=== PATIENT | male | born 1960 | race African-American/Black ===

== ENCOUNTER 2017-11-27 01:16 | Inpatient (IN) ==
[2017-11-27] MEDS ORDERED: MethylPREDNISolone Sod Succinate Inj 125 MG/2 ML Vial IV.PUSH ONE (01:22)
[2017-11-27] MEDS ORDERED: Famotidine PF Inj 20 MG/2 ML Vial IV.PUSH ONE (01:22)
[2017-11-27] MEDS ORDERED: RESP: Racemic Epinephrine 2.25% 0.5 ML Neb ONE (01:33)
[2017-11-27] MEDS ORDERED: RESP: Racemic Epinephrine 2.25% 0.5 ML Neb NEB ONE (01:35)
--- NOTE | 2017-11-27 01:39 | ED ---
HPI General Chief complaint: Allergic Reaction Stated complaint: Pos Allergic Reaction/Evac Time Seen by Provider: 11/27/17 01:22 History of Present Illness HPI narrative: 57-year-old male presents to the emergency department with upper and lower lip angioedema since approximately 8 PM with progressive worsening. Prior to arrival to the emergency department patient did receive a dose of Benadryl and epinephrine. Patient states that he is noted some decrease in swelling to the left side of the upper lip but still feels like there is significant swelling to the upper and lower lip and has some tightness in his throat. Patient does have hypertension and has been prescribed lisinopril in the past but states he has not been on any blood pressure medication for at least 1 week. Patient did eat shellfish this evening. Patient does not represent with a urticarial rash. No prior history of acute allergic reaction was similar type symptoms although does have a sensitivity with itching to morphine and rash and hives to penicillin. No recent antibiotic prescription or use. Related Data Home Medications Medication Instructions Recorded Confirmed lisinopril See Label Instructions .ROUTE 11/27/17 11/27/17 .COMPLEX Allergies Allergy/AdvReac Type Severity Reaction Status Date / Time morphine Allergy Mild ITCHING Unverified 11/27/17 03:20 -SWELLING penicillin G Allergy Mild RASH AND Unverified 11/27/17 03:20 HIVES Review of Systems ROS: all other systems reviewed are negative PMFSH Medical History Medical History Cervical vertebral fusion (Acute) HTN (hypertension) (Acute) Social History Social History Substance History: No History of Abuse Smoking Status: Never smoker How Often Do You Have a Drink Containing Alcohol: 2 to 4 times a month Hx Recent Travel: No Recent Travel in [facility] within the Last 8 Weeks: No Recent Out of Country Travel within the Last 8 Weeks: No Exam Narrative Exam Narrative: GENERAL: Well-nourished, well-developed patient. Patient in mild respiratory distress with upper and lower lip angioedema no buccal edema no posterior pharyngeal or uvular edema identified no stridor or hoarseness. SKIN: Focused skin assessment warm/dry. HEAD: Normocephalic. EYES: No scleral icterus. No injection or drainage. ENT: Upper and lower lip angioedema tongue without angioedema posterior pharynx and uvula without angioedema noted NECK: Supple, trachea midline. No JVD or lymphadenopathy. CARDIOVASCULAR: Regular rate and rhythm without murmurs, gallops, or rubs. RESPIRATORY: Breath sounds equal bilaterally. No accessory muscle use. GASTROINTESTINAL: Abdomen soft, non-tender, nondistended. MUSCULOSKELETAL: No cyanosis, or edema. BACK: Nontender without obvious deformity. No CVA tenderness. Procedures Intubation Time Out Performed: Yes Sedative: other (topical viscous lidoacaine) Laryngoscope: other (nasal intubation w/o laryngoscope) ET Tube Size: 6.5 ET Tube Uncuffed: No Tube Secured Location: other (right nostril) Tube Placement Confirmation: equal breath sounds bilaterally and no breath sounds over epigastrium Patient Tolerated Procedure: well Intubation Complications: none Additional Comments: Patient with angioedema with stridor and hoarseness intubated with 6.5 cuffed endotracheal tube via the right nare. Consult placed to anesthesiologist recommends 2% lidocaine via endotracheal tube for laryngospasm Course Initial Documented Vital Signs Pulse Rate 90 11/27/17 01:33 Respiratory Rate 20 11/27/17 01:33 Last Documented Vital Signs Temperature 98.5 F 11/27/17 02:00 Pulse Rate 100 H 11/27/17 06:08 Respiratory Rate 18 11/27/17 06:08 Blood Pressure 151/106 H 11/27/17 06:08 Pulse Oximetry 96 11/27/17 06:08 Critical Care Time Critical Care Time: Yes Total Critical Care Time: 35 Attestation: Aggregate critical care time was 35 minutes. Time to perform other separately billable procedures was not included in the critical care time. My time did not include minutes spent treating any other patients simultaneously or on activities that did not directly contribute to the patient's treatment. The services I provided to this patient were to treat and/or prevent clinically significant deterioration that could result in: Anaphylaxis, arrhythmia, respiratory arrest, I provided critical care services requiring my management, as noted below: Chart data review, documentation time, medication orders and management, vital sign assessments/reviewing monitor data, ordering and reviewing lab tests, ordering and interpreting/reviewing x-rays and diagnostic studies, care of the patient and discussion of the patient with the admitting physicians. Medical Decision Making MDM Narrative Medical decision making narrative: 57-year-old male with acute allergic reaction /angioedema without anaphylaxis Patient administered IV Solu-Medrol 125 mg, IV Pepcid 20 mg, IV Benadryl 25 mg, IM epinephrine 1-1000 concentration and an albuterol updraft 1 Patient complaining of throat irritation and swelling administered racemic epinephrine 1 nebulized treatment Patient with nausea increasing throat tightness and developing some hoarseness and mild stridor decision was made to nasally intubate the patient. Viscous lidocaine applied to the endotracheal tube and patient nasally intubated through the right naris without difficulty. Patient with complaint of irritation from endotracheal tube administered nebulized lidocaine 4% At 2:50 AM turn sewer at bedside Differential Diagnosis Differential Diagnosis: Angioedema, allergic reaction; anaphylaxis Medical Records Medical records reviewed: Yes I reviewed the patient's medical records. Lab Data Result diagrams: 11/27/17 01:54 11/27/17 01:54 Lab Results 11/27/17 11/27/17 11/27/17 Range/Units 01:54 01:54 01:54 WBC 5.6 (4.0-11.0) th/mm3 RBC 4.14 L (4.50-5.90) mil/mm3 Hgb 11.7 L (13.0-17.0) gm/dL Hct 34.9 L (39.0-51.0) % MCV 84.2 (80.0-100.0) fL MCH 28.3 (27.0-34.0) pg MCHC 33.7 (32.0-36.0) % RDW 17.5 H (11.6-17.2) % Plt Count 195 (150-450) th/mm3 MPV 9.7 (7.0-11.0) fL Prelim Diff (Auto) Slide review pending Neut % (Auto) 23.4 (16.0-70.0) % Lymph % (Auto) 67.0 H (9.0-44.0) % [place] % (Auto) 7.4 (0.0-8.0) % Eos % (Auto) 1.5 (0.0-4.0) % Baso % (Auto) 0.7 (0.0-2.0) % Neut # (Auto) 1.3 L (1.8-7.7) th/mm3 Lymph # (Auto) 3.7 (1.0-4.8) th/mm3 [place] # (Auto) 0.4 (0.0-0.9) th/mm3 Eos # (Auto) 0.1 (0.0-0.4) th/mm3 Baso # (Auto) 0.0 (0.0-0.2) th/mm3 WBC Differential . Diff Scan Auto diff confirmed Differential Comment . PT 10.0 (9.8-11.6) sec INR 1.0 Ratio APTT 24.0 L (24.3-30.1) sec Sodium 139 (136-145) meq/L Potassium 3.1 L (3.5-5.1) meq/L Chloride 103 (98-107) meq/L Carbon Dioxide 27.2 (21.0-32.0) meq/L Anion Gap 9 (5-15) meq/L BUN 8 (7-18) mg/dL Creatinine 1.17 (0.60-1.30) mg/dL Estimated GFR 78 L (>89) mL/min Random Glucose 110 H (74-106) mg/dL Calcium 8.5 (8.5-10.1) mg/dL Blood Type Blood Type Recheck Antibody Screen 11/27/17 Range/Units 01:54 WBC (4.0-11.0) th/mm3 RBC (4.50-5.90) mil/mm3 Hgb (13.0-17.0) gm/dL Hct (39.0-51.0) % MCV (80.0-100.0) fL MCH (27.0-34.0) pg MCHC (32.0-36.0) % RDW (11.6-17.2) % Plt Count (150-450) th/mm3 MPV (7.0-11.0) fL Prelim Diff (Auto) Neut % (Auto) (16.0-70.0) % Lymph % (Auto) (9.0-44.0) % [place] % (Auto) (0.0-8.0) % Eos % (Auto) (0.0-4.0) % Baso % (Auto) (0.0-2.0) % Neut # (Auto) (1.8-7.7) th/mm3 Lymph # (Auto) (1.0-4.8) th/mm3 [place] # (Auto) (0.0-0.9) th/mm3 Eos # (Auto) (0.0-0.4) th/mm3 Baso # (Auto) (0.0-0.2) th/mm3 WBC Differential Diff Scan Differential Comment PT (9.8-11.6) sec INR Ratio APTT (24.3-30.1) sec Sodium (136-145) meq/L Potassium (3.5-5.1) meq/L Chloride (98-107) meq/L Carbon Dioxide (21.0-32.0) meq/L Anion Gap (5-15) meq/L BUN (7-18) mg/dL Creatinine (0.60-1.30) mg/dL Estimated GFR (>89) mL/min Random Glucose (74-106) mg/dL Calcium (8.5-10.1) mg/dL Blood Type O Positive Blood Type Recheck Required Antibody Screen Negative Imaging Data Radiologist's impression: Chest X-Ray 11/27/17 02:02 CONCLUSION: Clear lungs. Discharge Plan Discharge Disposition Patient Disposition: 30 Still Patient Discharge Condition Condition: Stable Discharge Details Diagnosis: Angioedema Physicians Team ED Provider: Saira Albright Primary Care Provider: Primary Care Elina Dumont Attending Provider: Sohail Correa Status ED Status: Admitted Patient
[2017-11-27 02:19] LABS: Baso % (Auto) 0.7 % (0.0-2.0); Eos # (Auto) 0.1 th/mm3 (0.0-0.4); Eos % (Auto) 1.5 % (0.0-4.0); Hematocrit 34.9 % (39.0-51.0); Hemoglobin 11.7 gm/dL (13.0-17.0); Lymph # (Auto) 3.7 th/mm3 (1.0-4.8); Mean Corpuscular HGB Conc 33.7 % (32.0-36.0); Mean Corpuscular Hemoglobin 28.3 pg (27.0-34.0); Mean Corpuscular Volume 84.2 fL (80.0-100.0); Mean Platelet Volume 9.7 fL (7.0-11.0); Mono # (Auto) 0.4 th/mm3 (0.0-0.9); Mono % (Auto) 7.4 % (0.0-8.0); Neut # (Auto) 1.3 th/mm3 (1.8-7.7); Neut % (Auto) 23.4 % (16.0-70.0); Platelet Count 195 th/mm3 (150-450); Red Blood Count 4.14 mil/mm3 (4.50-5.90); Red Cell Distribution Width 17.5 % (11.6-17.2); White Blood Count 5.6 th/mm3 (4.0-11.0)
[2017-11-27 02:33] LABS: Calcium 8.5 mg/dL (8.5-10.1); Carbon Dioxide 27.2 meq/L (21.0-32.0); Potassium 3.1 meq/L (3.5-5.1)
--- NOTE | 2017-11-27 02:39 | XR ---
EXAM DATE: 11/27/2017 2:34 AM EDT AGE/SEX: 57 years / Male INDICATIONS: Shortness of breath status post allergic reaction. CLINICAL DATA: This is the patient's initial encounter. Patient reports that signs and symptoms have been present for 1 day and indicates a pain score of Nonresponsive. MEDICAL/SURGICAL HISTORY: Non-responsive. Non-responsive. COMPARISON: No prior exams available for comparison. FINDINGS: Endotracheal tube is noted and the tip terminates approximately 1.9 cm above the bird. The lungs ar e clear. Heart size is normal. Osseous structures are intact. CONCLUSION: Clear lungs. Electronically signed by: Gary Foreman MD 11/27/2017 2:37 AM EDT
[2017-11-27] MEDS ORDERED: Ketorolac Inj 30 MG/ML (IVP) Vial IV.PUSH ONE (02:41)
[2017-11-27] MEDS ORDERED: RESP: Lidocaine PF 4% 5 ML Neb NEB ONE (02:43)
[2017-11-27] MEDS ORDERED: Acetaminophen 325 MG Tablet PO PRN (02:50)
[2017-11-27] MEDS ORDERED: Bisacodyl 10 MG Supp RECTAL PRN (02:50)
[2017-11-27] MEDS ORDERED: Morphine Sulfate Inj 2 MG/ML Vial IV.PUSH PRN (02:50)
--- NOTE | 2017-11-27 03:13 | P.HPCC ---
History of Present Illness Primary Care Physician: No Primary Care Physician History of Present Illness: 57-year-old male presents with upper and lower lip angioedema since approximately 8 PM with progressive worsening. Prior to arrival to the emergency department patient did receive a dose of Benadryl and epinephrine. Patient noticed some decrease in swelling to the left side of the upper lip but still feels like there is significant swelling to the upper and lower lip and has some tightness in his throat. Patient does have hypertension and has been prescribed lisinopril in the past but states he has not been on any blood pressure medication for at least 1 week. Patient did eat shellfish this evening. Patient does not present with a urticarial rash. No prior history of acute allergic reaction with similar type symptoms although does have a sensitivity with itching to morphine and rash and hives to penicillin. No recent antibiotic prescription or use. Inpatient Certification: I certify that the inpatient services were ordered in accordance with Medicare regulations governing the order. This includes certification that hospital inpatient services are reasonable and necessary and in the case of services not specified as inpatient-only under 42 CFR 419.22(n), that they are appropriately provided as inpatient services in accordance to with the 2-midnight benchmark under 43 CFR 412.3(e) Estimated Total Length of Stay (Days): 5 Plans for Post Hospital Care: Not yet determined Review of Systems unobtainable due to endotracheal tube PMFSH - Medical History Medical History: Medical History (Last Updated 11/27/17 @ 03:06 by Sohail Correa MD) HTN (hypertension) - Tobacco History Smoking Status: Never smoker - Alcohol History How Often Do You Have a Drink Containing Alcohol: 2 to 4 times a month - Substance Use History Substance History: No History of Abuse - Travel History History of Recent Travel: No Recent Travel in the [place] Within the Last 8 Weeks: No Recent Travel Out of the Country Within the Last 8 Weeks: No Medications and Allergies Active Medications: Active Medications Acetaminophen (Tylenol) 650 mg PO Q6H PRN PRN Reason: PAIN 1-10 AND/OR FEVER >101F Al Hydroxide/Mg Hydroxide (Milk Of Magnjanice Liq) 30 ml PO Q12H PRN PRN Reason: Mild Constipation Albuterol (Duoneb Neb (Prn)) 1 ampul NEB Q2HR NEB PRN PRN Reason: WHEEZING Albuterol (Duoneb Neb (Veronika)) 1 ampul NEB Q4HR NEB VERONIKA Bisacodyl (Dulcolax Supp) 10 mg RECTAL DAILY PRN PRN Reason: SEVERE CONSITIPATION Chlorhexidine Gluconate (Chlorhexidine 2% Cloth) 3 pack TOPICAL DAILY@0400 VERONIKA Stop: 12/02/17 03:59 Chlorhexidine Gluconate (Chlorhexidine 2% Cloth) 3 pack TOPICAL DAILY@0400 PRN PRN Reason: Extra cloth needed Stop: 12/02/17 03:59 Enoxaparin Sodium (Lovenox Inj) 40 mg SQ Q24H VERONIKA Famotidine (Pepcid Pf Inj) 20 mg IV.PUSH Q12HR VERONIKA Sodium Chloride (Ns Inj) 1,000 mls @ 84 mls/hr IV.CONT .[id number] VERONIKA Lactulose (Lactulose Liq) 30 ml PO DAILY PRN PRN Reason: SEVERE CONSITIPATION Methylprednisolone Sodium Succinate (Solumedrol Inj) 40 mg IV.PUSH Q6H VERONIKA Metoclopramide HCl (Reglan Inj) 5 mg IV.PUSH Q6HR PENDING SALE TO [facility]; Protocol Morphine Sulfate (Morphine Inj) 2 mg IV.PUSH Q2H PRN PRN Reason: PAIN SCALE 6 TO 10 Ondansetron HCl (Zofran Inj) 4 mg IV.PUSH Q6H PRN PRN Reason: NAUSEA OR VOMITING Senna/Docusate Sodium (Maria Esther-Colace) 1 tab PO BID PENDING SALE TO [facility] Sennosides (Senokot) 17.2 mg PO Q12H PRN PRN Reason: Moderate Constipation Sodium Chloride (Ns Flush) 2 ml IV.FLUSH BID PENDING SALE TO [facility] Sodium Chloride (Ns Flush) 2 ml IV.FLUSH PRN PRN PRN Reason: FLUSH AFTER USING IV ACCESS Allergies Allergy/AdvReac Type Severity Reaction Status Date / Time morphine Allergy Mild ITCHING Unverified 11/27/17 03:20 -SWELLING penicillin G Allergy Mild RASH AND Unverified 11/27/17 03:20 HIVES Home Medications Medication Instructions Recorded Confirmed Type lisinopril See Label Instructions .ROUTE 11/27/17 11/27/17 History .COMPLEX Results - Labs CBC & Chem 7: 11/27/17 01:54 11/27/17 01:54 Labs: Short CBC 11/27/17 Range/Units 01:54 WBC 5.6 (4.0-11.0) th/mm3 Hgb 11.7 L (13.0-17.0) gm/dL Hct 34.9 L (39.0-51.0) % Plt Count 195 (150-450) th/mm3 [facility] 11/27/17 01:54 Sodium 139 Potassium 3.1 L Chloride 103 Carbon Dioxide 27.2 BUN 8 Creatinine 1.17 Calcium 8.5 - Imaging Impressions Chest X-Ray 11/27/17 02:02 CONCLUSION: Clear lungs. Exam - Constitutional severe distress - Routine HEENT Exam Head: Present: atraumatic, facial swelling Comments: Upper and lower lip angioedema tongue without angioedema posterior pharynx and uvula without angioedema noted - Routine Neck Exam Present: supple. Absent: JVD, carotid bruit - Routine Respiratory Exam Absent: accessory muscle use, stridor, wheezes, crackles - Routine Cardiovascular Exam Present: RRR, S1, S2 - Routine Abdominal Exam Present: soft, normoactive bowel sounds. Absent: tenderness - Routine Extremities Exam Absent: cyanosis, clubbing, edema - Routine Skin Exam Present: intact. Absent: cyanosis, erythema - Routine Neurological Exam Present: alert, moving all extremities Caprini VTE Risk Assessment Caprini VTE Risk Assessment: Moderate/High Risk (score >= 2) Caprini Risk Assessment Model: Point Value = 1 Point Value = 2 Point Value = 3 Point Value = 5 Age 41-60 Minor surgery BMI > 25 kg/m2 Swollen legs Varicose veins or History of unexplained or recurrent spontaneous Oral contraceptives or hormone replacement Sepsis (< 1 month) Serious lung disease, including pneumonia (< 1 month) Abnormal pulmonary function Acute myocardial infarction Congestive heart failure (< 1 month) History of inflammatory bowel disease Medical patient at bed rest Age 61-74 Arthroscopic surgery Major open surgery (> 45 min) Laparoscopic surgery (> 45 min) Malignancy Confined to bed (> 72 hours) Immobilizing plaster cast Central venous access Age >= 75 History of VTE Family history of VTE Factor V Leiden Prothrombin [id number] Lupus anticoagulant Anticardiolipin antibodies Elevated serum homocysteine Heparin-induced thrombocytopenia Other congenital or acquired thrombophilia Stroke (< 1 month) Elective arthroplasty Hip, pelvis, or leg fracture Acute spinal cord injury (< 1 month) Prophylaxis Regimen: Total Risk Factor Score Risk Level Prophylaxis Regimen 0-1 Low Early ambulation 2 Moderate Order ONE of the following: *Sequential Compression Device (SCD) *Heparin 5000 units SQ BID 3-4 Higher Order ONE of the following medications: *Heparin 5000 units SQ TID *Enoxaparin/Lovenox 40 mg SQ daily (WT < 150 kg, CrCl > 30 mL/min) *Enoxaparin/Lovenox 30 mg SQ daily (WT < 150 kg, CrCl > 10-29 mL/min) *Enoxaparin/Lovenox 30 mg SQ BID (WT < 150 kg, CrCl > 30 mL/min) AND/OR *Sequential Compression Device (SCD) 5 or more Highest Order ONE of the following medications: *Heparin 5000 units SQ TID (Preferred with Epidurals) *Enoxaparin/Lovenox 40 mg SQ daily (WT < 150 kg, CrCl > 30 mL/min) *Enoxaparin/Lovenox 30 mg SQ daily (WT < 150 kg, CrCl > 10-29 mL/min) *Enoxaparin/Lovenox 30 mg SQ BID (WT < 150 kg, CrCl > 30 mL/min) AND *Sequential Compression Device (SCD) Assessment and Plan - Assessment and Plan Plan: Respiratory failure Angioedema -Nasally intubated by ED attending -Continue IV steroid -Continue H1 H2 antagonists -Humidified air Hypertension -DC lisinopril -Labetalol as needed to keep SBP less than 160 Hypokalemia -Electrolyte replacement per ICU protocol Anemia -Monitor H&H -Transfuse if hemoglobin less than 7 DVT GI prophylaxis -Teds SCDs -Subcu Lovenox -Pepcid Critical Care: The total critical care time was 35 minutes. Time to perform other separately billable procedures was not included in the critical care time.
[2017-11-27] MEDS ORDERED: Labetalol HCl Inj 100 MG/20 ML Vial IV.PUSH PRN (03:26)
[2017-11-27] MEDS ORDERED: Potassium Phosphate Inj 30 MMOL in Sodium Chlor 0.9% Inj 250 ML IV.SIG PRN ×2 (03:35→07:28)
[2017-11-27] MEDS ORDERED: Magnesium Sulfate Inj 4 GM in Sodium Chlor 0.9% Inj 92 ML IV.SIG PRN ×2 (03:35→07:28)
[2017-11-27] MEDS ORDERED: Sodium Phosphate Inj 30 MMOL in Sodium Chlor 0.9% Inj 250 ML IV.SIG PRN ×2 (03:35→07:28)
[2017-11-27] MEDS ORDERED: Potassium Chloride 25 MEQ Effervescent Tablet PO PRN ×2 (03:35→07:28)
[2017-11-27] MEDS ORDERED: Potassium Chlor 20 mEq Premix 20 MEQ/100 ML PIGGYBACK IV.SIG PRN ×4 (03:35→07:28)
[2017-11-27] MEDS ORDERED: Magnesium Sulfate Inj 2 GM in Sodium Chlor 0.9% Inj 96 ML IV.SIG PRN ×2 (03:35→07:28)
[2017-11-27] MEDS ORDERED: Potassium Chlor 40 mEq Premix 40 MEQ/100 ML PIGGYBACK IV.SIG PRN ×4 (03:35→07:28)
[2017-11-27] MEDS ORDERED: Potassium Phosphate 500 MG Soluble Tablet PO PRN ×4 (03:35→07:28)
[2017-11-27] MEDS ORDERED: Magnesium Oxide 400 MG Tablet PO PRN ×2 (03:35→07:28)
[2017-11-27] MEDS ORDERED: Chlorhexidine Gluconate 2% 1 Pack (2 Cloths) TOPICAL PRN (04:00)
[2017-11-27] MEDS ORDERED: Lidocaine 2% 100 MG/5 ML Syringe IV.PUSH ONE (05:00)
[2017-11-27] MEDS ORDERED: Dexmedetomidine Inj 200 MCG in Sodium Chlor 0.9% Inj 48 ML IV.CONT PRN (05:08)
[2017-11-27] MEDS: Sod Chloride 0.9% Inj 1,000 ML IV.CONT SCH ×3 (05:13→15:05)
[2017-11-27] MEDS: MethylPREDNISolone Sod Succinate Inj 40 MG/ML Vial IV.PUSH SCH ×4 (05:29→21:57)
[2017-11-27] MEDS: Enoxaparin Inj 40 MG/0.4 ML Syringe SQ SCH (06:25)
[2017-11-27] MEDS ORDERED: Etomidate Inj 20 MG/10 ML Ampul IV.PUSH ONE (07:15)
[2017-11-27] MEDS ORDERED: Dextrose 50% in Water 50 ML Vial IV.PUSH PRN (07:47)
[2017-11-27] MEDS ORDERED: Etomidate Inj 40 MG/20 ML Vial IV.PUSH ONE (08:15)
[2017-11-27] MEDS: Famotidine PF Inj 20 MG/2 ML Vial IV.PUSH SCH ×2 (08:40→20:24)
--- NOTE | 2017-11-27 09:13 | XR ---
EXAM DATE: 11/27/2017 8:59 AM EDT AGE/SEX: 57 years / Male INDICATIONS: Evaluate respiratory disease. CLINICAL DATA: This is the patient's initial encounter. Patient reports that signs and symptoms have been present for 1 day and indicates a pain score of 0/10. MEDICAL/SURGICAL HISTORY: None. None. COMPARISON: [facility] [place], CHEST 1V SINGLE AP, 11/27/2017. . FINDINGS: A single AP view of the chest demonstrates the lungs to be symmetrically aerated without evidence of mass, infiltrate or effusion. Tip of the endotracheal tube 2 cm from the bird. The cardiomediastina l contours are unremarkable. Osseous structures are intact. CONCLUSION: No acute infiltrate or effusion. Electronically signed by: Jorden Fowler MD 11/27/2017 9:12 AM EDT
[2017-11-27 09:38] LABS: ABG Base Excess -4.3 mmol/L (-2-2); ABG PCO2 38 mmHg (38-42); ABG PO2 532 mmHG (61-120)
[2017-11-27] MEDS: Propofol 1000 mg/100 ml Inj 1,000 MG/100 ML BOTTLE IV.CONT PRN ×3 (10:03→20:15)
[2017-11-27] MEDS: Midazolam 50 MG/50 ML Inj 50 MG/50 ML BAG IV.CONT PRN ×2 (10:05→18:44)
--- NOTE | 2017-11-27 10:10 | P.PNCC ---
Subjective Subjective Remarks/Hospital Course: 57-year-old male presents with upper and lower lip angioedema since approximately 8 PM with progressive worsening. Prior to arrival to the emergency department patient did receive a dose of Benadryl and epinephrine. Patient noticed some decrease in swelling to the left side of the upper lip but still feels like there is significant swelling to the upper and lower lip and has some tightness in his throat. Patient does have hypertension and has been prescribed lisinopril in the past but states he has not been on any blood pressure medication for at least 1 week. Patient did eat shellfish this evening. Patient does not present with a urticarial rash. No prior history of acute allergic reaction with similar type symptoms although does have a sensitivity with itching to morphine and rash and hives to penicillin. No recent antibiotic prescription or use. SUBJECTIVE 11/27: Afebrile. Currently sedated on propofol and midazolam drips and placed on the ventilator due to severe angioedema.. Discussed with likely cause angioedema including possibly blood pressure medication versus iodine/ shellfish. She expressed understanding. Objective Vital Signs / I&O: Vital Signs 11/27/17 01:33 11/27/17 01:43 11/27/17 02:00 Temperature 98.5 F Pulse Rate 90 88 93 H Respiratory Rate 20 18 24 Blood Pressure 125/75 Pulse Oximetry 100 11/27/17 03:19 11/27/17 04:15 11/27/17 06:08 Temperature Pulse Rate 104 H 99 H 100 H Respiratory Rate 20 22 18 Blood Pressure 151/84 H 151/106 H Pulse Oximetry 100 96 11/27/17 08:15 11/27/17 08:30 11/27/17 09:40 Temperature Pulse Rate 104 H Respiratory Rate 23 16 Blood Pressure Pulse Oximetry 100 100 Intake & Output 11/26/17 11/27/17 11/27/17 18:59 06:59 18:59 Weight 83.915 kg Result Diagrams: 11/27/17 01:54 11/27/17 01:54 Imaging: Chest X-Ray 11/27/17 02:02 CONCLUSION: Clear lungs. Chest X-Ray 11/27/17 07:20 CONCLUSION: No acute infiltrate or effusion. Objective Remarks: GENERAL: 57-year-old AA male currently nasally intubated and right nares sedated on propofol midazolam drips in restraints/soft SKIN: Warm and dry. No rash HEAD: Atraumatic. Normocephalic. EYES: Pupils equal and round. No scleral icterus. No injection or drainage. ENT: No nasal bleeding or discharge. Mucous membranes pink and moist. 0.5 ET tube in right nares. NECK: Trachea midline. No JVD. Obvious swelling involving pretracheal regions. Unable to identify the lumen opens mouth. CARDIOVASCULAR: Cardiac, RRR. S1, S3 no S4. Without murmur RESPIRATORY: No accessory muscle use. Clear to auscultation. Breath sounds equal bilaterally. GASTROINTESTINAL: Abdomen soft, non-tender, nondistended. Hepatic and splenic margins not palpable. MUSCULOSKELETAL: Extremities without clubbing, cyanosis, or edema. No obvious deformities. NEUROLOGICAL: Currently sedated on propofol midazolam drips. Prior to intubation,. No obvious cranial nerve deficits. Motor grossly within normal limits. Five out of 5 muscle strength in the arms and legs. Assessment and Plan - Assessment and Plan Plan: Neuro/Psych: Currently on propofol drip at 50 mcg per kilogram per minute midazolam drip at 5 mg an hour for sedation/analgesia while intubated Goal of RASS of -4 No daily sedation vacation until emergent airway edema subsides Ofirmev 1 g IV every 8 hours as needed fever Noted allergy to morphine/pruritus CV: Sinus tachycardia Essential hypertension Currently on normal saline at 100 cc an hour As needed labetalol/Nitropaste for hypertension Resp: Acute respiratory failure secondary to angioedema [facility] /04/26/69 Ventilator bundle Albuterol/ipratropium aerosols every 4 hours with albuterol aerosols every 2 hours as needed for dyspnea Spontaneous breathing trials when clinically indicated GI: NPO status Famotidine for GI prophylaxis Dulcolax suppository as needed constipation : Condom catheter Endo: Sliding scale insulin with Accu-Cheks with aspart insulin/low particle every 6 hours to maintain euglycemia Renal: Creatinine currently within normal limits Monitor urine output Accurate I's and O's Heme: Normocytic anemia Monitor CBC daily. Follow trends. No indication for transfusion of the breast at this time. ID: Monitor for signs and symptomatology of infection MSK: PT evaluate and treat FEN: Hypokalemia Replace electrolytes per ICU electrolyte protocol. Recheck potassium and magnesium 1500 hrs. today. Access -Utilize peripheral IV. Central line if indicated Prophylaxis -GI -famotidine- DVT -SCD//holding enoxaparin 24 hours with airway emergency and placed Additional 35 minutes critical care time. Discussed with in length. Care plan discussed and all questions answered.
[2017-11-27] MEDS: Chlorhexidine Gluconate 2% 1 Pack (2 Cloths) TOPICAL SCH (11:36)
[2017-11-27] MEDS: Senna/Docusate Sodium 8.6/50 MG Tablet PO SCH ×2 (11:37→20:26)
[2017-11-27] MEDS: Chlorhexidine 0.12% Oral Kit 15 ML UDC OROPHARYNG SCH ×2 (11:38→20:24)
[2017-11-27] MEDS: Insulin NovoLOG Aspart Correctional Sugar Inj SQ SCH ×2 (12:06→17:51)
[2017-11-27] MEDS: Oral Hygiene Kit OROPHARYNG SCH (17:27)
[2017-11-27 21:13] LABS: Magnesium 1.7 mg/dL (1.5-2.5); Potassium 4.3 meq/L (3.5-5.1)
[2017-11-27] MEDS: Hypromellose 0.3% Opth Gel 10 GM Bottle EACH EYE SCH (21:57)
[2017-11-28] MEDS: Labetalol HCl Inj 100 MG/20 ML Vial IV.PUSH PRN ×5 (00:44→20:01)
[2017-11-28] MEDS: Propofol 1000 mg/100 ml Inj 1,000 MG/100 ML BOTTLE IV.CONT PRN ×6 (00:55→21:13)
[2017-11-28 03:46] LABS: Baso % (Auto) 0.2 % (0.0-2.0); Hematocrit 30.4 % (39.0-51.0); Hemoglobin 9.8 gm/dL (13.0-17.0); Lymph # (Auto) 0.5 th/mm3 (1.0-4.8); Lymph % (Auto) 10.9 % (9.0-44.0); Mean Corpuscular HGB Conc 32.3 % (32.0-36.0); Mean Corpuscular Volume 86.6 fL (80.0-100.0); Mean Platelet Volume 9.9 fL (7.0-11.0); Mono # (Auto) 0.2 th/mm3 (0.0-0.9); Neut # (Auto) 4.1 th/mm3 (1.8-7.7); Neut % (Auto) 84.9 % (16.0-70.0); Platelet Count 153 th/mm3 (150-450); Red Blood Count 3.51 mil/mm3 (4.50-5.90); Red Cell Distribution Width 17.6 % (11.6-17.2); White Blood Count 4.8 th/mm3 (4.0-11.0)
[2017-11-28] MEDS: Sod Chloride 0.9% Inj 1,000 ML IV.CONT SCH ×2 (03:54→21:48)
[2017-11-28] MEDS: Oral Hygiene Kit OROPHARYNG SCH ×3 (03:55→15:38)
[2017-11-28] MEDS: Chlorhexidine Gluconate 2% 1 Pack (2 Cloths) TOPICAL SCH (03:56)
[2017-11-28] MEDS: MethylPREDNISolone Sod Succinate Inj 40 MG/ML Vial IV.PUSH SCH ×4 (03:56→23:44)
[2017-11-28 04:00] LABS: Albumin 2.7 g/dL (3.4-5.0); Anion Gap 9 meq/L (5-15); Aspartate Aminotransferase 57 U/L (15-37); Blood Urea Nitrogen 14 mg/dL (7-18); Calcium 8.4 mg/dL (8.5-10.1); Carbon Dioxide 22.4 meq/L (21.0-32.0); Chloride 110 meq/L (98-107); Glomerular Filtration Rate 70 mL/min (>89); Glucose,Random 156 mg/dL (74-106); Magnesium 1.8 mg/dL (1.5-2.5); Sodium 141 meq/L (136-145)
[2017-11-28 04:01] LABS: Prothrombin Time 10.4 sec (9.8-11.6)
[2017-11-28 04:04] LABS: Alanine Aminotransferase 52 U/L (12-78); Alkaline Phosphatase 65 U/L (45-117); Phosphorus 2.9 mg/dL (2.5-4.9); Total Protein 7.1 g/dL (6.4-8.2)
--- NOTE | 2017-11-28 05:26 | XR ---
EXAM DATE: 11/28/2017 5:19 AM EDT AGE/SEX: 57 years / Male INDICATIONS: Shortness of breath, possible pulmonary disease. CLINICAL DATA: This is the patient's subsequent encounter. Patient reports that signs and symptoms h ave been present for 2 days and indicates a pain score of Nonresponsive. MEDICAL/SURGICAL HISTORY: Non-responsive. Non-responsive. COMPARISON: [facility], CHEST 1V SINGLE AP, 11/27/2017. . FINDINGS: Endotracheal tube tip at the inferior margin of the clavicles. Lungs are clear. Osseous structures ar e intact. CONCLUSION: Clear lungs. Electronically signed by: Gary Foreman MD 11/28/2017 5:25 AM EDT
[2017-11-28] MEDS: Insulin NovoLOG Aspart Correctional Sugar Inj SQ SCH ×4 (05:35→17:59)
[2017-11-28] MEDS: Midazolam 50 MG/50 ML Inj 50 MG/50 ML BAG IV.CONT PRN ×2 (06:35→19:30)
[2017-11-28] MEDS: Hypromellose 0.3% Opth Gel 10 GM Bottle EACH EYE SCH ×2 (08:16→23:30)
[2017-11-28] MEDS: Chlorhexidine 0.12% Oral Kit 15 ML UDC OROPHARYNG SCH ×2 (08:16→23:30)
[2017-11-28] MEDS: Famotidine PF Inj 20 MG/2 ML Vial IV.PUSH SCH ×2 (08:17→23:31)
[2017-11-28] MEDS: Senna/Docusate Sodium 8.6/50 MG Tablet PO SCH ×2 (08:18→23:31)
--- NOTE | 2017-11-28 11:21 | P.PNCC ---
Subjective Subjective Remarks/Hospital Course: 57-year-old male presents with upper and lower lip angioedema since approximately 8 PM with progressive worsening. Prior to arrival to the emergency department patient did receive a dose of Benadryl and epinephrine. Patient noticed some decrease in swelling to the left side of the upper lip but still feels like there is significant swelling to the upper and lower lip and has some tightness in his throat. Patient does have hypertension and has been prescribed lisinopril in the past but states he has not been on any blood pressure medication for at least 1 week. Patient did eat shellfish this evening. Patient does not present with a urticarial rash. No prior history of acute allergic reaction with similar type symptoms although does have a sensitivity with itching to morphine and rash and hives to penicillin. No recent antibiotic prescription or use. 11/27: Afebrile. Currently sedated on propofol and midazolam drips and placed on the ventilator due to severe angioedema.. Discussed with likely cause angioedema including possibly blood pressure medication versus iodine/ shellfish. She expressed understanding. SUBJECTIVE 11/28: Remains deeply sedated on propofol and midazolam drips. Hemodynamically stable. Adequate urine output. It appears that his mucosal/oral edema has improved Objective Vital Signs / I&O: Vital Signs 11/27/17 11:30 11/27/17 11:40 11/27/17 11:45 Temperature Pulse Rate 87 87 92 H Respiratory Rate 16 16 16 Blood Pressure 112/69 120/74 Pulse Oximetry 100 99 99 11/27/17 12:00 11/27/17 12:15 11/27/17 12:30 Temperature Pulse Rate 93 H 93 H 92 H Respiratory Rate 16 16 16 Blood Pressure 109/62 113/59 L 109/64 Pulse Oximetry 99 98 97 11/27/17 12:45 11/27/17 13:00 11/27/17 13:15 Temperature Pulse Rate 93 H 95 H 93 H Respiratory Rate 16 16 16 Blood Pressure 110/66 112/68 122/75 Pulse Oximetry 98 98 98 11/27/17 13:30 11/27/17 13:45 11/27/17 14:00 Temperature Pulse Rate 92 H 93 H 91 H Respiratory Rate 16 19 16 Blood Pressure 123/74 151/92 H 136/75 Pulse Oximetry 98 97 99 11/27/17 14:15 11/27/17 14:30 11/27/17 14:45 Temperature Pulse Rate 91 H 90 89 Respiratory Rate 16 16 16 Blood Pressure 128/79 136/83 134/82 Pulse Oximetry 99 99 99 11/27/17 15:00 11/27/17 15:11 11/27/17 15:15 Temperature Pulse Rate 91 H 90 90 Respiratory Rate 16 16 16 Blood Pressure 147/90 H 137/81 Pulse Oximetry 99 98 98 11/27/17 15:30 11/27/17 15:45 11/27/17 16:00 Temperature 99.2 F Pulse Rate 94 H 97 H 100 H Respiratory Rate 16 16 16 Blood Pressure 135/79 141/85 H 143/85 H Pulse Oximetry 98 99 98 11/27/17 16:15 11/27/17 16:30 11/27/17 16:45 Temperature Pulse Rate 97 H 94 H 94 H Respiratory Rate 16 16 17 Blood Pressure 143/83 H 139/80 142/88 H Pulse Oximetry 98 98 98 11/27/17 17:00 11/27/17 17:15 11/27/17 19:45 Temperature Pulse Rate 93 H 92 H 82 Respiratory Rate 16 16 16 Blood Pressure 139/83 139/80 Pulse Oximetry 99 99 11/27/17 20:00 11/27/17 20:40 11/28/17 00:00 Temperature 98.7 F 97.8 F Pulse Rate 90 93 H Respiratory Rate 16 16 16 Blood Pressure 154/89 H 151/90 H Pulse Oximetry 92 L 100 100 11/28/17 00:08 11/28/17 04:00 11/28/17 04:04 Temperature 98.7 F Pulse Rate 92 H 88 88 Respiratory Rate 16 16 16 Blood Pressure 149/86 H Pulse Oximetry 100 98 99 11/28/17 07:50 Temperature Pulse Rate 88 Respiratory Rate 17 Blood Pressure Pulse Oximetry 98 Intake & Output 11/27/17 11/28/17 11/28/17 18:59 06:59 18:59 Intake Total 1150 / 1150 1350 / 1350 100 / 100 Output Total 1500 / 1500 0 / 0 Balance -350 / -350 1350 / 1350 100 / 100 Weight 84.7 kg Intake: IV 1150 / 1150 1350 / 1350 100 / 100 Versed Inj 50 mg In 50 ml @ 2 50 / 50 50 / 50 MG/HR 2 mls/hr IV.CONT TITRATE PRN Rx#:[id number] Diprivan 1000 mg/100 ml Inj 1, 100 / 100 300 / 300 100 / 100 000 mg In 100 ml @ 5 MCG/KG/MIN 2.517 mls/hr IV.CONT TITRATE PRN Rx#:[id number] NS Inj 1,000 ML @ 84 mls/hr IV. 1000 / 1000 1000 / 1000 CONT .[id number] [facility] Rx#:[id number] Oral 0 / 0 Output: Urine/Stool Mix 0 / 0 Urine Amount (Catheter) 1500 / 1500 Straight 1500 / 1500 Other: Bladder Irrigation Fluid - Amount Drained Straight 800 # Bowel Movements 0 # Incontinent Bowel Movements 0 Result Diagrams: 11/28/17 03:11 11/28/17 03:11 Imaging: Chest X-Ray 11/27/17 02:02 CONCLUSION: Clear lungs. Chest X-Ray 11/27/17 07:20 CONCLUSION: No acute infiltrate or effusion. Chest X-Ray 11/28/17 06:00 CONCLUSION: Clear lungs. Objective Remarks: GENERAL: 57-year-old AA male currently nasally intubated and right nares sedated on propofol midazolam drips in restraints/soft SKIN: Warm and dry. No rash HEAD: Atraumatic. Normocephalic. EYES: Pupils equal and round. No scleral icterus. No injection or drainage. ENT: No nasal bleeding or discharge. Mucous membranes pink and moist. 0.5 ET tube in right nares. NECK: Trachea midline. No JVD. Obvious swelling involving pretracheal regions. Unable to identify the lumen opens mouth. CARDIOVASCULAR: Cardiac, RRR. S1, S3 no S4. Without murmur RESPIRATORY: No accessory muscle use. Clear to auscultation. Breath sounds equal bilaterally. GASTROINTESTINAL: Abdomen soft, non-tender, nondistended. Hepatic and splenic margins not palpable. MUSCULOSKELETAL: Extremities without clubbing, cyanosis, or edema. No obvious deformities. NEUROLOGICAL: Currently sedated on propofol midazolam drips. Prior to intubation,. No obvious cranial nerve deficits. Motor grossly within normal limits. Five out of 5 muscle strength in the arms and legs. Assessment and Plan - Assessment and Plan Plan: Neuro/Psych: Currently on propofol drip at 50 mcg per kilogram per minute midazolam drip at 5 mg an hour for sedation/analgesia while intubated Goal of RASS of -4 No daily sedation vacation until emergent airway edema subsides Ofirmev 1 g IV every 8 hours as needed fever Noted allergy to morphine/pruritus CV: Sinus tachycardia Essential hypertension Currently on normal saline at 84 cc an hour As needed labetalol/Nitropaste for hypertension Resp: Acute respiratory failure secondary to angioedema [facility] /04/26/29 Ventilator bundle Albuterol/ipratropium aerosols every 4 hours with albuterol aerosols every 2 hours as needed for dyspnea Spontaneous breathing trials when clinically indicated Currently on methylprednisolone succinate 40 mg IV every 6 hours, diphenhydramine 25 mg every 6 hours and famotidine 20 mg IV twice daily GI: Elevated AST Hypoalbuminemia NPO status Famotidine for GI prophylaxis Dulcolax suppository as needed constipation : Condom catheter replaced with indwelling catheter due to retained urine Endo: Acute hyperglycemia/likely steroid-induced Sliding scale insulin with Accu-Cheks with aspart insulin/low particle every 6 hours to maintain euglycemia Renal: Creatinine currently within normal limits Monitor urine output Accurate I's and O's Heme: Normocytic anemia Monitor CBC daily. Follow trends. No indication for transfusion of the breast at this time. ID: Monitor for signs and symptomatology of infection MSK: PT evaluate and treat FEN: Replace electrolytes per ICU electrolyte protocol. 2 g mag sulfate IV 1 today Access -Utilize peripheral IV. Central line if indicated Prophylaxis -GI -famotidine- DVT -SCD//holding enoxaparin 24 hours with airway emergency and placed 35 minutes critical care time. Discussed with in length. Care plan discussed and all questions answered.
[2017-11-28] MEDS: Mag Sulf 1 gm/100 ml Premix 100 ML IV.SIG SCH ×2 (12:22→14:26)
[2017-11-29] MEDS: Labetalol HCl Inj 100 MG/20 ML Vial IV.PUSH PRN ×5 (00:18→20:00)
[2017-11-29] MEDS: Oral Hygiene Kit OROPHARYNG SCH ×4 (01:49→15:14)
[2017-11-29] MEDS: Insulin NovoLOG Aspart Correctional Sugar Inj SQ SCH ×4 (01:49→17:40)
[2017-11-29] MEDS: Midazolam 50 MG/50 ML Inj 50 MG/50 ML BAG IV.CONT PRN ×3 (01:53→16:48)
[2017-11-29] MEDS: Propofol 1000 mg/100 ml Inj 1,000 MG/100 ML BOTTLE IV.CONT PRN ×6 (01:56→20:52)
[2017-11-29] MEDS: Sod Chloride 0.9% Inj 1,000 ML IV.CONT SCH ×3 (03:59→19:50)
[2017-11-29] MEDS: Chlorhexidine Gluconate 2% 1 Pack (2 Cloths) TOPICAL SCH (04:31)
[2017-11-29] MEDS: Enoxaparin Inj 40 MG/0.4 ML Syringe SQ SCH (04:33)
[2017-11-29] MEDS: MethylPREDNISolone Sod Succinate Inj 40 MG/ML Vial IV.PUSH SCH ×3 (04:33→20:51)
--- NOTE | 2017-11-29 06:20 | XR ---
EXAM DATE: 11/29/2017 5:59 AM EDT AGE/SEX: 57 years / Male INDICATIONS: Shortness of breath, possible pulmonary disease. CLINICAL DATA: This is the patient's subsequent encounter. Patient reports that signs and symptoms h ave been present for 3 days and indicates a pain score of Nonresponsive. MEDICAL/SURGICAL HISTORY: Non-responsive. Non-responsive. COMPARISON: [facility] [place] 1V SINGLE AP, 11/28/2017. . FINDINGS: Portable AP view of the chest demonstrates a normal-sized cardiac silhouette. Endotracheal tube remai ns present. Multiple EKG lines overlie the patient. There is new opacity at the right lung base with partial obscuration of the right hemidiaphragm. No pleural effusion or pneumothorax is identified. Yair janina and soft tissues demonstrate no acute finding. CONCLUSION: New opacity at the right lung base representing either volume loss or airspace consolidation. Electronically signed by: Inderjit Saleh MD 11/29/2017 6:19 AM EDT
[2017-11-29 07:49] LABS: Baso % (Auto) 0.2 % (0.0-2.0); Hematocrit 32.1 % (39.0-51.0); Hemoglobin 10.6 gm/dL (13.0-17.0); Lymph # (Auto) 0.5 th/mm3 (1.0-4.8); Lymph % (Auto) 7.3 % (9.0-44.0); Mean Corpuscular Hemoglobin 28.5 pg (27.0-34.0); Mean Corpuscular Volume 86.3 fL (80.0-100.0); Mean Platelet Volume 10.9 fL (7.0-11.0); Mono # (Auto) 0.5 th/mm3 (0.0-0.9); Mono % (Auto) 7.1 % (0.0-8.0); Neut # (Auto) 5.7 th/mm3 (1.8-7.7); Neut % (Auto) 85.4 % (16.0-70.0); Platelet Count 127 th/mm3 (150-450); Red Blood Count 3.72 mil/mm3 (4.50-5.90); White Blood Count 6.6 th/mm3 (4.0-11.0)
[2017-11-29 08:14] LABS: Calcium 8.5 mg/dL (8.5-10.1); Carbon Dioxide 22.4 meq/L (21.0-32.0); Magnesium 2.2 mg/dL (1.5-2.5); Phosphorus 3.9 mg/dL (2.5-4.9); Potassium 3.8 meq/L (3.5-5.1)
[2017-11-29] MEDS: Hypromellose 0.3% Opth Gel 10 GM Bottle EACH EYE SCH ×2 (08:36→20:49)
[2017-11-29] MEDS: Chlorhexidine 0.12% Oral Kit 15 ML UDC OROPHARYNG SCH ×2 (08:36→22:00)
[2017-11-29] MEDS: Famotidine PF Inj 20 MG/2 ML Vial IV.PUSH SCH ×2 (08:36→20:50)
[2017-11-29] MEDS: Senna/Docusate Sodium 8.6/50 MG Tablet PO SCH ×2 (08:36→20:51)
[2017-11-29] MEDS: amLODIPine 10 MG Tablet NG/OG SCH (13:06)
[2017-11-29] MEDS: hydroCHLOROthiazide 25 MG Tablet PO SCH (13:36)
[2017-11-29] MEDS: hydrALAZINE 50 MG Tablet PO SCH ×2 (13:36→22:00)
--- NOTE | 2017-11-29 13:51 | P.PNCC ---
Subjective Subjective Remarks/Hospital Course: 57-year-old male presents with upper and lower lip angioedema since approximately 8 PM with progressive worsening. Prior to arrival to the emergency department patient did receive a dose of Benadryl and epinephrine. Patient noticed some decrease in swelling to the left side of the upper lip but still feels like there is significant swelling to the upper and lower lip and has some tightness in his throat. Patient does have hypertension and has been prescribed lisinopril in the past but states he has not been on any blood pressure medication for at least 1 week. Patient did eat shellfish this evening. Patient does not present with a urticarial rash. No prior history of acute allergic reaction with similar type symptoms although does have a sensitivity with itching to morphine and rash and hives to penicillin. No recent antibiotic prescription or use. 11/27: Afebrile. Currently sedated on propofol and midazolam drips and placed on the ventilator due to severe angioedema.. Discussed with likely cause angioedema including possibly blood pressure medication versus iodine/ shellfish. She expressed understanding. SUBJECTIVE 11/28: Remains deeply sedated on propofol and midazolam drips. Hemodynamically stable. Adequate urine output. It appears that his mucosal/oral edema has improved. 11/29: Remains sedated, orally intubated on mechanical ventilation. Elevated blood pressure noted. Starting oral amlodipine/HCTZ and hydralazine via OG tube. Objective Vital Signs / I&O: Vital Signs 11/28/17 16:00 11/28/17 16:36 11/28/17 16:40 Temperature 99.0 F Pulse Rate 96 H 96 H Respiratory Rate 16 16 17 Blood Pressure 173/96 H Pulse Oximetry 100 99 11/28/17 20:00 11/28/17 20:05 11/29/17 00:00 Temperature 99.2 F 97.8 F Pulse Rate 86 86 81 Respiratory Rate 16 16 16 Blood Pressure 183/107 H 185/112 H Pulse Oximetry 98 98 97 11/29/17 00:27 11/29/17 04:00 11/29/17 04:54 Temperature 98.1 F Pulse Rate 81 77 81 Respiratory Rate 16 16 17 Blood Pressure 159/88 H Pulse Oximetry 96 97 100 11/29/17 08:00 11/29/17 11:47 Temperature 97.9 F Pulse Rate 80 83 Respiratory Rate 16 16 Blood Pressure 152/89 H Pulse Oximetry 97 100 Intake & Output 11/28/17 11/29/17 11/29/17 18:59 06:59 18:59 Intake Total 400 / 400 1400 / 1400 1100 / 1100 Output Total 400 / 400 1700 / 1700 Balance 0 / 0 -300 / -300 1100 / 1100 Weight 85.6 kg Intake: IV 400 / 400 1400 / 1400 1100 / 1100 Versed Inj 50 mg In 50 ml @ 2 100 / 100 0 / 0 MG/HR 2 mls/hr IV.CONT TITRATE PRN Rx#:[id number] Diprivan 1000 mg/100 ml Inj 1, 300 / 300 300 / 300 100 / 100 000 mg In 100 ml @ 5 MCG/KG/MIN 2.517 mls/hr IV.CONT TITRATE PRN Rx#:[id number] NS Inj 1,000 ML @ 84 mls/hr IV. 1000 / 1000 1000 / 1000 CONT .[id number] [facility] Rx#:[id number] Magnesium Sulfate 1 gm/D5W 100 100 / 100 ml Premix 100 ML @ 100 mls/hr IV.SIG Q1H [facility] Rx#:[id number] Oral 0 / 0 Output: Urine 400 / 400 1700 / 1700 Stool 0 / 0 Urine/Stool Mix 0 / 0 Other: # Bowel Movements 0 0 Result Diagrams: 11/29/17 05:08 11/29/17 05:08 Imaging: Chest X-Ray 11/27/17 02:02 CONCLUSION: Clear lungs. Chest X-Ray 11/27/17 07:20 CONCLUSION: No acute infiltrate or effusion. Chest X-Ray 11/28/17 06:00 CONCLUSION: Clear lungs. Chest X-Ray 11/29/17 06:00 CONCLUSION: New opacity at the right lung base representing either volume loss or airspace consolidation. Objective Remarks: GENERAL: 57-year-old AA male currently nasally intubated and right nares sedated on propofol midazolam drips in restraints/soft SKIN: Warm and dry. No rash HEAD: Atraumatic. Normocephalic. EYES: Pupils equal and round. No scleral icterus. No injection or drainage. ENT: No nasal bleeding or discharge. Mucous membranes pink and moist. 0.5 ET tube in right nares. NECK: Trachea midline. No JVD. Obvious swelling involving pretracheal regions. Unable to identify the lumen opens mouth. CARDIOVASCULAR: Cardiac, RRR. S1, S3 no S4. Without murmur RESPIRATORY: No accessory muscle use. Clear to auscultation. Breath sounds equal bilaterally. GASTROINTESTINAL: Abdomen soft, non-tender, nondistended. Hepatic and splenic margins not palpable. MUSCULOSKELETAL: Extremities without clubbing, cyanosis, or edema. No obvious deformities. NEUROLOGICAL: Currently sedated on propofol midazolam drips. Prior to intubation,. No obvious cranial nerve deficits. Motor grossly within normal limits. Five out of 5 muscle strength in the arms and legs. Assessment and Plan - Assessment and Plan Plan: Neuro/Psych: Currently on propofol drip at 50 mcg per kilogram per minute midazolam drip at 5 mg an hour for sedation/analgesia while intubated Goal of RASS of -4 No daily sedation vacation until emergent airway edema subsides Ofirmev 1 g IV every 8 hours as needed fever Noted allergy to morphine/pruritus CV: Sinus tachycardia Essential hypertension Currently on normal saline at 84 cc an hour As needed labetalol/Nitropaste for hypertension. Continue Catapres patch, labetalol as needed. Added amlodipine/HCTZ p.o. daily as well as hydralazine p.o. daily via OG tube on 11/29. Labetalol as needed IV. Patient to stay off lisinopril indefinitely in view of angioedema Resp: Acute respiratory failure secondary to angioedema [facility] /04/26/29 Ventilator bundle Albuterol/ipratropium aerosols every 4 hours with albuterol aerosols every 2 hours as needed for dyspnea Spontaneous breathing trials when clinically indicated Decrease methylprednisolone succinate 40 mg IV every 12 hours, diphenhydramine 25 mg every 6 hours and famotidine 20 mg IV twice daily GI: Elevated AST Hypoalbuminemia Start tube feeds and advance to goal as tolerated with Glucerna 1.5. Famotidine for GI prophylaxis Dulcolax suppository as needed constipation : Condom catheter replaced with indwelling catheter due to retained urine Endo: Acute hyperglycemia/likely steroid-induced Sliding scale insulin with Accu-Cheks with aspart insulin/low particle every 6 hours to maintain euglycemia Renal: Creatinine currently within normal limits Monitor urine output Accurate I's and O's Heme: Normocytic anemia Monitor CBC daily. Follow trends. No indication for transfusion of the breast at this time. ID: Monitor for signs and symptomatology of infection MSK: PT evaluate and treat FEN: Replace electrolytes per ICU electrolyte protocol. 2 g mag sulfate IV 1 today Access -Utilize peripheral IV. Central line if indicated Prophylaxis -GI -famotidine- DVT -SCD/Lovenox 40 units subcutaneously daily 35 minutes critical care time. Discussed with in length. Care plan discussed and all questions answered.
[2017-11-30] MEDS: Propofol 1000 mg/100 ml Inj 1,000 MG/100 ML BOTTLE IV.CONT PRN ×3 (01:15→15:45)
[2017-11-30] MEDS: Midazolam 50 MG/50 ML Inj 50 MG/50 ML BAG IV.CONT PRN ×2 (05:10→23:45)
[2017-11-30] MEDS: Chlorhexidine Gluconate 2% 1 Pack (2 Cloths) TOPICAL SCH (05:11)
[2017-11-30] MEDS: Oral Hygiene Kit OROPHARYNG SCH ×3 (05:12→18:04)
[2017-11-30] MEDS: Enoxaparin Inj 40 MG/0.4 ML Syringe SQ SCH (05:12)
[2017-11-30] MEDS: hydrALAZINE 50 MG Tablet PO SCH ×3 (05:13→23:36)
--- NOTE | 2017-11-30 05:51 | XR ---
EXAM DATE: 11/30/2017 5:30 AM EDT AGE/SEX: 57 years / Male INDICATIONS: Shortness of breath, possible pulmonary disease. CLINICAL DATA: This is the patient's subsequent encounter. Patient reports that signs and symptoms h ave been present for 1 week and indicates a pain score of Nonresponsive. MEDICAL/SURGICAL HISTORY: Non-responsive. Non-responsive. [place] [facility] [place]/2017. . FINDINGS: Portable AP view of the chest demonstrates a normal-sized cardiac silhouette. ETT remains present and nasogastric tube distal tip is within the stomach. EKG lines overlie the patient. There are bibasila r opacities with obscuration of the left hemidiaphragm. No pneumothorax is visualized. Bones and soft tissues demonstrate no acute finding. CONCLUSION: 1. New left basilar pleural-parenchymal opacity representing airspace consolidation and possible sma ll pleural effusion. 2. Stable airspace opacity at the right lung base. Electronically signed by: Inderjit Saleh MD 11/30/2017 5:49 AM EDT
[2017-11-30 06:48] LABS: Baso % (Auto) 0.2 % (0.0-2.0); Eos % (Auto) 0.2 % (0.0-4.0); Hematocrit 34.6 % (39.0-51.0); Hemoglobin 11.3 gm/dL (13.0-17.0); Lymph % (Auto) 20.1 % (9.0-44.0); Mean Corpuscular HGB Conc 32.7 % (32.0-36.0); Mean Corpuscular Hemoglobin 28.1 pg (27.0-34.0); Mean Corpuscular Volume 86.2 fL (80.0-100.0); Mean Platelet Volume 10.6 fL (7.0-11.0); Mono # (Auto) 0.4 th/mm3 (0.0-0.9); Mono % (Auto) 7.7 % (0.0-8.0); Neut # (Auto) 3.7 th/mm3 (1.8-7.7); Neut % (Auto) 71.8 % (16.0-70.0); Platelet Count 121 th/mm3 (150-450); Red Blood Count 4.02 mil/mm3 (4.50-5.90); Red Cell Distribution Width 18.7 % (11.6-17.2); White Blood Count 5.1 th/mm3 (4.0-11.0)
[2017-11-30] MEDS: Insulin NovoLOG Aspart Correctional Sugar Inj SQ SCH ×4 (07:00→20:42)
[2017-11-30 07:09] LABS: Albumin 2.4 g/dL (3.4-5.0); Anion Gap 12 meq/L (5-15); Aspartate Aminotransferase 90 U/L (15-37); Blood Urea Nitrogen 18 mg/dL (7-18); Calcium 8.3 mg/dL (8.5-10.1); Carbon Dioxide 23.5 meq/L (21.0-32.0); Chloride 105 meq/L (98-107); Glomerular Filtration Rate 64 mL/min (>89); Potassium 3.6 meq/L (3.5-5.1); Sodium 140 meq/L (136-145)
[2017-11-30 07:10] LABS: Glucose,Random 127 mg/dL (74-106)
[2017-11-30 07:16] LABS: Alanine Aminotransferase 65 U/L (12-78); Alkaline Phosphatase 59 U/L (45-117); Total Protein 6.9 g/dL (6.4-8.2)
[2017-11-30] MEDS: Senna/Docusate Sodium 8.6/50 MG Tablet PO SCH ×2 (08:41→20:44)
[2017-11-30] MEDS: MethylPREDNISolone Sod Succinate Inj 40 MG/ML Vial IV.PUSH SCH ×2 (08:41→20:34)
[2017-11-30] MEDS: Famotidine PF Inj 20 MG/2 ML Vial IV.PUSH SCH ×2 (08:41→20:40)
[2017-11-30] MEDS: amLODIPine 10 MG Tablet NG/OG SCH (08:42)
[2017-11-30] MEDS: hydroCHLOROthiazide 25 MG Tablet PO SCH (08:42)
[2017-11-30] MEDS: Chlorhexidine 0.12% Oral Kit 15 ML UDC OROPHARYNG SCH ×2 (08:43→20:42)
[2017-11-30] MEDS: Hypromellose 0.3% Opth Gel 10 GM Bottle EACH EYE SCH ×2 (08:43→23:37)
[2017-11-30 08:45] LABS: Lymphocytes 24 % (9-44); Monocytes 6 % (0-8); Platelet Morphology Normal (Normal)
[2017-11-30] MEDS ORDERED: Etomidate Inj 40 MG/20 ML Vial IV.PUSH ONE (09:25)
--- NOTE | 2017-11-30 09:54 | P.PNCC ---
Subjective Subjective Remarks/Hospital Course: 57-year-old male presents with upper and lower lip angioedema since approximately 8 PM with progressive worsening. Prior to arrival to the emergency department patient did receive a dose of Benadryl and epinephrine. Patient noticed some decrease in swelling to the left side of the upper lip but still feels like there is significant swelling to the upper and lower lip and has some tightness in his throat. Patient does have hypertension and has been prescribed lisinopril in the past but states he has not been on any blood pressure medication for at least 1 week. Patient did eat shellfish this evening. Patient does not present with a urticarial rash. No prior history of acute allergic reaction with similar type symptoms although does have a sensitivity with itching to morphine and rash and hives to penicillin. No recent antibiotic prescription or use. 11/27: Afebrile. Currently sedated on propofol and midazolam drips and placed on the ventilator due to severe angioedema.. Discussed with likely cause angioedema including possibly blood pressure medication versus iodine/ shellfish. She expressed understanding. SUBJECTIVE 11/28: Remains deeply sedated on propofol and midazolam drips. Hemodynamically stable. Adequate urine output. It appears that his mucosal/oral edema has improved. 11/29: Remains sedated, nasally intubated on mechanical ventilation. Elevated blood pressure noted. Starting oral amlodipine/HCTZ and hydralazine via OG tube. 11/30: Remains sedated, nasally intubated on mechanical ventilation. Objective Vital Signs / I&O: Vital Signs 11/29/17 11:47 11/29/17 12:00 11/29/17 16:00 Temperature 98.2 F 98 F Pulse Rate 83 83 97 H Respiratory Rate 16 16 16 Blood Pressure 167/102 H 148/66 H Pulse Oximetry 100 97 95 11/29/17 20:00 11/29/17 21:07 11/29/17 21:09 Temperature 98.2 F Pulse Rate 108 H 100 H Respiratory Rate 16 21 21 Blood Pressure 200/106 H Pulse Oximetry 96 96 11/30/17 00:00 11/30/17 00:48 11/30/17 04:00 Temperature 97.8 F 102 F H Pulse Rate 110 H 99 H 113 H Respiratory Rate 16 25 H 16 Blood Pressure 169/90 H 132/89 Pulse Oximetry 93 L 11/30/17 04:17 11/30/17 08:26 11/30/17 08:31 Temperature Pulse Rate 101 H 101 H Respiratory Rate 23 20 20 Blood Pressure Pulse Oximetry 100 95 Intake & Output 11/29/17 11/30/17 11/30/17 18:59 06:59 18:59 Intake Total 1440 / 1440 4040 / 4040 Output Total 1300 / 1300 3300 / 3300 Balance 140 / 140 740 / 740 Weight 85.3 kg Intake: IV 1350 / 1350 1350 / 1350 Versed Inj 50 mg In 50 ml @ 2 50 / 50 50 / 50 MG/HR 2 mls/hr IV.CONT TITRATE PRN Rx#:[id number] Diprivan 1000 mg/100 ml Inj 1, 300 / 300 300 / 300 000 mg In 100 ml @ 5 MCG/KG/MIN 2.517 mls/hr IV.CONT TITRATE PRN Rx#:[id number] NS Inj 1,000 ML @ 84 mls/hr IV. 1000 / 1000 1000 / 1000 CONT .[id number] COUNTS INCLUDE 234 BEDS AT THE [facility] Rx#:[id number] Oral 0 / 0 Tube Feeding 90 / 90 420 / 420 Water Bolus Amount 60 / 60 Other 2210 / 2210 Output: Urine 1700 / 1700 Stool 0 / 0 Urine/Stool Mix 0 / 0 Urine Amount (Catheter) 1300 / 1300 1600 / 1600 Indwelling Urethral Catheter 1300 / 1300 1600 / 1600 Other: # Bowel Movements 0 0 # Incontinent Bowel Movements 0 Result Diagrams: 11/30/17 04:27 11/30/17 04:22 Objective Remarks: GENERAL: 57-year-old AA male currently nasally intubated and right nares sedated on propofol midazolam drips in restraints/soft SKIN: Warm and dry. No rash HEAD: Atraumatic. Normocephalic. EYES: Pupils equal and round. No scleral icterus. No injection or drainage. ENT: No nasal bleeding or discharge. Mucous membranes pink and moist. 7.5 ET tube in right nares. NECK: Trachea midline. No JVD. Obvious swelling involving pretracheal regions. Unable to identify the lumen opens mouth. CARDIOVASCULAR: Cardiac, RRR. S1, S3 no S4. Without murmur RESPIRATORY: No accessory muscle use. Clear to auscultation. Breath sounds equal bilaterally. GASTROINTESTINAL: Abdomen soft, non-tender, nondistended. Hepatic and splenic margins not palpable. MUSCULOSKELETAL: Extremities without clubbing, cyanosis, or edema. No obvious deformities. NEUROLOGICAL: Currently sedated on propofol midazolam drips. Prior to intubation,. No obvious cranial nerve deficits. Motor grossly within normal limits. Five out of 5 muscle strength in the arms and legs. Assessment and Plan - Assessment and Plan Plan: Neuro/Psych: Currently on propofol drip at 50 mcg per kilogram per minute midazolam drip at 5 mg an hour for sedation/analgesia while intubated. Added fentanyl GTT and Ativan as needed on 11/30. Goal of RASS of -4 No daily sedation vacation until emergent airway edema subsides Ofirmev 1 g IV every 8 hours as needed fever Noted allergy to morphine/pruritus CV: Sinus tachycardia Essential hypertension Currently on normal saline at 84 cc an hour As needed labetalol/Nitropaste for hypertension. Continue Catapres patch, labetalol as needed. Added amlodipine/HCTZ p.o. daily as well as hydralazine p.o. daily via OG tube on 11/29. Labetalol as needed IV. Patient to stay off lisinopril indefinitely in view of angioedema Resp: Acute respiratory failure secondary to angioedema [facility] 16//04/26/29 Ventilator bundle Albuterol/ipratropium aerosols every 4 hours with albuterol aerosols every 2 hours as needed for dyspnea Spontaneous breathing trials when clinically indicated Decrease methylprednisolone succinate 40 mg IV every 12 hours, diphenhydramine 25 mg every 6 hours and famotidine 20 mg IV twice daily GI: Elevated AST Hypoalbuminemia Start tube feeds and advance to goal as tolerated with Glucerna 1.5. Famotidine for GI prophylaxis Dulcolax suppository as needed constipation : Condom catheter replaced with indwelling catheter due to retained urine Endo: Acute hyperglycemia/likely steroid-induced Sliding scale insulin with Accu-Cheks with aspart insulin/low particle every 6 hours to maintain euglycemia Renal: Creatinine currently within normal limits Monitor urine output Accurate I's and O's Heme: Normocytic anemia Monitor CBC daily. Follow trends. No indication for transfusion of the breast at this time. ID: Monitor for signs and symptomatology of infection MSK: PT evaluate and treat FEN: Replace electrolytes per ICU electrolyte protocol. 2 g mag sulfate IV 1 today Access -Utilize peripheral IV. Central line if indicated Prophylaxis -GI -famotidine- DVT -SCD/Lovenox 40 units subcutaneously daily 35 minutes critical care time. Discussed with in length. Care plan discussed and all questions answered.
--- NOTE | 2017-11-30 10:29 | XR ---
EXAM DATE: 11/30/2017 10:22 AM EDT AGE/SEX: 57 years / Male INDICATIONS: Status post nasal intubation. CLINICAL DATA: This is the patient's subsequent encounter. Patient reports that signs and symptoms h ave been present for 2 days and indicates a pain score of Nonresponsive. MEDICAL/SURGICAL HISTORY: Non-responsive. Non-responsive. COMPARISON: [facility], CHEST 1V SINGLE AP, 11/30/2017. . FINDINGS: A single AP view of the chest demonstrates bibasilar airspace disease. Endotracheal tube 5.5 cm above the bird. Nasogastric tube with tip in stomach The cardiomediastinal contours are unremarkable. O sseous structures are intact. CONCLUSION: Bibasilar airspace disease slightly more prominent Electronically signed by: Ady Burger MD 11/30/2017 10:28 AM EDT
--- NOTE | 2017-11-30 11:00 | P.DIET ---
Nutritional Evaluation Type of nutrition evaluation: initial Nutrition consult regarding: Tube Feeding Objective - Diagnosis Angioedema - Objective % IBW: 113 (IBW = 166#) Body Weight Used for Calculations: Actual (85.3 kg) Energy Needs - Lower Range (kCal/kg): 25 Energy Needs - Upper Range (kCal/kg): 30 Lower Limit kCal/kg (kCals): 2,133 Upper Limit kCal/kg (kCals): 2,559 Lower Limit Protein Factor (Grams per Kg): 1.0 Upper Limit Protein Factor (Grams per Kg): 1.5 Lower Protein Needs (Protein): 85 Upper Protein Needs (Protein): 128 Dietitian Reviewed in Medical Record: Curent medications, Intake & Output, Labs , Medical history, Tube feeding Diet Order: NPO Feeding - Current Tube Feeding Tube Feeding Product: Glucerna 1.5 Tube Feeding Method: Pump Tube Feeding Rate: 60 (mls/hr) Current kCals Provided by Tube Feedin,160 Current Protein Provided by Tube Feeding (gPRO): 119 Current Free H2O Provided (m/l): 1,093 Diprivan Rate: 25 (mls/hr) Lipid kCals From Diprivan: 660 Assessment Assessment: Pt is vented and sedated on propofol and needs TFing to meet needs. Agree with current order for Glucerna 1.5 @ 60 mls/hr which will provide 2160 kcals, 119 gms protein and 1093 mls of free water. Some additional kcals will be provided by propofol (1.1 kcal/ml). Recommendations: Glucerna 1.5 @ 60 mls/hr goal Dietitian to Monitor: Lab values, Intake & Output, Tube feeding tolerance, Weight change, Medical course
[2017-11-30 11:08] LABS: ABG Base Excess -0.9 mmol/L (-2-2); ABG PCO2 43 mmHg (38-42); ABG PO2 67 mmHG (61-120)
[2017-11-30] MEDS: Vancomycin Inj 1,500 MG in Sodium Chlor 0.9% Inj 500 ML IV.SIG SCH (13:18)
[2017-11-30] MEDS: SODIUM CHLORIDE NEB SCH (13:19)
[2017-11-30] MEDS: EPOPROSTENOL NEB SCH (13:19)
[2017-11-30 16:39] LABS: ABG Base Excess -3.3 mmol/L (-2-2); ABG PCO2 41 mmHg (38-42); ABG PO2 111 mmHG (61-120)
[2017-11-30] MEDS: fentaNYL 10 mcg/mL Premix Drip 2,500 MCG/250 ML BAG IV.SIG PRN (23:50)
[2017-12-01] MEDS: Propofol 1000 mg/100 ml Inj 1,000 MG/100 ML BOTTLE IV.CONT PRN (01:41)
[2017-12-01] MEDS: Vancomycin Inj 1,500 MG in Sodium Chlor 0.9% Inj 500 ML IV.SIG SCH ×2 (01:57→12:21)
[2017-12-01] MEDS: Oral Hygiene Kit OROPHARYNG SCH ×4 (02:14→16:46)
[2017-12-01] MEDS: EPOPROSTENOL NEB SCH ×3 (02:15→18:00)
[2017-12-01] MEDS: SODIUM CHLORIDE NEB SCH (02:15)
[2017-12-01] MEDS: Insulin NovoLOG Aspart Correctional Sugar Inj SQ SCH ×4 (02:23→18:50)
[2017-12-01] MEDS: Chlorhexidine Gluconate 2% 1 Pack (2 Cloths) TOPICAL SCH (05:40)
[2017-12-01] MEDS: Sod Chloride 0.9% Inj 1,000 ML IV.CONT SCH ×2 (05:48→19:14)
[2017-12-01] MEDS: Enoxaparin Inj 40 MG/0.4 ML Syringe SQ SCH (05:49)
[2017-12-01] MEDS: hydrALAZINE 50 MG Tablet PO SCH ×3 (05:50→21:20)
[2017-12-01 06:35] LABS: Baso % (Auto) 0.1 % (0.0-2.0); Hematocrit 29.7 % (39.0-51.0); Hemoglobin 9.6 gm/dL (13.0-17.0); Lymph # (Auto) 0.7 th/mm3 (1.0-4.8); Lymph % (Auto) 9.8 % (9.0-44.0); Mean Corpuscular HGB Conc 32.4 % (32.0-36.0); Mean Corpuscular Hemoglobin 28.1 pg (27.0-34.0); Mean Corpuscular Volume 86.8 fL (80.0-100.0); Mean Platelet Volume 10.8 fL (7.0-11.0); Mono # (Auto) 0.4 th/mm3 (0.0-0.9); Mono % (Auto) 5.3 % (0.0-8.0); Neut # (Auto) 6.1 th/mm3 (1.8-7.7); Neut % (Auto) 84.8 % (16.0-70.0); Platelet Count 100 th/mm3 (150-450); Red Blood Count 3.42 mil/mm3 (4.50-5.90); Red Cell Distribution Width 18.3 % (11.6-17.2); White Blood Count 7.1 th/mm3 (4.0-11.0)
[2017-12-01] MEDS: amLODIPine 10 MG Tablet NG/OG SCH (08:00)
[2017-12-01] MEDS: Chlorhexidine 0.12% Oral Kit 15 ML UDC OROPHARYNG SCH (08:00)
[2017-12-01] MEDS: hydroCHLOROthiazide 25 MG Tablet PO SCH (08:00)
[2017-12-01] MEDS: MethylPREDNISolone Sod Succinate Inj 40 MG/ML Vial IV.PUSH SCH ×2 (08:00→21:18)
[2017-12-01] MEDS: Famotidine PF Inj 20 MG/2 ML Vial IV.PUSH SCH ×2 (08:12→21:19)
[2017-12-01 08:24] LABS: Lymphocytes 13 % (9-44); Monocytes 5 % (0-8)
[2017-12-01 08:25] LABS: Platelet Morphology Normal (Normal); Toxic Vacuolation Present
[2017-12-01 08:36] LABS: ABG Base Excess -1.3 mmol/L (-2-2); ABG PCO2 43 mmHg (38-42); ABG PO2 150 mmHg (61-120)
--- NOTE | 2017-12-01 09:22 | XR ---
EXAM DATE: 12/01/2017 9:11 AM EDT AGE/SEX: 57 years / Male INDICATIONS: Respiratory failure. CLINICAL DATA: This is the patient's subsequent encounter. Patient reports that signs and symptoms h ave been present for 2 days and indicates a pain score of Nonresponsive. MEDICAL/SURGICAL HISTORY: Non-responsive. Non-responsive. COMPARISON: [facility] [place] 1V SINGLE AP, 11/30/2017. . FINDINGS: A single AP view of the chest demonstrates bibasilar densities greater left lower lobe. Endotracheal tube and nasogastric tube unchanged.. The cardiomediastinal contours are unremarkable. Osseous stru ctures are intact. CONCLUSION: Persistent bibasilar densities slightly worsened in the left lower lobe. Electronically signed by: Ady Burger MD 12/01/2017 9:21 AM EDT
[2017-12-01 09:28] LABS: Baso % (Auto) 0.2 % (0.0-2.0); Hematocrit 29.4 % (39.0-51.0); Hemoglobin 9.5 gm/dL (13.0-17.0); Lymph # (Auto) 0.7 th/mm3 (1.0-4.8); Lymph % (Auto) 9.9 % (9.0-44.0); Mean Corpuscular HGB Conc 32.3 % (32.0-36.0); Mean Corpuscular Hemoglobin 28.1 pg (27.0-34.0); Mean Corpuscular Volume 87.1 fL (80.0-100.0); Mean Platelet Volume 10.9 fL (7.0-11.0); Mono # (Auto) 0.5 th/mm3 (0.0-0.9); Mono % (Auto) 6.9 % (0.0-8.0); Platelet Count 110 th/mm3 (150-450); Red Blood Count 3.38 mil/mm3 (4.50-5.90); Red Cell Distribution Width 18.2 % (11.6-17.2); White Blood Count 7.2 th/mm3 (4.0-11.0)
[2017-12-01 10:03] LABS: Alanine Aminotransferase 60 U/L (12-78); Albumin 1.9 g/dL (3.4-5.0); Alkaline Phosphatase 60 U/L (45-117); Anion Gap 9 meq/L (5-15); Aspartate Aminotransferase 64 U/L (15-37); Blood Urea Nitrogen 33 mg/dL (7-18); Calcium 8.5 mg/dL (8.5-10.1); Carbon Dioxide 23.3 meq/L (21.0-32.0); Chloride 108 meq/L (98-107); Glomerular Filtration Rate 58 mL/min (>89); Glucose,Random 168 mg/dL (74-106); Potassium 4.5 meq/L (3.5-5.1); Sodium 140 meq/L (136-145); Total Protein 6.6 g/dL (6.4-8.2)
[2017-12-01] MEDS: Hypromellose 0.3% Opth Gel 10 GM Bottle EACH EYE SCH ×2 (11:11→21:19)
[2017-12-01] MEDS: Senna/Docusate Sodium 8.6/50 MG Tablet PO SCH ×2 (11:12→21:20)
--- NOTE | 2017-12-01 14:31 | P.PNCC ---
Subjective Subjective Remarks/Hospital Course: 57-year-old male presents with upper and lower lip angioedema since approximately 8 PM with progressive worsening. Prior to arrival to the emergency department patient did receive a dose of Benadryl and epinephrine. Patient noticed some decrease in swelling to the left side of the upper lip but still feels like there is significant swelling to the upper and lower lip and has some tightness in his throat. Patient does have hypertension and has been prescribed lisinopril in the past but states he has not been on any blood pressure medication for at least 1 week. Patient did eat shellfish this evening. Patient does not present with a urticarial rash. No prior history of acute allergic reaction with similar type symptoms although does have a sensitivity with itching to morphine and rash and hives to penicillin. No recent antibiotic prescription or use. 11/27: Afebrile. Currently sedated on propofol and midazolam drips and placed on the ventilator due to severe angioedema.. Discussed with likely cause angioedema including possibly blood pressure medication versus iodine/ shellfish. She expressed understanding. SUBJECTIVE 11/28: Remains deeply sedated on propofol and midazolam drips. Hemodynamically stable. Adequate urine output. It appears that his mucosal/oral edema has improved. 11/29: Remains sedated, nasally intubated on mechanical ventilation. Elevated blood pressure noted. Starting oral amlodipine/HCTZ and hydralazine via OG tube. 11/30: Remains sedated, nasally intubated on mechanical ventilation. 12/01: Remains sedated, nasally intubated on mechanical ventilation. Worsening respiratory status since yesterday for which patient was placed on inhaled Flolan nebulizer treatments. He did have fevers pancultures were sent yesterday and patient was started on empiric Levaquin and vancomycin IV. Sputum growing staph. On P +15 and inhaled Flolan currently. FiO2 down to 40%. Objective Vital Signs / I&O: Vital Signs 11/30/17 14:30 11/30/17 14:45 11/30/17 15:00 Temperature Pulse Rate 93 H 92 H 92 H Respiratory Rate 16 16 16 Blood Pressure 89/55 L 91/55 L 90/56 L Pulse Oximetry 100 100 100 11/30/17 15:15 11/30/17 15:30 11/30/17 15:45 Temperature Pulse Rate 92 H 92 H 92 H Respiratory Rate 16 16 16 Blood Pressure 88/57 L 89/57 L 101/59 L Pulse Oximetry 100 100 100 11/30/17 16:00 11/30/17 16:15 11/30/17 16:17 Temperature 99.3 F Pulse Rate 93 H 92 H Respiratory Rate 16 16 16 Blood Pressure 100/64 101/64 Pulse Oximetry 100 100 100 11/30/17 16:19 11/30/17 16:30 11/30/17 16:45 Temperature Pulse Rate 92 H 92 H 91 H Respiratory Rate 16 16 16 Blood Pressure 106/63 96/59 L Pulse Oximetry 100 100 11/30/17 17:00 11/30/17 17:15 11/30/17 17:30 Temperature Pulse Rate 91 H 90 90 Respiratory Rate 16 16 16 Blood Pressure 95/60 L 97/63 L 96/64 L Pulse Oximetry 100 100 100 11/30/17 18:00 11/30/17 18:30 11/30/17 19:00 Temperature Pulse Rate 87 89 88 Respiratory Rate 16 16 16 Blood Pressure 96/61 L 95/61 L 94/62 L Pulse Oximetry 100 100 100 11/30/17 19:30 11/30/17 20:00 11/30/17 20:20 Temperature 98.8 F Pulse Rate 88 87 87 Respiratory Rate 16 16 16 Blood Pressure 93/64 L 96/64 L Pulse Oximetry 100 100 100 11/30/17 20:30 11/30/17 21:00 11/30/17 21:30 Temperature Pulse Rate 87 88 87 Respiratory Rate 16 16 16 Blood Pressure 106/69 100/66 101/67 Pulse Oximetry 100 100 100 11/30/17 22:00 11/30/17 22:30 11/30/17 23:00 Temperature Pulse Rate 86 86 91 H Respiratory Rate 16 16 16 Blood Pressure 105/68 124/76 127/77 Pulse Oximetry 100 100 100 11/30/17 23:03 11/30/17 23:30 12/01/17 00:00 Temperature 99.5 F Pulse Rate 91 H 91 H Respiratory Rate 16 16 Blood Pressure 124/79 127/81 Pulse Oximetry 100 100 12/01/17 00:30 12/01/17 01:00 12/01/17 01:30 Temperature Pulse Rate 87 89 88 Respiratory Rate 16 16 16 Blood Pressure 122/79 125/80 123/82 Pulse Oximetry 100 100 100 12/01/17 02:00 12/01/17 02:30 12/01/17 03:00 Temperature 98.5 F Pulse Rate 88 87 86 Respiratory Rate 16 16 16 Blood Pressure 124/81 132/86 131/83 Pulse Oximetry 100 100 100 12/01/17 03:30 12/01/17 04:00 12/01/17 04:17 Temperature Pulse Rate 86 86 93 H Respiratory Rate 16 16 16 Blood Pressure 131/82 136/86 Pulse Oximetry 100 100 100 12/01/17 04:30 12/01/17 05:00 12/01/17 05:30 Temperature Pulse Rate 92 H 91 H 89 Respiratory Rate 16 16 16 Blood Pressure 125/78 125/78 133/80 Pulse Oximetry 100 100 100 12/01/17 06:00 12/01/17 06:30 12/01/17 07:00 Temperature Pulse Rate 89 90 87 Respiratory Rate 18 18 17 Blood Pressure 131/82 121/76 123/79 Pulse Oximetry 100 100 100 12/01/17 07:30 12/01/17 07:59 12/01/17 08:00 Temperature Pulse Rate 87 87 87 Respiratory Rate 16 16 Blood Pressure 124/77 123/75 Pulse Oximetry 100 100 12/01/17 08:30 12/01/17 09:00 12/01/17 09:07 Temperature Pulse Rate 92 H 90 Respiratory Rate 16 16 16 Blood Pressure 136/83 131/83 Pulse Oximetry 100 100 100 12/01/17 12:26 Temperature Pulse Rate Respiratory Rate 16 Blood Pressure Pulse Oximetry 100 Intake & Output 11/30/17 12/01/17 12/01/17 18:59 06:59 18:59 Intake Total 2241 / 2241 1116 / 1116 Output Total 600 / 600 1175 / 1175 Balance 1641 / 1641 -59 / -59 Weight 59.1 kg Intake: IV 1765 / 1765 765 / 765 Versed Inj 50 mg In 50 ml @ 2 50 / 50 MG/HR 2 mls/hr IV.CONT TITRATE PRN Rx#:[id number] Diprivan 1000 mg/100 ml Inj 1, 100 / 100 100 / 100 000 mg In 100 ml @ 5 MCG/KG/MIN 2.517 mls/hr IV.CONT TITRATE PRN Rx#:[id number] NS Inj 1,000 ML @ 84 mls/hr IV. 1000 / 1000 CONT .[id number] [facility] Rx#:[id number] Levaquin 750 mg Premix Inj 150 150 / 150 ML @ 100 mls/hr IV.SIG Q24H [facility] Rx#:[id number] Vancomycin Inj 1,500 MG In NS 515 / 515 515 / 515 Inj 500 ML @ 250 mls/hr IV.SIG Q12H [facility] Rx#:[id number] Flolan (30,000 ng/mL) Neb 35 ML 100 / 100 In NS Inj 65 ML @ 8 mls/hr NEB Q8H [facility] Rx#:[id number] Tube Feeding 376 / 376 321 / 321 Tube Irrigant 30 / 30 Water Bolus Amount 100 / 100 Output: Urine Amount (Catheter) 600 / 600 1175 / 1175 Indwelling Urethral Catheter 600 / 600 1175 / 1175 Other: Date of Last Bowel Movement 12/01/17 Result Diagrams: 12/01/17 08:30 12/01/17 08:30 Imaging: Chest X-Ray 11/27/17 02:02 CONCLUSION: Clear lungs. Chest X-Ray 11/27/17 07:20 CONCLUSION: No acute infiltrate or effusion. Chest X-Ray 11/28/17 06:00 CONCLUSION: Clear lungs. Chest X-Ray 11/29/17 06:00 CONCLUSION: New opacity at the right lung base representing either volume loss or airspace consolidation. Chest X-Ray 11/30/17 00:00 CONCLUSION: Bibasilar airspace disease slightly more prominent Chest X-Ray 11/30/17 05:00 CONCLUSION: 1. New left basilar pleural-parenchymal opacity representing airspace consolidation and possible small pleural effusion. 2. Stable airspace opacity at the right lung base. Chest X-Ray 12/01/17 00:00 CONCLUSION: Persistent bibasilar densities slightly worsened in the left lower lobe. Objective Remarks: GENERAL: 57-year-old AA male currently nasally intubated and right nares sedated on propofol midazolam drips in restraints/soft SKIN: Warm and dry. No rash HEAD: Atraumatic. Normocephalic. EYES: Pupils equal and round. No scleral icterus. No injection or drainage. ENT: No nasal bleeding or discharge. Mucous membranes pink and moist. 7.5 ET tube in right nares. NECK: Trachea midline. No JVD. Obvious swelling involving pretracheal regions. Unable to identify the lumen opens mouth. CARDIOVASCULAR: Cardiac, RRR. S1, S3 no S4. Without murmur RESPIRATORY: No accessory muscle use. Clear to auscultation. Breath sounds equal bilaterally. GASTROINTESTINAL: Abdomen soft, non-tender, nondistended. Hepatic and splenic margins not palpable. MUSCULOSKELETAL: Extremities without clubbing, cyanosis, or edema. No obvious deformities. NEUROLOGICAL: Currently sedated, nasally intubated. Prior to intubation,. No obvious cranial nerve deficits. Motor grossly within normal limits. Five out of 5 muscle strength in the arms and legs. Assessment and Plan - Assessment and Plan Plan: Neuro/Psych: Currently on propofol drip at 50 mcg per kilogram per minute midazolam drip at 5 mg an hour for sedation/analgesia while intubated. Added fentanyl GTT and Ativan as needed on 11/30. Goal of RASS of -4 No daily sedation vacation until emergent airway edema subsides Ofirmev 1 g IV every 8 hours as needed fever Noted allergy to morphine/pruritus CV: Sinus tachycardia Essential hypertension Currently on normal saline at 84 cc an hour As needed labetalol/Nitropaste for hypertension. Continue Catapres patch, labetalol as needed. Added amlodipine/HCTZ p.o. daily as well as hydralazine p.o. daily via OG tube on 11/29. Labetalol as needed IV. Patient to stay off lisinopril indefinitely in view of angioedema Resp: Acute respiratory failure secondary to angioedema [facility] 16/550/15/50 Ventilator bundle Albuterol/ipratropium aerosols every 4 hours with albuterol aerosols every 2 hours as needed for dyspnea On inhaled Flolan methylprednisolone succinate 40 mg IV every 12 hours, diphenhydramine 25 mg every 6 hours and famotidine 20 mg IV twice daily GI: Elevated AST Hypoalbuminemia Start tube feeds and advance to goal as tolerated with Glucerna 1.5. Famotidine for GI prophylaxis Dulcolax suppository as needed constipation : Condom catheter replaced with indwelling catheter due to retained urine Endo: Acute hyperglycemia/likely steroid-induced Sliding scale insulin with Accu-Cheks with aspart insulin/low particle every 6 hours to maintain euglycemia Renal: Creatinine currently within normal limits Monitor urine output Accurate I's and O's Heme: Normocytic anemia Monitor CBC daily. Follow trends. No indication for transfusion of the breast at this time. ID: Sepsis/pneumonia/ARDS Pancultures sent on 11/30 for fevers and worsening respiratory status. Sputum growing staph. On vancomycin and Levaquin IV. ID consult requested. MSK: PT evaluate and treat. FEN: Replace electrolytes per ICU electrolyte protocol. 2 g mag sulfate IV 1 today Access -Utilize peripheral IV. Central line if indicated Prophylaxis -GI -famotidine- DVT -SCD/Lovenox 40 units subcutaneously daily 35 minutes critical care time. Discussed with in length. Care plan discussed and all questions answered.
[2017-12-01] MEDS: SODIUM CHLOR NEB SCH ×2 (15:00→18:00)
[2017-12-01] MEDS: fentaNYL 10 mcg/mL Premix Drip 2,500 MCG/250 ML BAG IV.SIG PRN (21:38)
[2017-12-01] MEDS ORDERED: SODIUM CHLOR NEB SCH (23:00)
[2017-12-01] MEDS ORDERED: EPOPROSTENOL NEB SCH (23:00)
[2017-12-02] MEDS: Midazolam 50 MG/50 ML Inj 50 MG/50 ML BAG IV.CONT PRN ×2 (00:07→22:12)
[2017-12-02] MEDS: Vancomycin Inj 1,500 MG in Sodium Chlor 0.9% Inj 500 ML IV.SIG SCH (00:11)
[2017-12-02] MEDS: EPOPROSTENOL NEB SCH (00:13)
[2017-12-02] MEDS: SODIUM CHLOR NEB SCH (00:13)
[2017-12-02] MEDS: Chlorhexidine 0.12% Oral Kit 15 ML UDC OROPHARYNG SCH ×3 (00:14→20:38)
[2017-12-02] MEDS: Oral Hygiene Kit OROPHARYNG SCH ×3 (00:15→16:16)
[2017-12-02] MEDS: Propofol 1000 mg/100 ml Inj 1,000 MG/100 ML BOTTLE IV.CONT PRN ×4 (00:15→20:11)
[2017-12-02] MEDS: Insulin NovoLOG Aspart Correctional Sugar Inj SQ SCH ×3 (00:39→18:29)
[2017-12-02] MEDS: Labetalol HCl Inj 100 MG/20 ML Vial IV.PUSH PRN ×7 (02:12→23:18)
[2017-12-02] MEDS: Sod Chloride 0.9% Inj 1,000 ML IV.CONT SCH ×2 (04:14→18:00)
[2017-12-02] MEDS: Enoxaparin Inj 40 MG/0.4 ML Syringe SQ SCH (05:48)
[2017-12-02] MEDS: hydrALAZINE 50 MG Tablet PO SCH ×3 (05:50→21:54)
[2017-12-02 07:16] LABS: Baso # (Auto) 0.1 th/mm3 (0.0-0.2); Baso % (Auto) 0.8 % (0.0-2.0); Hematocrit 28.6 % (39.0-51.0); Hemoglobin 9.3 gm/dL (13.0-17.0); Lymph # (Auto) 0.8 th/mm3 (1.0-4.8); Lymph % (Auto) 9.5 % (9.0-44.0); Mean Corpuscular HGB Conc 32.7 % (32.0-36.0); Mean Corpuscular Hemoglobin 27.9 pg (27.0-34.0); Mean Corpuscular Volume 85.2 fL (80.0-100.0); Mean Platelet Volume 11.1 fL (7.0-11.0); Mono # (Auto) 0.5 th/mm3 (0.0-0.9); Mono % (Auto) 6.4 % (0.0-8.0); Neut # (Auto) 6.8 th/mm3 (1.8-7.7); Neut % (Auto) 83.3 % (16.0-70.0); Platelet Count 131 th/mm3 (150-450); Red Blood Count 3.35 mil/mm3 (4.50-5.90); Red Cell Distribution Width 17.8 % (11.6-17.2); White Blood Count 8.1 th/mm3 (4.0-11.0)
--- NOTE | 2017-12-02 08:36 | P.PNCC ---
Subjective Subjective Remarks/Hospital Course: 57-year-old male presents with upper and lower lip angioedema since approximately 8 PM with progressive worsening. Prior to arrival to the emergency department patient did receive a dose of Benadryl and epinephrine. Patient noticed some decrease in swelling to the left side of the upper lip but still feels like there is significant swelling to the upper and lower lip and has some tightness in his throat. Patient does have hypertension and has been prescribed lisinopril in the past but states he has not been on any blood pressure medication for at least 1 week. Patient did eat shellfish this evening. Patient does not present with a urticarial rash. No prior history of acute allergic reaction with similar type symptoms although does have a sensitivity with itching to morphine and rash and hives to penicillin. No recent antibiotic prescription or use. 11/27: Afebrile. Currently sedated on propofol and midazolam drips and placed on the ventilator due to severe angioedema.. Discussed with likely cause angioedema including possibly blood pressure medication versus iodine/ shellfish. She expressed understanding. SUBJECTIVE 11/28: Remains deeply sedated on propofol and midazolam drips. Hemodynamically stable. Adequate urine output. It appears that his mucosal/oral edema has improved. 11/29: Remains sedated, nasally intubated on mechanical ventilation. Elevated blood pressure noted. Starting oral amlodipine/HCTZ and hydralazine via OG tube. 11/30: Remains sedated, nasally intubated on mechanical ventilation. 12/01: Remains sedated, nasally intubated on mechanical ventilation. Worsening respiratory status since yesterday for which patient was placed on inhaled Flolan nebulizer treatments. He did have fevers pancultures were sent yesterday and patient was started on empiric Levaquin and vancomycin IV. Sputum growing staph. On P +15 and inhaled Flolan currently. FiO2 down to 40%. 12/02: Remains sedated, nasally intubated on mechanical ventilation. Flolan being titrated down. PEEP decreased to +12. FiO2 35%. Objective Vital Signs / I&O: Vital Signs 12/01/17 09:00 12/01/17 09:07 12/01/17 09:30 Temperature Pulse Rate 90 88 Respiratory Rate 16 16 16 Blood Pressure 131/83 142/88 H Pulse Oximetry 100 100 100 12/01/17 10:00 12/01/17 10:30 12/01/17 11:00 Temperature Pulse Rate 86 85 86 Respiratory Rate 16 16 16 Blood Pressure 135/86 137/85 137/86 Pulse Oximetry 100 100 100 12/01/17 11:30 12/01/17 12:00 12/01/17 12:26 Temperature Pulse Rate 86 84 Respiratory Rate 16 16 16 Blood Pressure 128/79 131/82 Pulse Oximetry 100 100 100 12/01/17 12:30 12/01/17 13:00 12/01/17 13:30 Temperature Pulse Rate 82 84 84 Respiratory Rate 16 16 16 Blood Pressure 143/89 H 141/87 H 132/83 Pulse Oximetry 100 100 100 12/01/17 14:00 12/01/17 14:30 12/01/17 15:00 Temperature Pulse Rate 81 80 80 Respiratory Rate 16 16 16 Blood Pressure 138/85 142/86 H 134/84 Pulse Oximetry 100 100 100 12/01/17 15:30 12/01/17 15:48 12/01/17 16:00 Temperature Pulse Rate 79 79 Respiratory Rate 16 16 16 Blood Pressure 137/86 146/91 H Pulse Oximetry 100 100 100 12/01/17 16:30 12/01/17 17:00 12/01/17 17:30 Temperature Pulse Rate 80 80 80 Respiratory Rate 16 16 16 Blood Pressure 141/87 H 141/88 H 145/88 H Pulse Oximetry 100 100 100 12/01/17 18:00 12/01/17 18:30 12/01/17 19:00 Temperature Pulse Rate 79 79 78 Respiratory Rate 16 16 16 Blood Pressure 141/89 H 144/90 H 149/89 H Pulse Oximetry 100 100 100 12/01/17 19:30 12/01/17 20:00 12/01/17 20:30 Temperature Pulse Rate 79 79 79 Respiratory Rate 16 16 16 Blood Pressure 150/92 H 152/94 H 152/94 H Pulse Oximetry 100 100 100 12/01/17 20:36 12/01/17 21:00 12/01/17 21:30 Temperature Pulse Rate 76 89 Respiratory Rate 16 16 24 Blood Pressure 156/93 H 136/113 H Pulse Oximetry 100 100 100 12/01/17 21:43 12/01/17 22:00 12/01/17 22:30 Temperature 99 F Pulse Rate 78 77 Respiratory Rate 16 16 Blood Pressure 146/93 H 154/95 H Pulse Oximetry 100 100 12/01/17 23:00 12/01/17 23:30 12/02/17 00:00 Temperature Pulse Rate 77 76 76 Respiratory Rate 16 16 16 Blood Pressure 154/96 H 161/98 H 161/98 H Pulse Oximetry 100 100 100 12/02/17 00:30 12/02/17 01:00 12/02/17 01:30 Temperature Pulse Rate 76 74 73 Respiratory Rate 16 16 16 Blood Pressure 152/93 H 167/100 H 166/100 H Pulse Oximetry 100 100 100 12/02/17 01:34 12/02/17 02:00 12/02/17 02:30 Temperature Pulse Rate 74 75 Respiratory Rate 17 16 16 Blood Pressure 170/103 H 175/104 H Pulse Oximetry 100 100 100 12/02/17 03:00 12/02/17 03:30 12/02/17 03:32 Temperature Pulse Rate 75 74 74 Respiratory Rate 16 16 16 Blood Pressure 167/99 H 177/105 H 177/105 H Pulse Oximetry 100 100 100 12/02/17 03:41 12/02/17 03:45 12/02/17 03:52 Temperature Pulse Rate 74 74 74 Respiratory Rate 16 16 16 Blood Pressure 177/104 H 178/105 H 177/107 H Pulse Oximetry 100 100 100 12/02/17 04:00 12/02/17 04:09 12/02/17 04:15 Temperature 99 F Pulse Rate 73 74 Respiratory Rate 16 16 15 Blood Pressure 179/106 H 180/111 H Pulse Oximetry 100 100 100 12/02/17 04:24 12/02/17 04:30 12/02/17 08:04 Temperature Pulse Rate 78 75 Respiratory Rate 16 16 16 Blood Pressure 170/101 H 170/107 H Pulse Oximetry 100 100 100 Intake & Output 12/01/17 12/02/17 12/02/17 18:59 06:59 18:59 Intake Total 715 / 715 3075 / 3075 100 / 100 Output Total 2250 / 2250 Balance 715 / 715 825 / 825 100 / 100 Weight 88.4 kg Intake: IV 615 / 615 3015 / 3015 100 / 100 Versed Inj 50 mg In 50 ml @ 2 50 / 50 MG/HR 2 mls/hr IV.CONT TITRATE PRN Rx#:[id number] Diprivan 1000 mg/100 ml Inj 1, 100 / 100 100 / 100 000 mg In 100 ml @ 5 MCG/KG/MIN 2.517 mls/hr IV.CONT TITRATE PRN Rx#:[id number] NS Inj 1,000 ML @ 84 mls/hr IV. 1999 CONT .[id number] [facility] Rx#:[id number] Vancomycin Inj 1,500 MG In NS 515 / 515 515 / 515 Inj 500 ML @ 250 mls/hr IV.SIG Q12H [facility] Rx#:[id number] fentaNYL 10 mcg/mL Premix Drip 250 / 250 2,500 mcg In 250 ml @ 50 MCG/HR 5 mls/hr IV.SIG TITRATE PRN Rx #:[id number] Flolan (30,000 ng/mL) Neb 17.5 100 / 100 100 / 100 ML In NS Inj 82.5 ML @ 8 mls/hr NEB Q8H [facility] Rx#:[id number] Tube Feeding 0 / 0 60 / 60 Water Bolus Amount 100 / 100 Output: Urine Amount (Catheter) 2250 / 2250 Indwelling Urethral Catheter 2250 / 2250 Other: Date of Last Bowel Movement 11/30/17 Result Diagrams: 12/02/17 05:09 12/01/17 08:30 Objective Remarks: GENERAL: 57-year-old AA male currently nasally intubated and right nares sedated on propofol midazolam drips in restraints/soft SKIN: Warm and dry. No rash HEAD: Atraumatic. Normocephalic. EYES: Pupils equal and round. No scleral icterus. No injection or drainage. ENT: No nasal bleeding or discharge. Mucous membranes pink and moist. 7.5 ET tube in right nares. NECK: Trachea midline. No JVD. Obvious swelling involving pretracheal regions. Unable to identify the lumen opens mouth. CARDIOVASCULAR: Cardiac, RRR. S1, S3 no S4. Without murmur RESPIRATORY: No accessory muscle use. Clear to auscultation. Breath sounds equal bilaterally. GASTROINTESTINAL: Abdomen soft, non-tender, nondistended. Hepatic and splenic margins not palpable. MUSCULOSKELETAL: Extremities without clubbing, cyanosis, or edema. No obvious deformities. NEUROLOGICAL: Currently sedated, nasally intubated. Prior to intubation,. No obvious cranial nerve deficits. Motor grossly within normal limits. Five out of 5 muscle strength in the arms and legs. Assessment and Plan - Assessment and Plan Plan: Neuro/Psych: Currently on propofol drip at 50 mcg per kilogram per minute midazolam drip at 5 mg an hour for sedation/analgesia while intubated. Added fentanyl GTT and Ativan as needed on 11/30. Goal of RASS of -4 No daily sedation vacation until emergent airway edema subsides Ofirmev 1 g IV every 8 hours as needed fever Noted allergy to morphine/pruritus CV: Sinus tachycardia Essential hypertension Currently on normal saline at 84 cc an hour As needed labetalol/Nitropaste for hypertension. Continue Catapres patch, labetalol as needed. Added amlodipine/HCTZ p.o. daily as well as hydralazine p.o. daily via OG tube on 11/29. Labetalol as needed IV. Patient to stay off lisinopril indefinitely in view of angioedema Resp: Acute respiratory failure secondary to angioedema [facility] 16/550/15/50 Ventilator bundle Albuterol/ipratropium aerosols every 4 hours with albuterol aerosols every 2 hours as needed for dyspnea On inhaled Flolan methylprednisolone succinate 40 mg IV every 12 hours, diphenhydramine 25 mg every 6 hours and famotidine 20 mg IV twice daily GI: Elevated AST Hypoalbuminemia Start tube feeds and advance to goal as tolerated with Glucerna 1.5. Famotidine for GI prophylaxis Dulcolax suppository as needed constipation : Condom catheter replaced with indwelling catheter due to retained urine Endo: Acute hyperglycemia/likely steroid-induced Sliding scale insulin with Accu-Cheks with aspart insulin/low particle every 6 hours to maintain euglycemia Renal: Creatinine currently within normal limits Monitor urine output Accurate I's and O's Heme: Normocytic anemia Monitor CBC daily. Follow trends. No indication for transfusion of the breast at this time. ID: Sepsis/pneumonia/ARDS Pancultures sent on 11/30 for fevers and worsening respiratory status. Sputum growing staph. On vancomycin and Levaquin IV. ID consult requested. MSK: PT evaluate and treat. FEN: Replace electrolytes per ICU electrolyte protocol. Access -Utilize peripheral IV. Central line if indicated Prophylaxis -GI -famotidine- DVT -SCD/Lovenox 40 units subcutaneously daily 35 minutes critical care time.
[2017-12-02] MEDS: Hypromellose 0.3% Opth Gel 10 GM Bottle EACH EYE SCH ×2 (09:32→20:38)
[2017-12-02] MEDS: MethylPREDNISolone Sod Succinate Inj 40 MG/ML Vial IV.PUSH SCH ×2 (09:40→20:38)
[2017-12-02] MEDS: amLODIPine 10 MG Tablet NG/OG SCH (09:40)
[2017-12-02] MEDS: Senna/Docusate Sodium 8.6/50 MG Tablet PO SCH ×2 (09:40→20:37)
[2017-12-02] MEDS: hydroCHLOROthiazide 25 MG Tablet PO SCH (09:40)
[2017-12-02] MEDS: Famotidine PF Inj 20 MG/2 ML Vial IV.PUSH SCH ×2 (09:40→20:38)
--- NOTE | 2017-12-02 10:00 | P.CONID ---
History of Present Illness Service: Infectious Disease Consult date: 12/02/17 Requesting Physician: Tree White Reason for Consult: Evaluation and Mment of Sepsis, Pneumonia. Primary Care Provider: No Primary Care Physician Chief Complaint: Difficulty breathing, lip tongue swelling History of Present Illness: Mr. Flores is a 57-year-old -[place] male with past medical history significant for hypertension. Per review of records it appears that patient had significant swelling of upper and lower lip which was progressively getting worse associated with some tightness in his throat. Of note patient is on lisinopril at home. Prior to arrival to the emergency department patient received a dose of Benadryl and epinephrine. Patient reportedly was off his lisinopril for approximately 1 week prior to admission. Per review of records it appears that patient ate some shellfish the evening of admission. Patient did not have any urticarial rash at the time of presentation. Patient also has a history of allergy to penicillin reported as hives. No recent antibiotic use. Patient was administered IV Solu-Medrol,, Benadryl, IM epinephrine as well as albuterol inhalation. Despite the above regimen in the ED patient continued to complain of throat irritation and swelling and was found to have mild stridor on admission and therefore was nasally intubated in the emergency department. ICU course: Patient appears to have improved in terms of his lip as well as tongue swelling. At the present time patient remains in the ICU intubated on the ventilator but not on any pressors. He has good urine output. Patient was started on empiric regimen for pneumonia due to concern for sepsis. Infectious diseases consulted for the same. Review of Systems unobtainable due to endotracheal tube PMFSH - History History Provided By: Medical Record - Medical / Surgical Hx Neg / Unobtainable Medical Problems Denied: Yes (limted due to patient being intubated.) - Medical History Medical History: Medical History (Last Reviewed 11/27/17 @ 06:47 by Jennifer Warner) Cervical vertebral fusion HTN (hypertension) - Tobacco History Second Hand Smoke Exposure: No Tobacco Use In Past 30 Days: No Smoking Status: Never smoker - Alcohol History How Often Do You Have a Drink Containing Alcohol: 2 to 3 times a week - Substance Use History Substance History: Past History - Travel History History of Recent Travel: No Recent Travel in the [place] Within the Last 8 Weeks: No Recent Travel Out of the Country Within the Last 8 Weeks: No - Immunization History Tetanus Immunization: Unsure Hx Influenza Vaccine This Season: No Medications and Allergies Active Medications: Active Medications Acetaminophen (Tylenol Liq) 650 mg NG/OG Q6H PRN PRN Reason: FOR TEMP >101 Last Admin: 11/30/17 15:54 Dose: 650 mg Al Hydroxide/Mg Hydroxide (Milk Of Magnesia Liq) 30 ml PO Q12H PRN PRN Reason: Mild Constipation Albuterol (Albuterol Neb (Prn)) 2.5 mg NEB Q2HR NEB PRN PRN Reason: DYSPNEA Amlodipine Besylate (Norvasc) 10 mg NG/OG DAILY [facility] Last Admin: 12/02/17 09:40 Dose: 10 mg Artificial Tears (Genteal Severe Dry Eye Relief 0.3% Opth Gel) 1 drops EACH EYE BID [facility] Last Admin: 12/02/17 09:32 Dose: 1 drops Bisacodyl (Dulcolax Supp) 10 mg RECTAL DAILY PRN PRN Reason: SEVERE CONSITIPATION Chlorhexidine Gluconate (Peridex 0.12% Oral Kit) 15 ml OROPHARYNG BID@0800, 2000 [facility] Last Admin: 12/02/17 09:40 Dose: 15 ml Dextrose (D50w Vial) 50 ml IV.PUSH UNSCH PRN PRN Reason: PER HYPOGLYCEMIA PROTOCOL Diphenhydramine HCl (Benadryl Inj) 25 mg IV.PUSH Q6H [facility] Last Admin: 12/02/17 05:49 Dose: 25 mg Enoxaparin Sodium (Lovenox Inj) 40 mg SQ Q24H [facility] Last Admin: 12/02/17 05:48 Dose: 40 mg Famotidine (Pepcid Pf Inj) 20 mg IV.PUSH Q12HR [facility] Last Admin: 12/02/17 09:40 Dose: 20 mg Glucagon (Glucagon Inj) 1 mg OTHER PRN PRN PRN Reason: for Hypoglycemia Protocol Hydralazine HCl (Apresoline) 50 mg PO Q8HR [facility] Last Admin: 12/02/17 05:50 Dose: 50 mg Hydrochlorothiazide (Hydrodiuril) 25 mg PO DAILY [facility] Last Admin: 12/02/17 09:40 Dose: 25 mg Sodium Chloride (Ns Inj) 1,000 mls @ 84 mls/hr IV.CONT .[id number] [facility] Last Infusion: 12/02/17 04:16 Dose: 84 mls/hr Magnesium Sulfate Inj 4 gm/ (Sodium Chloride) 100 mls @ 50 mls/hr IV.SIG UNSCH PRN PRN Reason: For Magnesium 0.9 - 1.1 mg/dL Magnesium Sulfate Inj 2 gm/ (Sodium Chloride) 100 mls @ 50 mls/hr IV.SIG UNSCH PRN PRN Reason: For Magnesium 1.2 - 1.6 mg/dL Potassium Chloride (Kcl 40 Meq Premix Inj) 40 meq in 100 mls @ 25 mls/hr IV.SIG Q2H PRN PRN Reason: For Potassium 2.8 - 3.2 mEq/L Potassium Chloride (Kcl 20 Meq Premix Inj) 20 meq in 100 mls @ 50 mls/hr IV.SIG Q2H PRN PRN Reason: For Potassium 3.3 - 3.5 mEq/L Potassium Chloride (Kcl 40 Meq Premix Inj) 40 meq in 100 mls @ 25 mls/hr IV.SIG UNSCH PRN PRN Reason: For Potassium 3.3 - 3.5 mEq/L Potassium Chloride (Kcl 20 Meq Premix Inj) 20 meq in 100 mls @ 50 mls/hr IV.SIG Q2H PRN PRN Reason: For Potassium 2.8 - 3.2 mEq/L Potassium Phosphate 30 mmol/ (Sodium Chloride) 260 mls @ 42 mls/hr IV.SIG UNSCH PRN PRN Reason: SEE LABEL COMMENTS Sodium Phosphate 30 mmol/ (Sodium Chloride) 260 mls @ 42 mls/hr IV.SIG UNSCH PRN PRN Reason: For Phosphorus < 2.5 mg/dL Propofol (Diprivan 1000 Mg/100 Ml Inj) 1,000 mg in 100 mls @ 2.517 mls/hr IV.CONT TITRATE PRN; Protocol PRN Reason: Per Protocol Last Admin: 12/02/17 07:23 Dose: 30 mcg/kg/min, 15.11 mls/hr Acetaminophen (Ofirmev Inj) 1,000 mg in 100 mls @ 400 mls/hr IV.SIG Q8H PRN PRN Reason: PAIN SCALE 1 TO 10 Midazolam HCl (Versed Inj) 50 mg in 50 mls @ 2 mls/hr IV.CONT TITRATE PRN; Protocol PRN Reason: Per Protocol Last Admin: 12/02/17 00:07 Dose: 5 mg/hr, 5 mls/hr Fentanyl (Fentanyl 10 Mcg/Ml Premix Drip) 2,500 mcg in 250 mls @ 5 mls/hr IV.SIG TITRATE PRN; Protocol PRN Reason: Per Protocol Last Titration: 12/01/17 21:40 Dose: 50 mcg/hr, 5 mls/hr Levofloxacin/Dextrose (Levaquin 750 Mg Premix Inj) 150 mls @ 100 mls/hr IV.SIG Q24H [facility] Last Admin: 12/01/17 11:13 Dose: 100 mls/hr Vancomycin HCl 1,500 mg/ (Sodium Chloride) 515 mls @ 250 mls/hr IV.SIG Q12H [facility] Last Infusion: 12/02/17 03:05 Dose: Infused Insulin Aspart (Novolog Insulin Correctional Sugar Inj) 0 unit SQ Q6HR [facility]; Protocol Last Admin: 12/02/17 05:50 Dose: Not Given Labetalol HCl (Trandate Inj) 20 mg IV.PUSH Q2H PRN PRN Reason: SYS BP GREATER THAN 160 [facility] Last Admin: 12/02/17 04:14 Dose: 20 mg Lactulose (Lactulose Liq) 30 ml PO DAILY PRN PRN Reason: SEVERE CONSITIPATION Lorazepam (Ativan Inj) 2 mg IV.PUSH Q2H PRN PRN Reason: SEDATION Magnesium Oxide (Mag-Ox) 800 mg PO UNSCH PRN PRN Reason: For Magnesium 1.2 - 1.6 mg/dL Methylprednisolone Sodium Succinate (Solumedrol Inj) 40 mg IV.PUSH Q12HR [facility] Last Admin: 12/02/17 09:40 Dose: 40 mg Metoclopramide HCl (Reglan Inj) 5 mg IV.PUSH Q6HR [facility]; Protocol Last Admin: 12/02/17 05:49 Dose: 5 mg Nitroglycerin (Nitro-Bid 2% Oint) 2 inch TOPICAL Q6HR PRN PRN Reason: SBP>160, DBP>90 Last Admin: 12/02/17 03:45 Dose: 2 inch Ondansetron HCl (Zofran Inj) 4 mg IV.PUSH Q6H PRN PRN Reason: NAUSEA OR VOMITING Last Admin: 11/27/17 04:04 Dose: 4 mg Patch Removal (Remove Old Patch) 1 each T-DERMAL ONCE ONE Stop: 12/06/17 00:00 Potassium Bicarb/Potassium Chloride (K-Lyte Cl Eff) 50 meq PO UNSCH PRN PRN Reason: For Potassium 3.3 - 3.5 mEq/L Potassium Phosphate (K-Phos Original) 2,000 mg PO Q4H PRN PRN Reason: Phosphorus Less Than 2.5 mg/dL Potassium Phosphate (K-Phos Original) 2,000 mg PO UNSCH PRN PRN Reason: SEE LABEL COMMENTS Senna/Docusate Sodium (Maria Esther-Colace) 1 tab PO BID [facility] Last Admin: 12/02/17 09:40 Dose: 1 tab Sennosides (Senokot) 17.2 mg PO Q12H PRN PRN Reason: Moderate Constipation Sodium Chloride (Ns Flush) 2 ml IV.FLUSH BID [facility] Last Admin: 12/02/17 09:40 Dose: 2 ml Sodium Chloride (Ns Flush) 2 ml IV.FLUSH PRN PRN PRN Reason: FLUSH AFTER USING IV ACCESS Last Admin: 12/01/17 21:19 Dose: 2 ml Allergies Allergy/AdvReac Type Severity Reaction Status Date / Time lisinopril Allergy Severe Swelling Unverified 11/27/17 10:16 of Lip/Tongue/Throat morphine Allergy Mild ITCHING Unverified 11/27/17 03:20 -SWELLING penicillin G Allergy Mild RASH AND Unverified 11/27/17 03:20 HIVES Home Medications Medication Instructions Recorded Confirmed Type lisinopril See Label Instructions .ROUTE 11/27/17 11/27/17 History .COMPLEX Exam Vital signs: Vital Signs 12/01/17 10:30 12/01/17 11:00 12/01/17 11:30 Temperature Pulse Rate 85 86 86 Respiratory Rate 16 16 16 Blood Pressure 137/85 137/86 128/79 Pulse Oximetry 100 100 100 12/01/17 12:00 12/01/17 12:26 12/01/17 12:30 Temperature Pulse Rate 84 82 Respiratory Rate 16 16 16 Blood Pressure 131/82 143/89 H Pulse Oximetry 100 100 100 12/01/17 13:00 12/01/17 13:30 12/01/17 14:00 Temperature Pulse Rate 84 84 81 Respiratory Rate 16 16 16 Blood Pressure 141/87 H 132/83 138/85 Pulse Oximetry 100 100 100 12/01/17 14:30 12/01/17 15:00 12/01/17 15:30 Temperature Pulse Rate 80 80 79 Respiratory Rate 16 16 16 Blood Pressure 142/86 H 134/84 137/86 Pulse Oximetry 100 100 100 12/01/17 15:48 12/01/17 16:00 12/01/17 16:30 Temperature Pulse Rate 79 80 Respiratory Rate 16 16 16 Blood Pressure 146/91 H 141/87 H Pulse Oximetry 100 100 100 12/01/17 17:00 12/01/17 17:30 12/01/17 18:00 Temperature Pulse Rate 80 80 79 Respiratory Rate 16 16 16 Blood Pressure 141/88 H 145/88 H 141/89 H Pulse Oximetry 100 100 100 12/01/17 18:30 12/01/17 19:00 12/01/17 19:30 Temperature Pulse Rate 79 78 79 Respiratory Rate 16 16 16 Blood Pressure 144/90 H 149/89 H 150/92 H Pulse Oximetry 100 100 100 12/01/17 20:00 12/01/17 20:30 12/01/17 20:36 Temperature Pulse Rate 79 79 Respiratory Rate 16 16 16 Blood Pressure 152/94 H 152/94 H Pulse Oximetry 100 100 100 12/01/17 21:00 12/01/17 21:30 12/01/17 21:43 Temperature 99 F Pulse Rate 76 89 Respiratory Rate 16 24 Blood Pressure 156/93 H 136/113 H Pulse Oximetry 100 100 12/01/17 22:00 12/01/17 22:30 12/01/17 23:00 Temperature Pulse Rate 78 77 77 Respiratory Rate 16 16 16 Blood Pressure 146/93 H 154/95 H 154/96 H Pulse Oximetry 100 100 100 12/01/17 23:30 12/02/17 00:00 12/02/17 00:30 Temperature Pulse Rate 76 76 76 Respiratory Rate 16 16 16 Blood Pressure 161/98 H 161/98 H 152/93 H Pulse Oximetry 100 100 100 12/02/17 01:00 12/02/17 01:30 12/02/17 01:34 Temperature Pulse Rate 74 73 Respiratory Rate 16 16 17 Blood Pressure 167/100 H 166/100 H Pulse Oximetry 100 100 100 12/02/17 02:00 12/02/17 02:30 12/02/17 03:00 Temperature Pulse Rate 74 75 75 Respiratory Rate 16 16 16 Blood Pressure 170/103 H 175/104 H 167/99 H Pulse Oximetry 100 100 100 12/02/17 03:30 12/02/17 03:32 12/02/17 03:41 Temperature Pulse Rate 74 74 74 Respiratory Rate 16 16 16 Blood Pressure 177/105 H 177/105 H 177/104 H Pulse Oximetry 100 100 100 12/02/17 03:45 12/02/17 03:52 12/02/17 04:00 Temperature 99 F Pulse Rate 74 74 73 Respiratory Rate 16 16 16 Blood Pressure 178/105 H 177/107 H 179/106 H Pulse Oximetry 100 100 100 12/02/17 04:09 12/02/17 04:15 12/02/17 04:24 Temperature Pulse Rate 74 78 Respiratory Rate 16 15 16 Blood Pressure 180/111 H 170/101 H Pulse Oximetry 100 100 100 12/02/17 04:30 12/02/17 08:04 Temperature Pulse Rate 75 Respiratory Rate 16 16 Blood Pressure 170/107 H Pulse Oximetry 100 100 Intake & Output 12/01/17 12/02/17 12/02/17 18:59 06:59 18:59 Intake Total 715 / 715 3075 / 3075 100 / 100 Output Total 2250 / 2250 Balance 715 / 715 825 / 825 100 / 100 Weight 88.4 kg Intake: IV 615 / 615 3015 / 3015 100 / 100 Versed Inj 50 mg In 50 ml @ 2 50 / 50 MG/HR 2 mls/hr IV.CONT TITRATE PRN Rx#:[id number] Diprivan 1000 mg/100 ml Inj 1, 100 / 100 100 / 100 000 mg In 100 ml @ 5 MCG/KG/MIN 2.517 mls/hr IV.CONT TITRATE PRN Rx#:[id number] NS Inj 1,000 ML @ 84 mls/hr IV. 1999 / 1999 CONT .[id number] [facility] Rx#:[id number] Vancomycin Inj 1,500 MG In NS 515 / 515 515 / 515 Inj 500 ML @ 250 mls/hr IV.SIG Q12H [facility] Rx#:[id number] fentaNYL 10 mcg/mL Premix Drip 250 / 250 2,500 mcg In 250 ml @ 50 MCG/HR 5 mls/hr IV.SIG TITRATE PRN Rx #:[id number] Flolan (30,000 ng/mL) Neb 17.5 100 / 100 100 / 100 ML In NS Inj 82.5 ML @ 8 mls/hr NEB Q8H [facility] Rx#:[id number] Tube Feeding 0 / 0 60 / 60 Water Bolus Amount 100 / 100 Output: Urine Amount (Catheter) 22490 Indwelling Urethral Catheter 2249 Other: Date of Last Bowel Movement 11/30/17 Narrative: GENERAL: Sedated, on the vent, NAD SKIN: Cool and dry, no generalized rash HEAD: Atraumatic. Normocephalic. No temporal or scalp tenderness. EYES: Pupils equal round and reactive. Scleral icterus. No injection or drainage. No petechia ENT: Orally intubated. Lips look ok. Tongue mildly swollen. NECK: Trachea midline. Supple, nontender, no meningeal signs. CARDIOVASCULAR: HS audible. RESPIRATORY: Air entry equal bilaterally. Clear to auscultation bilaterally. GASTROINTESTINAL: Abdomen soft,NT MUSCULOSKELETAL: Extremities without clubbing, cyanosis. NEUROLOGICAL: Sedated Psych could not be assessed IV line sites ok. Results - Labs CBC & Chem 7: 12/02/17 05:09 12/01/17 08:30 Labs: Laboratory Results - last 24 hr 12/01/17 12/01/17 12/01/17 08:30 11:43 17:40 WBC RBC Hgb Hct MCV MCH MCHC RDW Plt Count MPV Neut % (Auto) Lymph % (Auto) [place] % (Auto) Eos % (Auto) Baso % (Auto) Neut # (Auto) Lymph # (Auto) [place] # (Auto) Eos # (Auto) Baso # (Auto) WBC Differential Differential Comment Sodium 140 Potassium 4.5 D Chloride 108 H Carbon Dioxide 23.3 Anion Gap 9 BUN 33 H Creatinine 1.50 H Estimated GFR 58 L POC Glucose 185 H 181 H Random Glucose 168 H Calcium 8.5 Total Bilirubin 0.5 AST 64 H ALT 60 Alkaline Phosphatase 60 Total Protein 6.6 Albumin 1.9 L 12/01/17 12/02/17 12/02/17 21:18 00:26 05:09 WBC 8.1 RBC 3.35 L Hgb 9.3 L Hct 28.6 L MCV 85.2 MCH 27.9 MCHC 32.7 RDW 17.8 H Plt Count 131 L MPV 11.1 H Neut % (Auto) 83.3 H Lymph % (Auto) 9.5 [place] % (Auto) 6.4 Eos % (Auto) 0.0 Baso % (Auto) 0.8 Neut # (Auto) 6.8 Lymph # (Auto) 0.8 L [place] # (Auto) 0.5 Eos # (Auto) 0.0 Baso # (Auto) 0.1 WBC Differential . Differential Comment Auto diff final Sodium Potassium Chloride Carbon Dioxide Anion Gap BUN Creatinine Estimated GFR POC Glucose 171 H 166 H Random Glucose Calcium Total Bilirubin AST ALT Alkaline Phosphatase Total Protein Albumin 12/02/17 06:08 WBC RBC Hgb Hct MCV MCH MCHC RDW Plt Count MPV Neut % (Auto) Lymph % (Auto) [place] % (Auto) Eos % (Auto) Baso % (Auto) Neut # (Auto) Lymph # (Auto) [place] # (Auto) Eos # (Auto) Baso # (Auto) WBC Differential Differential Comment Sodium Potassium Chloride Carbon Dioxide Anion Gap BUN Creatinine Estimated GFR POC Glucose 193 H Random Glucose Calcium Total Bilirubin AST ALT Alkaline Phosphatase Total Protein Albumin - Imaging Chest X-Ray 11/27/17 02:02 CONCLUSION: Clear lungs. Chest X-Ray 11/27/17 07:20 CONCLUSION: No acute infiltrate or effusion. Chest X-Ray 11/28/17 06:00 CONCLUSION: Clear lungs. Chest X-Ray 11/29/17 06:00 CONCLUSION: New opacity at the right lung base representing either volume loss or airspace consolidation. Chest X-Ray 11/30/17 00:00 CONCLUSION: Bibasilar airspace disease slightly more prominent Chest X-Ray 11/30/17 05:00 CONCLUSION: 1. New left basilar pleural-parenchymal opacity representing airspace consolidation and possible small pleural effusion. 2. Stable airspace opacity at the right lung base. Chest X-Ray 12/01/17 00:00 CONCLUSION: Persistent bibasilar densities slightly worsened in the left lower lobe. Assessment and Plan - Plan Sepsis Pneumonia: likely aspiration, secondary to significant angioedema and airway swelling. Angioedema: lisinopril vs Shellfish induced. Allergy to Penicillin: Hives per records. Family history of angioedema: consider referral to allergy pin feather machine operator as outpatient. Rule out Angioedema by initial testing. HTN acute renal failure: prerenal, meds such as Vanco IV. Recs: Continue Levaquin IV Discontinue Vanco IV. Follow staph aureus in sputum is MRSA or if any change in clinical condition consider adding Zyvox or Teflaro IV. check C3, C4 and C1q complement levels. If C4 level low will be characteristic of HANE (Hereditary Angio Neurotic Edema) . Follow cultures Follow clinically. ivania Comber Fixer: about HANE workup. ivania RN for patient. Literature for HANE reviewed, MAR reviewed, critical thinking and decision making.
[2017-12-02 13:02] LABS: Complement C3 142 mg/dL (90-180)
[2017-12-03] MEDS: Insulin NovoLOG Aspart Correctional Sugar Inj SQ SCH ×3 (01:02→18:22)
[2017-12-03] MEDS: Oral Hygiene Kit OROPHARYNG SCH ×4 (01:02→18:23)
[2017-12-03] MEDS: Propofol 1000 mg/100 ml Inj 1,000 MG/100 ML BOTTLE IV.CONT PRN (01:03)
[2017-12-03] MEDS: Labetalol HCl Inj 100 MG/20 ML Vial IV.PUSH PRN ×4 (03:35→23:10)
[2017-12-03] MEDS: Sod Chloride 0.9% Inj 1,000 ML IV.CONT SCH ×2 (05:46→18:00)
[2017-12-03] MEDS: hydrALAZINE 50 MG Tablet PO SCH ×3 (05:47→22:02)
[2017-12-03] MEDS: Enoxaparin Inj 40 MG/0.4 ML Syringe SQ SCH (05:47)
--- NOTE | 2017-12-03 06:04 | XR ---
EXAM DATE: 12/03/2017 5:33 AM EDT AGE/SEX: 57 years / Male INDICATIONS: Short of breath. CLINICAL DATA: This is the patient's subsequent encounter. Patient reports that signs and symptoms h ave been present for 4 - 6 days and indicates a pain score of 0/10. MEDICAL/SURGICAL HISTORY: Non-responsive. Non-responsive. COMPARISON: C, CHEST 1V SINGLE AP, 12/01/2017. . FINDINGS: A single AP view of the chest demonstrates mild bibasilar densities. Slight improvement in left lung base. Nasogastric tube with tip in stomach. Endotracheal tube unchanged. The cardiomediastinal conto urs are unremarkable. Osseous structures are intact. CONCLUSION: Bibasilar densities, slightly improved left lung base. Electronically signed by: Ady Burger MD 12/03/2017 6:03 AM EDT
[2017-12-03 07:49] LABS: Baso % (Auto) 0.2 % (0.0-2.0); Hematocrit 28.2 % (39.0-51.0); Hemoglobin 9.2 gm/dL (13.0-17.0); Lymph # (Auto) 0.8 th/mm3 (1.0-4.8); Lymph % (Auto) 10.1 % (9.0-44.0); Mean Corpuscular HGB Conc 32.5 % (32.0-36.0); Mean Corpuscular Hemoglobin 27.6 pg (27.0-34.0); Mean Corpuscular Volume 84.8 fL (80.0-100.0); Mean Platelet Volume 10.5 fL (7.0-11.0); Mono % (Auto) 12.8 % (0.0-8.0); Neut # (Auto) 5.9 th/mm3 (1.8-7.7); Neut % (Auto) 76.9 % (16.0-70.0); Platelet Count 155 th/mm3 (150-450); Red Blood Count 3.33 mil/mm3 (4.50-5.90); Red Cell Distribution Width 17.7 % (11.6-17.2); White Blood Count 7.6 th/mm3 (4.0-11.0)
[2017-12-03 08:22] LABS: Alanine Aminotransferase 175 U/L (12-78); Albumin 1.9 g/dL (3.4-5.0); Alkaline Phosphatase 69 U/L (45-117); Anion Gap 9 meq/L (5-15); Aspartate Aminotransferase 205 U/L (15-37); Blood Urea Nitrogen 30 mg/dL (7-18); Calcium 8.8 mg/dL (8.5-10.1); Carbon Dioxide 26.5 meq/L (21.0-32.0); Chloride 108 meq/L (98-107); Glomerular Filtration Rate 80 mL/min (>89); Glucose,Random 164 mg/dL (74-106); Sodium 143 meq/L (136-145); Total Protein 6.2 g/dL (6.4-8.2)
[2017-12-03 08:25] LABS: Lymphocytes 5 % (9-44); Monocytes 9 % (0-8); Myelocytes 2 % (0-0); Tallied Nucleated RBC 4 (0-0)
[2017-12-03 08:26] LABS: Platelet Estimate Normal (Normal)
[2017-12-03] MEDS: Famotidine PF Inj 20 MG/2 ML Vial IV.PUSH SCH ×2 (09:00→21:00)
[2017-12-03] MEDS ORDERED: MethylPREDNISolone Sod Succinate Inj 40 MG/ML Vial IV.PUSH SCH (09:40)
--- NOTE | 2017-12-03 09:44 | P.PNCC ---
Subjective Subjective Remarks/Hospital Course: 57-year-old male presents with upper and lower lip angioedema since approximately 8 PM with progressive worsening. Prior to arrival to the emergency department patient did receive a dose of Benadryl and epinephrine. Patient noticed some decrease in swelling to the left side of the upper lip but still feels like there is significant swelling to the upper and lower lip and has some tightness in his throat. Patient does have hypertension and has been prescribed lisinopril in the past but states he has not been on any blood pressure medication for at least 1 week. Patient did eat shellfish this evening. Patient does not present with a urticarial rash. No prior history of acute allergic reaction with similar type symptoms although does have a sensitivity with itching to morphine and rash and hives to penicillin. No recent antibiotic prescription or use. 11/27: Afebrile. Currently sedated on propofol and midazolam drips and placed on the ventilator due to severe angioedema.. Discussed with likely cause angioedema including possibly blood pressure medication versus iodine/ shellfish. She expressed understanding. SUBJECTIVE 11/28: Remains deeply sedated on propofol and midazolam drips. Hemodynamically stable. Adequate urine output. It appears that his mucosal/oral edema has improved. 11/29: Remains sedated, nasally intubated on mechanical ventilation. Elevated blood pressure noted. Starting oral amlodipine/HCTZ and hydralazine via OG tube. 11/30: Remains sedated, nasally intubated on mechanical ventilation. 12/01: Remains sedated, nasally intubated on mechanical ventilation. Worsening respiratory status since yesterday for which patient was placed on inhaled Flolan nebulizer treatments. He did have fevers pancultures were sent yesterday and patient was started on empiric Levaquin and vancomycin IV. Sputum growing staph. On P +15 and inhaled Flolan currently. FiO2 down to 40%. 12/02: Remains sedated, nasally intubated on mechanical ventilation. Flolan being titrated down. PEEP decreased to +12. FiO2 35%. 12/03: Remains sedated, nasally intubated on mechanical ventilation. Off Flolan. On 35% FiO2, PEEP +5. Tongue swelling seems to have decreased. Objective Vital Signs / I&O: Vital Signs 12/02/17 09:30 12/02/17 10:00 12/02/17 10:30 Temperature Pulse Rate 74 72 73 Respiratory Rate 16 16 16 Blood Pressure 166/99 H 175/105 H 178/107 H Pulse Oximetry 100 100 100 12/02/17 11:40 12/02/17 12:00 12/02/17 15:31 Temperature Pulse Rate Respiratory Rate 16 16 16 Blood Pressure Pulse Oximetry 100 100 12/02/17 16:00 12/02/17 20:00 12/02/17 20:22 Temperature 99.2 F Pulse Rate 75 Respiratory Rate 16 16 16 Blood Pressure 177/99 H Pulse Oximetry 100 100 12/03/17 00:00 12/03/17 00:39 12/03/17 04:00 Temperature 99.1 F 99 F Pulse Rate 76 75 Respiratory Rate 16 16 16 Blood Pressure 171/98 H 171/99 H Pulse Oximetry 100 98 100 12/03/17 04:47 12/03/17 07:35 Temperature Pulse Rate Respiratory Rate 16 16 Blood Pressure Pulse Oximetry 98 100 Intake & Output 12/02/17 12/03/17 12/03/17 18:59 06:59 18:59 Intake Total 1300 / 1300 1150 / 1150 Output Total 1900 / 1900 1900 / 1900 Balance -600 / -600 -750 / -750 Weight 88 kg Intake: IV 1300 / 1300 1150 / 1150 Versed Inj 50 mg In 50 ml @ 2 50 / 50 MG/HR 2 mls/hr IV.CONT TITRATE PRN Rx#:[id number] Diprivan 1000 mg/100 ml Inj 1, 200 / 200 100 / 100 000 mg In 100 ml @ 5 MCG/KG/MIN 2.517 mls/hr IV.CONT TITRATE PRN Rx#:[id number] NS Inj 1,000 ML @ 84 mls/hr IV. 1000 / 1000 1000 / 1000 CONT .[id number] [facility] Rx#:[id number] Output: Urine Amount (Catheter) 1899 / 0 1899 / 1899 Indwelling Urethral Catheter 1899 Other: Date of Last Bowel Movement 11/30/17 11/30/17 Result Diagrams: 12/03/17 05:55 12/03/17 05:55 Objective Remarks: GENERAL: 57-year-old AA male currently nasally intubated and right nares sedated on propofol midazolam drips in restraints/soft SKIN: Warm and dry. No rash HEAD: Atraumatic. Normocephalic. EYES: Pupils equal and round. No scleral icterus. No injection or drainage. ENT: No nasal bleeding or discharge. Mucous membranes pink and moist. Tongue swelling appears to have decreased. 7.5 ET tube in right nares. NECK: Trachea midline. No JVD. CARDIOVASCULAR: Cardiac, RRR. S1, S3 no S4. Without murmur RESPIRATORY: No accessory muscle use. Clear to auscultation. Breath sounds equal bilaterally. GASTROINTESTINAL: Abdomen soft, non-tender, nondistended. Hepatic and splenic margins not palpable. MUSCULOSKELETAL: Extremities without clubbing, cyanosis, or edema. No obvious deformities. NEUROLOGICAL: Currently sedated, nasally intubated. Prior to intubation,. No obvious cranial nerve deficits. Motor grossly within normal limits. Five out of 5 muscle strength in the arms and legs. Assessment and Plan - Assessment and Plan Plan: Neuro/Psych: Currently on propofol drip at 50 mcg per kilogram per minute midazolam drip at 5 mg an hour for sedation/analgesia while intubated. Added fentanyl GTT and Ativan as needed on 11/30. Goal of RASS of -4 No daily sedation vacation until emergent airway edema subsides Ofirmev 1 g IV every 8 hours as needed fever Noted allergy to morphine/pruritus CV: Sinus tachycardia Essential hypertension Currently on normal saline at 84 cc an hour As needed labetalol/Nitropaste for hypertension. Continue Catapres patch, labetalol as needed. Added amlodipine/HCTZ p.o. daily as well as hydralazine p.o. daily via OG tube on 11/29. Labetalol as needed IV. Patient to stay off lisinopril indefinitely in view of angioedema Resp: Acute respiratory failure secondary to angioedema/ pneumonia [facility] 16/550/5/35 Ventilator bundle Albuterol/ipratropium aerosols every 4 hours with albuterol aerosols every 2 hours as needed for dyspnea Off inhaled Flolan Decrease methylprednisolone succinate to 40 mg IV daily and stop on 12/05. Continue diphenhydramine 25 mg every 6 hours and famotidine 20 mg IV twice daily. Start daily CPAP trials to decide extubation GI: Elevated AST Hypoalbuminemia Start tube feeds and advance to goal as tolerated with Glucerna 1.5. Famotidine for GI prophylaxis Dulcolax suppository as needed constipation : Condom catheter replaced with indwelling catheter due to retained urine Endo: Acute hyperglycemia/likely steroid-induced Sliding scale insulin with Accu-Cheks with aspart insulin/low particle every 6 hours to maintain euglycemia Renal: Strict intake output, monitor and replete electrolytes, follow BUN/creatinine. Heme: Normocytic anemia Monitor CBC daily. Follow trends. No indication for transfusion of the breast at this time. ID: Sepsis/pneumonia/ARDS Pancultures sent on 11/30 for fevers and worsening respiratory status. Sputum growing staph. On Levaquin IV. ID consult requested. Off IV vancomycin currently MSK: PT evaluate and treat. FEN: Replace electrolytes per ICU electrolyte protocol. Access -Utilize peripheral IV. Central line if indicated Prophylaxis -GI -famotidine- DVT -SCD/Lovenox 40 units subcutaneously daily Condition remains critical. 35 minutes critical care time.
[2017-12-03] MEDS: Chlorhexidine 0.12% Oral Kit 15 ML UDC OROPHARYNG SCH ×2 (10:30→20:00)
[2017-12-03] MEDS: Senna/Docusate Sodium 8.6/50 MG Tablet PO SCH ×2 (10:30→22:02)
--- NOTE | 2017-12-03 10:33 | P.PNID ---
Subjective Remarks: Mr. Flores is a 57-year-old -[place] male with past medical history significant for hypertension. Per review of records it appears that patient had significant swelling of upper and lower lip which was progressively getting worse associated with some tightness in his throat. Of note patient is on lisinopril at home. Prior to arrival to the emergency department patient received a dose of Benadryl and epinephrine. Patient reportedly was off his lisinopril for approximately 1 week prior to admission. Per review of records it appears that patient ate some shellfish the evening of admission. Patient did not have any urticarial rash at the time of presentation. Patient also has a history of allergy to penicillin reported as hives. No recent antibiotic use. Patient was administered IV Solu-Medrol,, Benadryl, IM epinephrine as well as albuterol inhalation. Despite the above regimen in the ED patient continued to complain of throat irritation and swelling and was found to have mild stridor on admission and therefore was nasally intubated in the emergency department. ICU course: Patient appears to have improved in terms of his lip as well as tongue swelling. At the present time patient remains in the ICU intubated on the ventilator but not on any pressors. He has good urine output. Patient was started on empiric regimen for pneumonia due to concern for sepsis. Infectious diseases consulted for the same. Medical History: Cervical vertebral fusion HTN (hypertension) Overnight events reviewed. No fever No rash No diarrhea Extubated this am, doing well resp valdes. Antibiotics: Levaquin IV Lines: Line sites with no e.o infection Past Medical History: HTN Allergies/Adverse Reactions: Allergies lisinopril Allergy (Severe, Unverified 11/27/17 10:16) Swelling of Lip/Tongue/Throat morphine Allergy (Mild, Unverified 11/27/17 03:20) ITCHING -SWELLING penicillin G Allergy (Mild, Unverified 11/27/17 03:20) RASH AND HIVES Objective Vital Signs 12/02/17 11:40 12/02/17 12:00 12/02/17 15:31 Temperature Pulse Rate Respiratory Rate 16 16 16 Blood Pressure Pulse Oximetry 100 100 12/02/17 16:00 12/02/17 20:00 12/02/17 20:22 Temperature 99.2 F Pulse Rate 75 Respiratory Rate 16 16 16 Blood Pressure 177/99 H Pulse Oximetry 100 100 12/03/17 00:00 12/03/17 00:39 12/03/17 04:00 Temperature 99.1 F 99 F Pulse Rate 76 75 Respiratory Rate 16 16 16 Blood Pressure 171/98 H 171/99 H Pulse Oximetry 100 98 100 12/03/17 04:47 12/03/17 07:35 12/03/17 10:25 Temperature Pulse Rate 96 H Respiratory Rate 16 16 24 Blood Pressure Pulse Oximetry 98 100 Intake & Output 12/02/17 12/03/17 12/03/17 18:59 06:59 18:59 Intake Total 1300 / 1300 1150 / 1150 Output Total 1900 / 1900 1900 / 1900 Balance -600 / -600 -750 / -750 Weight 88 kg Intake: IV 1300 / 1300 1150 / 1150 Versed Inj 50 mg In 50 ml @ 2 50 / 50 MG/HR 2 mls/hr IV.CONT TITRATE PRN Rx#:[id number] Diprivan 1000 mg/100 ml Inj 1, 200 / 200 100 / 100 000 mg In 100 ml @ 5 MCG/KG/MIN 2.517 mls/hr IV.CONT TITRATE PRN Rx#:[id number] NS Inj 1,000 ML @ 84 mls/hr IV. 1000 / 1000 1000 / 1000 CONT .[id number] [facility] Rx#:[id number] Output: Urine Amount (Catheter) 1900 / 1900 1900 / 1900 Indwelling Urethral Catheter 1899 Other: Date of Last Bowel Movement 11/30/17 11/30/17 11/30/17 10:20 Sputum - Endotracheal Gram Stain - Final 11/30/17 10:20 Sputum - Endotracheal Sputum Culture - Preliminary Staphylococcus aureus 11/30/17 12:00 Blood - Peripheral Aerobic Blood Culture - Preliminary No growth in 2 days 11/30/17 12:00 Blood - Peripheral Anaerobic Blood Culture - Preliminary No growth in 2 days 11/30/17 12:08 Blood - Peripheral Aerobic Blood Culture - Preliminary No growth in 2 days 11/30/17 12:08 Blood - Peripheral Anaerobic Blood Culture - Preliminary No growth in 2 days 11/30/17 10:20 Catheterized Urine Urine Culture - Final Staphylococcus epidermidis Lab - Hematology Results 12/02/17 12/03/17 05:09 05:55 WBC 8.1 7.6 RBC 3.35 L 3.33 L Hgb 9.3 L 9.2 L Hct 28.6 L 28.2 L MCV 85.2 84.8 MCH 27.9 27.6 MCHC 32.7 32.5 RDW 17.8 H 17.7 H Plt Count 131 L 155 MPV 11.1 H 10.5 Prelim Diff (Auto) Slide review pending Neut % (Auto) 83.3 H 76.9 H Lymph % (Auto) 9.5 10.1 [place] % (Auto) 6.4 12.8 H Eos % (Auto) 0.0 0.0 Baso % (Auto) 0.8 0.2 Neut # (Auto) 6.8 5.9 Lymph # (Auto) 0.8 L 0.8 L [place] # (Auto) 0.5 1.0 H Eos # (Auto) 0.0 0.0 Baso # (Auto) 0.1 0.0 WBC Differential . Manual diff final Seg Neuts % (Manual) 81 H Band Neuts % (Manual) 3 Lymphocytes % (Manual) 5 L Monocytes % (Manual) 9 H Myelocytes % (Man) 2 H Abs Neuts (Manual) 6.5 Nucleated RBCs/100 WBC 4 H Differential Comment Auto diff final . Platelet Estimate Normal Platelet Morphology Enlarged H Lab - Chemistry Results 12/01/17 12/01/17 12/01/17 11:43 17:40 21:18 Sodium Potassium Chloride Carbon Dioxide Anion Gap BUN Creatinine Estimated GFR POC Glucose 185 H 181 H 171 H Random Glucose Calcium Total Bilirubin AST ALT Alkaline Phosphatase Total Protein Albumin 12/02/17 12/02/17 12/02/17 00:26 06:08 18:10 Sodium Potassium Chloride Carbon Dioxide Anion Gap BUN Creatinine Estimated GFR POC Glucose 166 H 193 H 188 H Random Glucose Calcium Total Bilirubin AST ALT Alkaline Phosphatase Total Protein Albumin 12/03/17 12/03/17 12/03/17 00:26 05:50 05:55 Sodium 143 Potassium 4.0 Chloride 108 H Carbon Dioxide 26.5 Anion Gap 9 BUN 30 H Creatinine 1.14 Estimated GFR 80 L POC Glucose 168 H 177 H Random Glucose 164 H Calcium 8.8 Total Bilirubin 0.4 AST 205 H ALT 175 H Alkaline Phosphatase 69 Total Protein 6.2 L Albumin 1.9 L Imaging: ITS Impressions Chest X-Ray 12/03/17 05:00 CONCLUSION: Bibasilar densities, slightly improved left lung base. Physical Exam: GENERAL: Sedated, on the vent, NAD SKIN: Cool and dry, no generalized rash HEAD: Atraumatic. Normocephalic. No temporal or scalp tenderness. EYES: Pupils equal round and reactive. Scleral icterus. No injection or drainage. No petechia ENT: Lips look ok. Tongue mildly swollen. NECK: Trachea midline. Supple, nontender, no meningeal signs. CARDIOVASCULAR: HS audible. RESPIRATORY: Air entry equal bilaterally. Clear to auscultation bilaterally. GASTROINTESTINAL: Abdomen soft,NT MUSCULOSKELETAL: Extremities without clubbing, cyanosis. NEUROLOGICAL: Sedated Psych could not be assessed IV line sites ok. Assessment and Plan - Plan Sepsis Pneumonia: likely aspiration, secondary to significant angioedema and airway swelling. Angioedema: lisinopril vs Shellfish induced. Allergy to Penicillin: Hives per records. Family history of angioedema: consider referral to allergy production editor as outpatient. Rule out Angioedema by initial testing. HTN acute renal failure: prerenal, meds such as Vanco IV. Recs: Continue Levaquin IV (may be switched to oral when tolerated) for atleast 3-5 days depending on clinical course. CXR may lag behind in improvement. Follow C3, C4 and C1q complement levels. If C4 level low will be characteristic of HANE (Hereditary Angio Neurotic Edema) . Follow cultures Follow clinically. ivania RN for patient. case dw patients . Reviewed allergy for penicillin as rash. Informed her that it is important to have an outpatient allergy production editor follow up. Will follow prn.
[2017-12-03] MEDS: amLODIPine 10 MG Tablet NG/OG SCH (14:34)
[2017-12-03] MEDS: hydroCHLOROthiazide 25 MG Tablet PO SCH (14:34)
[2017-12-03] MEDS: Hypromellose 0.3% Opth Gel 10 GM Bottle EACH EYE SCH ×2 (18:21→20:58)
[2017-12-04] MEDS: Insulin NovoLOG Aspart Correctional Sugar Inj SQ SCH ×5 (00:43→23:42)
[2017-12-04] MEDS: Oral Hygiene Kit OROPHARYNG SCH ×5 (00:44→23:43)
[2017-12-04] MEDS: Labetalol HCl Inj 100 MG/20 ML Vial IV.PUSH PRN ×2 (03:32→07:29)
[2017-12-04] MEDS: hydrALAZINE 50 MG Tablet PO SCH ×3 (05:58→21:19)
[2017-12-04] MEDS: Enoxaparin Inj 40 MG/0.4 ML Syringe SQ SCH (05:58)
[2017-12-04] MEDS: Sod Chloride 0.9% Inj 1,000 ML IV.CONT SCH ×5 (06:35→19:51)
[2017-12-04 07:20] LABS: Baso % (Auto) 0.5 % (0.0-2.0); Eos % (Auto) 0.5 % (0.0-4.0); Hematocrit 30.4 % (39.0-51.0); Hemoglobin 10.2 gm/dL (13.0-17.0); Lymph # (Auto) 2.1 th/mm3 (1.0-4.8); Lymph % (Auto) 26.6 % (9.0-44.0); Mean Corpuscular HGB Conc 33.5 % (32.0-36.0); Mean Corpuscular Hemoglobin 27.9 pg (27.0-34.0); Mean Corpuscular Volume 83.3 fL (80.0-100.0); Mono # (Auto) 1.3 th/mm3 (0.0-0.9); Mono % (Auto) 16.1 % (0.0-8.0); Neut # (Auto) 4.5 th/mm3 (1.8-7.7); Neut % (Auto) 56.3 % (16.0-70.0); Platelet Count 173 th/mm3 (150-450); Red Blood Count 3.65 mil/mm3 (4.50-5.90); White Blood Count 8.1 th/mm3 (4.0-11.0)
[2017-12-04 07:38] LABS: Anion Gap 9 meq/L (5-15); Aspartate Aminotransferase 187 U/L (15-37); Blood Urea Nitrogen 25 mg/dL (7-18); Calcium 8.9 mg/dL (8.5-10.1); Carbon Dioxide 27.2 meq/L (21.0-32.0); Chloride 109 meq/L (98-107); Glomerular Filtration Rate 82 mL/min (>89); Glucose,Random 85 mg/dL (74-106); Potassium 3.2 meq/L (3.5-5.1); Sodium 145 meq/L (136-145)
[2017-12-04 07:44] LABS: Alanine Aminotransferase 189 U/L (12-78); Alkaline Phosphatase 79 U/L (45-117); Total Protein 6.4 g/dL (6.4-8.2)
[2017-12-04 08:22] LABS: Eosinophils 1 % (0-4); Lymphocytes 20 % (9-44); Metamyelocytes 1 % (0-1); Monocytes 11 % (0-8); Myelocytes 1 % (0-0)
[2017-12-04 08:23] LABS: Platelet Estimate Normal (Normal)
[2017-12-04] MEDS: Famotidine PF Inj 20 MG/2 ML Vial IV.PUSH SCH ×2 (09:00→20:32)
--- NOTE | 2017-12-04 09:19 | P.PNCC ---
Subjective Subjective Remarks/Hospital Course: 57-year-old male presents with upper and lower lip angioedema since approximately 8 PM with progressive worsening. Prior to arrival to the emergency department patient did receive a dose of Benadryl and epinephrine. Patient noticed some decrease in swelling to the left side of the upper lip but still feels like there is significant swelling to the upper and lower lip and has some tightness in his throat. Patient does have hypertension and has been prescribed lisinopril in the past but states he has not been on any blood pressure medication for at least 1 week. Patient did eat shellfish this evening. Patient does not present with a urticarial rash. No prior history of acute allergic reaction with similar type symptoms although does have a sensitivity with itching to morphine and rash and hives to penicillin. No recent antibiotic prescription or use. 11/27: Afebrile. Currently sedated on propofol and midazolam drips and placed on the ventilator due to severe angioedema.. Discussed with likely cause angioedema including possibly blood pressure medication versus iodine/ shellfish. She expressed understanding. SUBJECTIVE 11/28: Remains deeply sedated on propofol and midazolam drips. Hemodynamically stable. Adequate urine output. It appears that his mucosal/oral edema has improved. 11/29: Remains sedated, nasally intubated on mechanical ventilation. Elevated blood pressure noted. Starting oral amlodipine/HCTZ and hydralazine via OG tube. 11/30: Remains sedated, nasally intubated on mechanical ventilation. 12/01: Remains sedated, nasally intubated on mechanical ventilation. Worsening respiratory status since yesterday for which patient was placed on inhaled Flolan nebulizer treatments. He did have fevers pancultures were sent yesterday and patient was started on empiric Levaquin and vancomycin IV. Sputum growing staph. On P +15 and inhaled Flolan currently. FiO2 down to 40%. 12/02: Remains sedated, nasally intubated on mechanical ventilation. Flolan being titrated down. PEEP decreased to +12. FiO2 35%. 12/03: Remains sedated, nasally intubated on mechanical ventilation. Off Flolan. On 35% FiO2, PEEP +5. Tongue swelling seems to have decreased. 12/04: Extubated yesterday. On nasal cannula. Failed swallow eval yesterday. Awake and alert. Denies any shortness of breath. Speech appears normal. No stridor. Objective Vital Signs / I&O: Vital Signs 12/03/17 09:00 12/03/17 09:30 12/03/17 10:00 Temperature Pulse Rate 81 97 H 102 H Respiratory Rate 17 32 H 30 H Blood Pressure 149/84 H 150/90 H 159/124 H Pulse Oximetry 100 100 100 12/03/17 10:25 12/03/17 10:30 12/03/17 11:00 Temperature Pulse Rate 96 H 93 H 93 H Respiratory Rate 24 26 H 27 H Blood Pressure 143/80 H 144/86 H Pulse Oximetry 100 100 12/03/17 11:30 12/03/17 11:46 12/03/17 12:00 Temperature Pulse Rate 90 85 Respiratory Rate 24 25 H Blood Pressure 147/89 H 149/87 H Pulse Oximetry 100 100 100 12/03/17 12:31 12/03/17 13:00 12/03/17 13:30 Temperature Pulse Rate 87 89 93 H Respiratory Rate 26 H 28 H 30 H Blood Pressure 160/90 H 162/93 H 172/96 H Pulse Oximetry 100 100 100 12/03/17 14:00 12/03/17 14:30 12/03/17 15:01 Temperature Pulse Rate 91 H 93 H 96 H Respiratory Rate 27 H 33 H 36 H Blood Pressure 176/97 H 186/96 H 169/90 H Pulse Oximetry 100 100 100 12/03/17 15:30 12/03/17 16:01 12/03/17 20:00 Temperature 98.5 F 99.9 F H Pulse Rate 96 H 96 H 99 H Respiratory Rate 32 H 29 H 32 H Blood Pressure 176/100 H 172/100 H 165/94 H Pulse Oximetry 100 99 96 12/04/17 00:00 12/04/17 04:00 12/04/17 05:59 Temperature 101 F H Pulse Rate 99 H 94 H Respiratory Rate 31 H 35 H 31 H Blood Pressure 168/95 H 166/94 H Pulse Oximetry 100 95 Intake & Output 12/03/17 12/04/17 12/04/17 18:59 06:59 18:59 Intake Total 1000 / 1000 1250 / 1250 Output Total 1260 / 1260 Balance -260 / -260 1250 / 1250 Weight 88.5 kg Intake: IV 1000 / 1000 1250 / 1250 NS Inj 1,000 ML @ 84 mls/hr IV. 1000 / 1000 1000 / 1000 CONT .[id number] [facility] Rx#:[id number] Ofirmev Inj 1,000 mg In 100 ml 100 / 100 @ 400 mls/hr IV.SIG Q8H PRN Rx# :[id number] Levaquin 750 mg Premix Inj 150 150 / 150 ML @ 100 mls/hr IV.SIG Q24H [facility] Rx#:[id number] Output: Urine 110 / 110 Urine Amount (Catheter) 1150 / 1150 Indwelling Urethral Catheter 1150 / 1150 Other: Date of Last Bowel Movement 11/30/17 12/04/17 # Bowel Movements 1 Result Diagrams: 12/04/17 05:03 12/04/17 05:03 Objective Remarks: GENERAL: 57-year-old AA male sitting up in bed on nasal cannula not in any acute distress. SKIN: Warm and dry. No rash HEAD: Atraumatic. Normocephalic. EYES: Pupils equal and round. No scleral icterus. No injection or drainage. ENT: No nasal bleeding or discharge. Mucous membranes pink and moist. Tongue swelling resolved.. NECK: Trachea midline. No JVD. CARDIOVASCULAR: Cardiac, RRR. S1, S3 no S4. Without murmur RESPIRATORY: Good air entry bilaterally, scattered rhonchi, no wheezing. GASTROINTESTINAL: Abdomen soft, non-tender, nondistended. Hepatic and splenic margins not palpable. MUSCULOSKELETAL: Extremities without clubbing, cyanosis, or edema. No obvious deformities. NEUROLOGICAL: Awake alert oriented x3, grossly nonfocal. Assessment and Plan - Assessment and Plan Plan: Neuro/Psych: Currently on propofol drip at 50 mcg per kilogram per minute midazolam drip at 5 mg an hour for sedation/analgesia while intubated. Added fentanyl GTT and Ativan as needed on 11/30. Goal of RASS of -4 No daily sedation vacation until emergent airway edema subsides Ofirmev 1 g IV every 8 hours as needed fever Noted allergy to morphine/pruritus CV: Sinus tachycardia Essential hypertension Currently on normal saline at 84 cc an hour As needed labetalol/Nitropaste for hypertension. Continue Catapres patch, labetalol as needed. Added amlodipine/HCTZ p.o. daily as well as hydralazine p.o. daily via OG tube on 11/29. Labetalol as needed IV. Patient to stay off lisinopril indefinitely in view of angioedema Resp: Acute respiratory failure secondary to angioedema/ pneumonia Albuterol/ipratropium aerosols every 4 hours with albuterol aerosols every 2 hours as needed for dyspnea Off inhaled Flolan Stop Solu-Medrol on 12/04. diphenhydramine 25 mg every 6 hours as needed, famotidine 20 mg IV twice daily. Start daily CPAP trials to decide extubation GI: Elevated AST Hypoalbuminemia Start tube feeds and advance to goal as tolerated with Glucerna 1.5. Famotidine for GI prophylaxis Dulcolax suppository as needed constipation : Condom catheter replaced with indwelling catheter due to retained urine Endo: Acute hyperglycemia/likely steroid-induced Sliding scale insulin with Accu-Cheks with aspart insulin/low particle every 6 hours to maintain euglycemia Renal: Strict intake output, monitor and replete electrolytes, follow BUN/creatinine. Heme: Normocytic anemia Monitor CBC daily. Follow trends. No indication for transfusion of the breast at this time. ID: Sepsis/pneumonia Pancultures sent on 11/30 for fevers and worsening respiratory status. Sputum growing staph. On Levaquin IV. ID consult requested. Off IV vancomycin currently MSK: PT evaluate and treat. FEN: Replace electrolytes per ICU electrolyte protocol. Access -Utilize peripheral IV. Central line if indicated Prophylaxis -GI -famotidine- DVT -SCD/Lovenox 40 units subcutaneously daily
--- NOTE | 2017-12-04 17:41 | ECHRPT ---
Indication: HYPERTENSIVE HEART DISEASE CONCLUSIONS Normal left ventricular size. Wall thickness is normal. The left ventricular systolic function is normal with an estimated ejection fraction in the range of 55-60%. Mild mitral valve regurgitation. There is trace tricuspid valve regurgitation. The estimated pulmonary arterial pressure is 36 mmHg. BP: / HR: Rhythm: Sinus MEASUREMENTS (Male / Female) Normal Values Technical Quality:Fair 2D ECHO LV Diastolic Diameter PLAX 5.1 cm 4.2 - 5.9 / 3.9 - 5.3 cm LV Systolic Diameter PLAX 3.8 cm IVS Diastolic Thickness 1.0 cm 0.6 - 1.0 / 0.6 - 0.9 cm LVPW Diastolic Thickness 1.0 cm 0.6 - 1.0 / 0.6 - 0.9 cm LV Relative Wall Thickness 0.4 RV Internal Dim ED PLAX 2.8 cm LVOT Diameter 2.1 cm Aortic Root Diameter 3.4 cm LA Systolic Diameter LX 3.1 cm 3.0 - 4.0 / 2.7 - 3.8 cm M-MODE AV Cusp Separation MM 1.7 cm DOPPLER AV Peak Velocity 134.0 cm/s AV Peak Gradient 7.2 mmHg AV Mean Gradient 3.0 mmHg AV Velocity Time Integral 20.6 cm LVOT Peak Velocity 64.7 cm/s LVOT Peak Gradient 1.7 mmHg LVOT Velocity Time Integral 9.5 cm AV Area Cont Eq vti 1.6 cm AV Area Cont Eq pk 1.7 cm Mitral E Point Velocity 68.1 cm/s Mitral A Point Velocity 88.4 cm/s Mitral E to A Ratio 0.8 LV E' Lateral Velocity 7.1 cm/s Mitral E to LV E' Lateral Ratio 9.6 LV E' Septal Velocity 6.9 cm/s Mitral E to LV E' Septal Ratio 9.8 TR Peak Velocity 257.0 cm/s TR Peak Gradient 26.4 mmHg Right Atrial Pressure 10.0 mmHg Pulmonary Artery Systolic Pressu 36.4 mmHg Right Ventricular Systolic Press 36.4 mmHg PV Peak Velocity 54.9 cm/s PV Peak Gradient 1.2 mmHg FINDINGS LEFT VENTRICLE Normal left ventricular size. Wall thickness is normal. The left ventricular systolic function is normal with an estimated ejection fraction in the range of 55-60%. RIGHT VENTRICLE Normal right ventricular size and systolic function. LEFT ATRIUM The left atrial size is normal. RIGHT ATRIUM The right atrial size is normal. ATRIAL SEPTUM No atrial level shunt is demonstrated by color flow Doppler interrogation. AORTA The aortic root and proximal ascending aorta are normal in size on limited imaging. MITRAL VALVE Mild mitral valve regurgitation. AORTIC VALVE Trileaflet aortic valve. No aortic valve stenosis or regurgitation. TRICUSPID VALVE There is trace tricuspid valve regurgitation. The estimated pulmonary arterial pressure is 36.4 mmHg. PULMONARY VALVE No pulmonary valve regurgitation or stenosis. VESSELS The inferior vena cava is normal in size. PERICARDIUM No pericardial effusion. Robert Osborn MD, FACC (Electronically Signed) Final Date:04 December 2017 17:40
[2017-12-04] MEDS: Chlorhexidine 0.12% Oral Kit 15 ML UDC OROPHARYNG SCH ×2 (19:29→20:31)
[2017-12-04] MEDS: amLODIPine 10 MG Tablet NG/OG SCH (19:29)
[2017-12-04] MEDS: hydroCHLOROthiazide 25 MG Tablet PO SCH (19:29)
[2017-12-04] MEDS: Hypromellose 0.3% Opth Gel 10 GM Bottle EACH EYE SCH ×2 (19:29→20:31)
[2017-12-04] MEDS: Senna/Docusate Sodium 8.6/50 MG Tablet PO SCH ×2 (19:30→20:10)
[2017-12-04] MEDS: MethylPREDNISolone Sod Succinate Inj 40 MG/ML Vial IV.PUSH SCH (20:17)
[2017-12-04] MEDS: niCARdipine Inj 25 MG in Sodium Chlor 0.9% Inj 240 ML IV.CONT PRN (21:32)
[2017-12-04] MEDS: EPOPROSTENOL NEB SCH (22:23)
[2017-12-04] MEDS: SODIUM CHLORIDE NEB SCH (22:23)
[2017-12-05] MEDS: niCARdipine Inj 25 MG in Sodium Chlor 0.9% Inj 240 ML IV.CONT PRN ×5 (00:01→23:41)
[2017-12-05] MEDS: Sod Chloride 0.9% Inj 1,000 ML IV.CONT SCH (01:38)
[2017-12-05] MEDS: hydrALAZINE 50 MG Tablet PO SCH ×3 (05:40→21:37)
[2017-12-05] MEDS: Enoxaparin Inj 40 MG/0.4 ML Syringe SQ SCH (05:40)
[2017-12-05] MEDS: Oral Hygiene Kit OROPHARYNG SCH ×4 (05:40→23:42)
[2017-12-05 05:48] LABS: Baso % (Auto) 0.3 % (0.0-2.0); Eos # (Auto) 0.1 th/mm3 (0.0-0.4); Eos % (Auto) 1.2 % (0.0-4.0); Hematocrit 30.5 % (39.0-51.0); Hemoglobin 10.1 gm/dL (13.0-17.0); Lymph # (Auto) 1.5 th/mm3 (1.0-4.8); Lymph % (Auto) 20.4 % (9.0-44.0); Mean Corpuscular Hemoglobin 27.9 pg (27.0-34.0); Mean Corpuscular Volume 84.6 fL (80.0-100.0); Mean Platelet Volume 9.9 fL (7.0-11.0); Mono % (Auto) 13.5 % (0.0-8.0); Neut # (Auto) 4.9 th/mm3 (1.8-7.7); Neut % (Auto) 64.6 % (16.0-70.0); Platelet Count 194 th/mm3 (150-450); Red Blood Count 3.61 mil/mm3 (4.50-5.90); Red Cell Distribution Width 17.5 % (11.6-17.2); White Blood Count 7.5 th/mm3 (4.0-11.0)
[2017-12-05] MEDS: Insulin NovoLOG Aspart Correctional Sugar Inj SQ SCH ×3 (05:52→19:40)
[2017-12-05 06:13] LABS: Alanine Aminotransferase 137 U/L (12-78); Albumin 2.1 g/dL (3.4-5.0); Anion Gap 11 meq/L (5-15); Aspartate Aminotransferase 88 U/L (15-37); Blood Urea Nitrogen 20 mg/dL (7-18); Calcium 8.8 mg/dL (8.5-10.1); Carbon Dioxide 24.2 meq/L (21.0-32.0); Chloride 112 meq/L (98-107); Glomerular Filtration Rate 86 mL/min (>89); Glucose,Random 100 mg/dL (74-106); Sodium 147 meq/L (136-145)
[2017-12-05 06:15] LABS: Alkaline Phosphatase 71 U/L (45-117); Total Protein 6.5 g/dL (6.4-8.2)
[2017-12-05] MEDS: Chlorhexidine 0.12% Oral Kit 15 ML UDC OROPHARYNG SCH ×2 (08:08→20:09)
[2017-12-05] MEDS: Hypromellose 0.3% Opth Gel 10 GM Bottle EACH EYE SCH ×2 (08:10→20:09)
[2017-12-05] MEDS: hydroCHLOROthiazide 25 MG Tablet PO SCH (08:11)
[2017-12-05] MEDS: amLODIPine 10 MG Tablet NG/OG SCH (08:11)
[2017-12-05] MEDS: Famotidine PF Inj 20 MG/2 ML Vial IV.PUSH SCH ×2 (08:12→20:32)
[2017-12-05] MEDS: Senna/Docusate Sodium 8.6/50 MG Tablet PO SCH ×2 (08:14→20:09)
[2017-12-05] MEDS: KCL 20 mEq/NACL 0.45% Inj 1,000 ML IV.CONT SCH ×2 (13:36→23:41)
--- NOTE | 2017-12-05 18:25 | P.PNIM ---
Subjective Interval history: Patient says he is feeling a little better today. He reports back pain, some scratches on his back. Still difficulty swallowing. Failed swallow eval. Unable to walk due to generalized weakness. Physical Exam Vital signs: Vital Signs 12/04/17 19:00 12/04/17 19:05 12/04/17 19:10 Temperature Pulse Rate 94 H 95 H 95 H Respiratory Rate 33 H 31 H 32 H Blood Pressure 168/100 H 167/96 H 160/92 H Pulse Oximetry 89 L 89 L 89 L 12/04/17 19:15 12/04/17 19:20 12/04/17 20:00 Temperature 99.8 F H Pulse Rate 96 H 96 H 96 H Respiratory Rate 33 H Blood Pressure 156/91 H 149/86 H 138/83 Pulse Oximetry 88 L 88 L 92 L 12/04/17 20:06 12/04/17 23:42 12/05/17 00:00 Temperature 99.9 F H Pulse Rate 97 H Respiratory Rate 24 Blood Pressure 128/77 Pulse Oximetry 90 L 97 91 L 12/05/17 01:04 12/05/17 04:00 12/05/17 04:16 Temperature 98.5 F Pulse Rate 90 Respiratory Rate 22 22 Blood Pressure 132/74 Pulse Oximetry 95 96 12/05/17 08:00 12/05/17 09:10 12/05/17 12:00 Temperature 98.8 F 99 F Pulse Rate 87 92 H Respiratory Rate 20 22 Blood Pressure 141/82 H 153/84 H Pulse Oximetry 98 95 97 12/05/17 16:00 Temperature 99.4 F Pulse Rate 93 H Respiratory Rate 20 Blood Pressure 150/85 H Pulse Oximetry 96 Intake & Output 12/04/17 12/05/17 12/05/17 18:59 06:59 18:59 Intake Total 1000 / 1000 3150 / 3150 Output Total 900 / 900 900 / 900 Balance 100 / 100 2250 / 2250 Weight 88.4 kg Intake: IV 1000 / 1000 3150 / 3150 Diprivan 1000 mg/100 ml Inj 1, 100 / 100 000 mg In 100 ml @ 5 MCG/KG/MIN 2.517 mls/hr IV.CONT TITRATE PRN Rx#:[id number] NS Inj 1,000 ML @ 84 mls/hr IV. 1000 / 1000 1999 / 1999 CONT .[id number] [facility] Rx#:[id number] Cardene Inj 25 MG In NS Inj 240 750 / 750 ML @ 5 MG/HR 50 mls/hr IV.CONT TITRATE PRN Rx#:[id number] Ofirmev Inj 1,000 mg In 100 ml 100 / 100 @ 400 mls/hr IV.SIG Q8H PRN Rx# :[id number] Levaquin 750 mg Premix Inj 150 150 / 150 ML @ 100 mls/hr IV.SIG Q24H [facility] Rx#:[id number] Oral 0 / 0 Output: Urine 900 / 900 900 / 900 Other: Date of Last Bowel Movement 12/04/17 12/04/17 12/04/17 # Bowel Movements 1 0 Narrative: GENERAL: Patient sitting up in bed. Appears comfortable. SKIN: Warm and dry. Some slight abrasions on his back. No surrounding erythema. No purulence. No sign of infection. HEAD: Normocephalic. EYES: No scleral icterus. No injection or drainage. NECK: Supple, trachea midline. No JVD. CARDIOVASCULAR: Regular rate and rhythm without murmurs, gallops, or rubs. RESPIRATORY: Breath sounds equal bilaterally. No accessory muscle use. GASTROINTESTINAL: Abdomen soft, non-tender, nondistended. MUSCULOSKELETAL: No cyanosis, or edema. BACK: Nontender without obvious deformity. No CVA tenderness. - Urinary Catheter Management Straight Cath placed during this visit: yes, but has since been removed by the nurse Reason for continuing: Continue criteria not met Insertion date: 11/28/17 Insertion time: 08:30 Removal date: 12/03/17 Removal time: 15:00 Indwelling Urethral Catheter Cath placed during this visit: yes, but has since been removed by the nurse Reason for continuing: Continue criteria not met Removal date: 12/03/17 Removal time: 15:00 Results - Labs CBC & Chem 7: 12/05/17 04:14 12/05/17 04:14 Laboratory Results - last 24 hr 12/04/17 12/04/17 12/05/17 18:47 23:41 04:14 WBC 7.5 RBC 3.61 L Hgb 10.1 L Hct 30.5 L MCV 84.6 MCH 27.9 MCHC 33.0 RDW 17.5 H Plt Count 194 MPV 9.9 Neut % (Auto) 64.6 Lymph % (Auto) 20.4 [place] % (Auto) 13.5 H Eos % (Auto) 1.2 Baso % (Auto) 0.3 Neut # (Auto) 4.9 Lymph # (Auto) 1.5 [place] # (Auto) 1.0 H Eos # (Auto) 0.1 Baso # (Auto) 0.0 WBC Differential . Differential Comment Auto diff final Sodium Potassium Chloride Carbon Dioxide Anion Gap BUN Creatinine Estimated GFR POC Glucose 108 107 Random Glucose Calcium Total Bilirubin AST ALT Alkaline Phosphatase Total Protein Albumin 12/05/17 12/05/17 12/05/17 04:14 05:46 12:11 WBC RBC Hgb Hct MCV MCH MCHC RDW Plt Count MPV Neut % (Auto) Lymph % (Auto) [place] % (Auto) Eos % (Auto) Baso % (Auto) Neut # (Auto) Lymph # (Auto) [place] # (Auto) Eos # (Auto) Baso # (Auto) WBC Differential Differential Comment Sodium 147 H Potassium 3.0 L Chloride 112 H Carbon Dioxide 24.2 Anion Gap 11 BUN 20 H Creatinine 1.07 Estimated GFR 86 L POC Glucose 103 111 H Random Glucose 100 Calcium 8.8 Total Bilirubin 0.8 AST 88 H ALT 137 H Alkaline Phosphatase 71 Total Protein 6.5 Albumin 2.1 L Microbiology 11/30/17 12:00 Blood - Peripheral Aerobic Blood Culture - Final No growth in 5 days 11/30/17 12:00 Blood - Peripheral Anaerobic Blood Culture - Final No growth in 5 days 11/30/17 12:08 Blood - Peripheral Aerobic Blood Culture - Final No growth in 5 days 11/30/17 12:08 Blood - Peripheral Anaerobic Blood Culture - Final No growth in 5 days Assessment and Plan - Plan ==12/05/17 //Angioedema //Dysphasia //Hypernatremia //Hypertension Likely scombroid poisoning due to oysters versus angioedema secondary to lisinopril. had similar symptoms following the oysters. Hypernatremia with sodium 146. Will switch to half-normal saline. Continue n.p.o. pending improvement in swallowing. If no swallowing improvement over the next couple days, will need to pursue other forms of nutrition. Patient and family convey understanding. Continue to monitor. Blood pressure continues elevated. Patient refuses NG tube. Continue nicardipine drip due to n.p.o. status. Plan: Neuro/Psych: Currently on propofol drip at 50 mcg per kilogram per minute midazolam drip at 5 mg an hour for sedation/analgesia while intubated. Added fentanyl GTT and Ativan as needed on 11/30. Goal of RASS of -4 No daily sedation vacation until emergent airway edema subsides Ofirmev 1 g IV every 8 hours as needed fever Noted allergy to morphine/pruritus CV: Sinus tachycardia Essential hypertension Currently on normal saline at 84 cc an hour As needed labetalol/Nitropaste for hypertension. Continue Catapres patch, labetalol as needed. Added amlodipine/HCTZ p.o. daily as well as hydralazine p.o. daily via OG tube on 11/29. Labetalol as needed IV. Patient to stay off lisinopril indefinitely in view of angioedema Resp: Acute respiratory failure secondary to angioedema/ pneumonia Albuterol/ipratropium aerosols every 4 hours with albuterol aerosols every 2 hours as needed for dyspnea Off inhaled Flolan Stop Solu-Medrol on 12/04. diphenhydramine 25 mg every 6 hours as needed, famotidine 20 mg IV twice daily. Start daily CPAP trials to decide extubation GI: Elevated AST Hypoalbuminemia Start tube feeds and advance to goal as tolerated with Glucerna 1.5. Famotidine for GI prophylaxis Dulcolax suppository as needed constipation : Condom catheter replaced with indwelling catheter due to retained urine Endo: Acute hyperglycemia/likely steroid-induced Sliding scale insulin with Accu-Cheks with aspart insulin/low particle every 6 hours to maintain euglycemia Renal: Strict intake output, monitor and replete electrolytes, follow BUN/creatinine. Heme: Normocytic anemia Monitor CBC daily. Follow trends. No indication for transfusion of the breast at this time. ID: Sepsis/pneumonia Pancultures sent on 11/30 for fevers and worsening respiratory status. Sputum growing staph. On Levaquin IV. ID consult requested. Off IV vancomycin currently MSK: PT evaluate and treat. FEN: Replace electrolytes per ICU electrolyte protocol. Access -Utilize peripheral IV. Central line if indicated Prophylaxis -GI -famotidine- DVT -SCD/Lovenox 40 units subcutaneously daily Discussed Condition With: Patient, nurse, at bedside. Discharge Planning: Still n.p.o. hopefully can tolerate p.o. intake over the next few days. PT following.
[2017-12-06] MEDS: Insulin NovoLOG Aspart Correctional Sugar Inj SQ SCH ×2 (00:20→05:28)
[2017-12-06] MEDS: niCARdipine Inj 25 MG in Sodium Chlor 0.9% Inj 240 ML IV.CONT PRN ×8 (02:28→23:41)
[2017-12-06] MEDS: Oral Hygiene Kit OROPHARYNG SCH ×4 (03:13→23:39)
[2017-12-06 04:40] LABS: Baso % (Auto) 0.5 % (0.0-2.0); Eos # (Auto) 0.1 th/mm3 (0.0-0.4); Eos % (Auto) 1.5 % (0.0-4.0); Hematocrit 32.2 % (39.0-51.0); Hemoglobin 10.7 gm/dL (13.0-17.0); Lymph # (Auto) 1.2 th/mm3 (1.0-4.8); Lymph % (Auto) 16.6 % (9.0-44.0); Mean Corpuscular HGB Conc 33.2 % (32.0-36.0); Mean Corpuscular Hemoglobin 27.9 pg (27.0-34.0); Mean Corpuscular Volume 84.1 fL (80.0-100.0); Mean Platelet Volume 9.2 fL (7.0-11.0); Mono # (Auto) 0.9 th/mm3 (0.0-0.9); Mono % (Auto) 11.6 % (0.0-8.0); Neut # (Auto) 5.2 th/mm3 (1.8-7.7); Neut % (Auto) 69.8 % (16.0-70.0); Platelet Count 227 th/mm3 (150-450); Red Blood Count 3.83 mil/mm3 (4.50-5.90); Red Cell Distribution Width 17.5 % (11.6-17.2); White Blood Count 7.5 th/mm3 (4.0-11.0)
[2017-12-06 05:04] LABS: Albumin 2.1 g/dL (3.4-5.0); Anion Gap 11 meq/L (5-15); Aspartate Aminotransferase 92 U/L (15-37); Blood Urea Nitrogen 16 mg/dL (7-18); Calcium 8.9 mg/dL (8.5-10.1); Carbon Dioxide 23.4 meq/L (21.0-32.0); Chloride 110 meq/L (98-107); Glomerular Filtration Rate Greater Than 89 mL/min (>89); Glucose,Random 99 mg/dL (74-106); Magnesium 1.8 mg/dL (1.5-2.5); Potassium 3.4 meq/L (3.5-5.1); Sodium 144 meq/L (136-145)
[2017-12-06 05:09] LABS: Alanine Aminotransferase 127 U/L (12-78); Alkaline Phosphatase 77 U/L (45-117); Phosphorus 3.3 mg/dL (2.5-4.9); Total Protein 6.9 g/dL (6.4-8.2)
[2017-12-06] MEDS: Enoxaparin Inj 40 MG/0.4 ML Syringe SQ SCH (05:18)
[2017-12-06] MEDS: hydrALAZINE 50 MG Tablet PO SCH ×3 (05:18→21:52)
[2017-12-06] MEDS: Hypromellose 0.3% Opth Gel 10 GM Bottle EACH EYE SCH ×2 (09:00→20:09)
[2017-12-06] MEDS: hydroCHLOROthiazide 25 MG Tablet PO SCH (09:00)
[2017-12-06] MEDS: Famotidine PF Inj 20 MG/2 ML Vial IV.PUSH SCH ×2 (09:00→20:06)
[2017-12-06] MEDS: Chlorhexidine 0.12% Oral Kit 15 ML UDC OROPHARYNG SCH ×2 (09:00→20:09)
[2017-12-06] MEDS: Senna/Docusate Sodium 8.6/50 MG Tablet PO SCH ×2 (09:01→20:09)
[2017-12-06] MEDS: amLODIPine 10 MG Tablet NG/OG SCH (09:01)
--- NOTE | 2017-12-06 12:00 | P.PNIM ---
Subjective Interval history: Patient says he is generally feeling tired. Denies any chest pain or shortness of breath. Patient reportedly failed his swallow evaluation earlier. Both he and report that he has had swallowing difficulties for years after having cervical spine surgery in the past. Physical Exam Vital signs: Vital Signs 12/05/17 12:00 12/05/17 16:00 12/05/17 19:20 Temperature 99 F 99.4 F Pulse Rate 92 H 93 H Respiratory Rate 22 20 Blood Pressure 153/84 H 150/85 H Pulse Oximetry 97 96 96 12/05/17 20:00 12/06/17 00:00 12/06/17 04:00 Temperature 99.3 F 99.1 F 99.1 F Pulse Rate 97 H 103 H 102 H Respiratory Rate 30 H 22 23 Blood Pressure 157/90 H 170/92 H 150/72 H Pulse Oximetry 96 94 L 94 L 12/06/17 08:00 Temperature 99.3 F Pulse Rate 96 H Respiratory Rate 20 Blood Pressure 157/91 H Pulse Oximetry 98 Intake & Output 12/05/17 12/06/17 12/06/17 18:59 06:59 18:59 Intake Total 250 / 250 3000 / 3000 250 / 250 Output Total 1000 / 1000 600 / 600 Balance -750 / -750 2400 / 2400 250 / 250 Weight 88.5 kg Intake: IV 250 / 250 3000 / 3000 250 / 250 Potassium Chlor 20 mEq/NACL 0. 1000 / 1000 45% Inj 1,000 ML @ 84 mls/hr IV .CONT .[id number] [facility] Rx#:[id number] NS Inj 1,000 ML @ 84 mls/hr IV. 1000 / 1000 CONT .[id number] [facility] Rx#:[id number] Cardene Inj 25 MG In NS Inj 240 250 / 250 750 / 750 250 / 250 ML @ 5 MG/HR 50 mls/hr IV.CONT TITRATE PRN Rx#:[id number] Levaquin 750 mg Premix Inj 150 150 / 150 ML @ 100 mls/hr IV.SIG Q24H [facility] Rx#:[id number] KCl 20 mEq Premix Inj 20 meq In 100 / 100 100 ml @ 50 mls/hr IV.SIG Q2H PRN Rx#:[id number] Oral 0 / 0 0 / 0 Output: Urine 1000 / 1000 600 / 600 Stool 0 / 0 Urine/Stool Mix 0 / 0 Other: Date of Last Bowel Movement 12/04/17 12/04/17 12/04/17 # Bowel Movements 0 # Incontinent Bowel Movements 0 Narrative: GENERAL: Patient sitting up in bed. Appears comfortable. Exam unchanged. SKIN: Warm and dry. Some slight abrasions on his back. No surrounding erythema. No purulence. No sign of infection. HEAD: Normocephalic. EYES: No scleral icterus. No injection or drainage. NECK: Supple, trachea midline. No JVD. CARDIOVASCULAR: Regular rate and rhythm without murmurs, gallops, or rubs. RESPIRATORY: Breath sounds equal bilaterally. No accessory muscle use. GASTROINTESTINAL: Abdomen soft, non-tender, nondistended. MUSCULOSKELETAL: No cyanosis, or edema. BACK: Nontender without obvious deformity. No CVA tenderness. Try to bedside swallow. Patient appeared to tolerate initially, however some coughing with water. - Urinary Catheter Management Straight Cath placed during this visit: yes, but has since been removed by the nurse Reason for continuing: Continue criteria not met Insertion date: 11/28/17 Insertion time: 08:30 Removal date: 12/03/17 Removal time: 15:00 Indwelling Urethral Catheter Cath placed during this visit: yes, but has since been removed by the nurse Reason for continuing: Continue criteria not met Removal date: 12/03/17 Removal time: 15:00 Results - Labs CBC & Chem 7: 12/06/17 03:45 12/06/17 03:45 Laboratory Results - last 24 hr 12/05/17 12/05/17 12/05/17 12:11 18:24 23:46 WBC RBC Hgb Hct MCV MCH MCHC RDW Plt Count MPV Neut % (Auto) Lymph % (Auto) [place] % (Auto) Eos % (Auto) Baso % (Auto) Neut # (Auto) Lymph # (Auto) [place] # (Auto) Eos # (Auto) Baso # (Auto) WBC Differential Differential Comment Sodium Potassium Chloride Carbon Dioxide Anion Gap BUN Creatinine Estimated GFR POC Glucose 111 H 104 100 Random Glucose Calcium Phosphorus Magnesium Total Bilirubin AST ALT Alkaline Phosphatase Total Protein Albumin 12/06/17 12/06/17 12/06/17 03:45 03:45 05:22 WBC 7.5 RBC 3.83 L Hgb 10.7 L Hct 32.2 L MCV 84.1 MCH 27.9 MCHC 33.2 RDW 17.5 H Plt Count 227 MPV 9.2 Neut % (Auto) 69.8 Lymph % (Auto) 16.6 [place] % (Auto) 11.6 H Eos % (Auto) 1.5 Baso % (Auto) 0.5 Neut # (Auto) 5.2 Lymph # (Auto) 1.2 [place] # (Auto) 0.9 Eos # (Auto) 0.1 Baso # (Auto) 0.0 WBC Differential . Differential Comment Auto diff final Sodium 144 Potassium 3.4 L Chloride 110 H Carbon Dioxide 23.4 Anion Gap 11 BUN 16 Creatinine 0.94 Estimated GFR Greater than 89 POC Glucose 104 Random Glucose 99 Calcium 8.9 Phosphorus 3.3 Magnesium 1.8 Total Bilirubin 0.8 AST 92 H ALT 127 H Alkaline Phosphatase 77 Total Protein 6.9 Albumin 2.1 L Microbiology 11/30/17 12:00 Blood - Peripheral Aerobic Blood Culture - Final No growth in 5 days 11/30/17 12:00 Blood - Peripheral Anaerobic Blood Culture - Final No growth in 5 days 11/30/17 12:08 Blood - Peripheral Aerobic Blood Culture - Final No growth in 5 days 11/30/17 12:08 Blood - Peripheral Anaerobic Blood Culture - Final No growth in 5 days Assessment and Plan - Plan ==12/05/17 //Angioedema //Dysphasia //Hypernatremia //Hypertension //Staff aureus, strep pneumonia //Staph epi UTI. Likely scombroid poisoning due to oysters versus angioedema secondary to lisinopril. had similar symptoms following the oysters. Hypernatremia with sodium 146. Will switch to half-normal saline. Continue n.p.o. pending improvement in swallowing. If no swallowing improvement over the next couple days, will need to pursue other forms of nutrition. Patient and family convey understanding. Continue to monitor. Blood pressure continues elevated. Patient refuses NG tube. Continue nicardipine drip due to n.p.o. status. = 12/06. Swallow evaluation failed. Refuses NG tube. Order a swallow evaluation by speech therapy. Patient reports history of swallow issues after neck surgery in the past. Will consult neurology as well. Continue IV nicardipine for blood pressure. Continue antibiotics for infection. Pending barium swallow, neck x-ray, neurology evaluation. Plan: Neuro/Psych: Currently on propofol drip at 50 mcg per kilogram per minute midazolam drip at 5 mg an hour for sedation/analgesia while intubated. Added fentanyl GTT and Ativan as needed on 11/30. Goal of RASS of -4 No daily sedation vacation until emergent airway edema subsides Ofirmev 1 g IV every 8 hours as needed fever Noted allergy to morphine/pruritus CV: Sinus tachycardia Essential hypertension Currently on normal saline at 84 cc an hour As needed labetalol/Nitropaste for hypertension. Continue Catapres patch, labetalol as needed. Added amlodipine/HCTZ p.o. daily as well as hydralazine p.o. daily via OG tube on 11/29. Labetalol as needed IV. Patient to stay off lisinopril indefinitely in view of angioedema Resp: Acute respiratory failure secondary to angioedema/ pneumonia Albuterol/ipratropium aerosols every 4 hours with albuterol aerosols every 2 hours as needed for dyspnea Off inhaled Flolan Stop Solu-Medrol on 12/04. diphenhydramine 25 mg every 6 hours as needed, famotidine 20 mg IV twice daily. Start daily CPAP trials to decide extubation GI: Elevated AST Hypoalbuminemia Start tube feeds and advance to goal as tolerated with Glucerna 1.5. Famotidine for GI prophylaxis Dulcolax suppository as needed constipation : Condom catheter replaced with indwelling catheter due to retained urine Endo: Acute hyperglycemia/likely steroid-induced Sliding scale insulin with Accu-Cheks with aspart insulin/low particle every 6 hours to maintain euglycemia Renal: Strict intake output, monitor and replete electrolytes, follow BUN/creatinine. Heme: Normocytic anemia Monitor CBC daily. Follow trends. No indication for transfusion of the breast at this time. ID: Sepsis/pneumonia Pancultures sent on 11/30 for fevers and worsening respiratory status. Sputum growing staph. On Levaquin IV. ID consult requested. Off IV vancomycin currently MSK: PT evaluate and treat. FEN: Replace electrolytes per ICU electrolyte protocol. Access -Utilize peripheral IV. Central line if indicated Prophylaxis -GI -famotidine- DVT -SCD/Lovenox 40 units subcutaneously daily Discharge Planning: Still n.p.o. hopefully can tolerate p.o. intake over the next few days. PT following.
[2017-12-06] MEDS: KCL 40 mEq/D5W/NaCl 0.45% Inj 1,000 ML IV.CONT SCH (13:00)
--- NOTE | 2017-12-06 14:20 | FL ---
EXAM DATE: 12/06/2017 1:58 PM EDT AGE/SEX: 57 years / Male INDICATIONS: Dysphagia, choking CLINICAL DATA: This is the patient's initial encounter. Patient reports that signs and symptoms have been present for 1 week and indicates a pain score of Nonresponsive. MEDICAL/SURGICAL HISTORY: . angioedema from medication allergy . cervical fusion COMPARISON: No prior exams available for comparison. FLUORO TIME: 2.4 IMAGE COUNT: 0 FINDINGS: A modified barium swallow was performed with speech pathology. Patient was given a variety of liquids to swallow. For a full detailed report, see report by the speech pathologist. CONCLUSION: Modified barium swallow as above. Electronically signed by: Mateus Wiggins MD 12/06/2017 2:19 PM EDT
--- NOTE | 2017-12-06 14:22 | XR ---
EXAM DATE: 12/06/2017 2:18 PM EDT AGE/SEX: 57 years / Male INDICATIONS: Pain in entire neck. CLINICAL DATA: This is the patient's initial encounter. Patient reports that signs and symptoms have been present for 4 - 6 months and indicates a pain score of 6/10. MEDICAL/SURGICAL HISTORY: None. . Cervical fusion. COMPARISON: No prior exams available for comparison. FINDINGS: There is anterior plate and screw fixation across C3-4-5 with solid bony fusion across C4-5. Normal a lignment. Moderate degenerative change at C2-3 and C5-6-7. CONCLUSION: Postoperative fusion across C3-4-5 as above. No acute bony abnormality. Electronically signed by: Mateus Wiggins MD 12/06/2017 2:21 PM EDT
[2017-12-06] MEDS: KCL 20 mEq/NACL 0.45% Inj 1,000 ML IV.CONT SCH (15:23)
[2017-12-06] MEDS: Labetalol HCl Inj 100 MG/20 ML Vial IV.PUSH PRN ×3 (16:34→20:10)
--- NOTE | 2017-12-06 23:08 | MB ---
cc: Chris Najera MD, PhD DATE: 12/06/2017 REASON FOR CONSULTATION: Dysphagia. HISTORY OF PRESENT ILLNESS: Mr. Flores is a 57-year-old man who had cervical spine surgery in 2000. His states that since then he has had some difficulty swallowing both solids and liquids. He has been able to get them down. No aspiration. He is now admitted with a recent onset of edema of the facial area and perioral area, which has improved since on the steroids, but his dysphasia did get worse. He has not had any other neurologic complaints. No focal weakness, double vision, etc. PAST MEDICAL HISTORY: History of cervical spine surgery, dysphagia since then, hypertension. NEUROLOGIC EXAMINATION: HIGHER CORTICAL FUNCTION: He is alert, oriented. CRANIAL NERVES: Intact. There is no ptosis. Extraocular movements are full. Tongue protrudes in the midline. There is no atrophy, no fasciculations. Palate elevates symmetrically. MOTOR: Normal. IMPRESSION: Dysphagia, possibly related to his previous cervical spine surgery. However, to rule out neuromuscular causes, I would like to check a myasthenia gravis antibody panel. We will also get an MRI of the brain to rule out any brainstem process which could be contributing to dysphagia. Chris Najera MD, PhD SASCHA/davion , 10:44 PM , 10:49 PM
[2017-12-07] MEDS: Labetalol HCl Inj 100 MG/20 ML Vial IV.PUSH PRN ×4 (01:12→12:06)
[2017-12-07] MEDS: niCARdipine Inj 25 MG in Sodium Chlor 0.9% Inj 240 ML IV.CONT PRN ×7 (01:58→17:11)
[2017-12-07] MEDS: KCL 40 mEq/D5W/NaCl 0.45% Inj 1,000 ML IV.CONT SCH ×2 (03:20→12:06)
[2017-12-07] MEDS: Enoxaparin Inj 40 MG/0.4 ML Syringe SQ SCH (05:16)
[2017-12-07] MEDS: Oral Hygiene Kit OROPHARYNG SCH ×3 (05:16→15:19)
[2017-12-07] MEDS: hydrALAZINE 50 MG Tablet PO SCH ×2 (05:16→14:47)
[2017-12-07 06:15] LABS: Baso # (Auto) 0.1 th/mm3 (0.0-0.2); Baso % (Auto) 1.3 % (0.0-2.0); Eos # (Auto) 0.1 th/mm3 (0.0-0.4); Eos % (Auto) 1.1 % (0.0-4.0); Hematocrit 30.4 % (39.0-51.0); Hemoglobin 9.8 gm/dL (13.0-17.0); Lymph # (Auto) 1.2 th/mm3 (1.0-4.8); Lymph % (Auto) 15.5 % (9.0-44.0); Mean Corpuscular HGB Conc 32.4 % (32.0-36.0); Mean Corpuscular Hemoglobin 27.7 pg (27.0-34.0); Mean Corpuscular Volume 85.6 fL (80.0-100.0); Mean Platelet Volume 9.7 fL (7.0-11.0); Mono % (Auto) 13.1 % (0.0-8.0); Neut # (Auto) 5.4 th/mm3 (1.8-7.7); Platelet Count 237 th/mm3 (150-450); Red Blood Count 3.55 mil/mm3 (4.50-5.90); Red Cell Distribution Width 17.6 % (11.6-17.2); White Blood Count 7.8 th/mm3 (4.0-11.0)
[2017-12-07 06:41] LABS: Alanine Aminotransferase 121 U/L (12-78); Albumin 2.1 g/dL (3.4-5.0); Anion Gap 10 meq/L (5-15); Aspartate Aminotransferase 99 U/L (15-37); Blood Urea Nitrogen 14 mg/dL (7-18); Calcium 8.2 mg/dL (8.5-10.1); Carbon Dioxide 22.9 meq/L (21.0-32.0); Chloride 111 meq/L (98-107); Glomerular Filtration Rate Greater Than 89 mL/min (>89); Glucose,Random 109 mg/dL (74-106); Magnesium 1.8 mg/dL (1.5-2.5); Phosphorus 3.3 mg/dL (2.5-4.9); Sodium 144 meq/L (136-145)
[2017-12-07 06:43] LABS: Alkaline Phosphatase 77 U/L (45-117); Total Protein 6.5 g/dL (6.4-8.2)
--- NOTE | 2017-12-07 08:34 | P.PNIM ---
Subjective Interval history: Patient refused MRI of the head last night. Also refusing tube feeding. No chest pain, not short of breath. Speech appears normal, no stridor. On room air. Tmax 101.1, SBP in the 170s, still coughing yellowish sputum. Physical Exam Narrative: GENERAL: Patient sitting up in bed. Appears comfortable. CARDIOVASCULAR: Regular rate and rhythm without murmurs, gallops, or rubs. RESPIRATORY: Occasional rhonchi GASTROINTESTINAL: Abdomen soft, non-tender, nondistended. MUSCULOSKELETAL: No cyanosis, or edema. AAOx3, no focal deficits - Urinary Catheter Management Straight Cath placed during this visit: yes, but has since been removed by the nurse Reason for continuing: Continue criteria not met Insertion date: 11/28/17 Insertion time: 08:30 Removal date: 12/03/17 Removal time: 15:00 Indwelling Urethral Catheter Cath placed during this visit: yes, but has since been removed by the nurse Reason for continuing: Continue criteria not met Removal date: 12/03/17 Removal time: 15:00 Results - Labs CBC & Chem 7: 12/07/17 04:13 12/07/17 04:13 Laboratory Results - last 24 hr 12/02/17 12/07/17 12/07/17 11:58 04:13 04:13 WBC 7.8 RBC 3.55 L Hgb 9.8 L Hct 30.4 L MCV 85.6 MCH 27.7 MCHC 32.4 RDW 17.6 H Plt Count 237 MPV 9.7 Neut % (Auto) 69.0 Lymph % (Auto) 15.5 [place] % (Auto) 13.1 H Eos % (Auto) 1.1 Baso % (Auto) 1.3 Neut # (Auto) 5.4 Lymph # (Auto) 1.2 [place] # (Auto) 1.0 H Eos # (Auto) 0.1 Baso # (Auto) 0.1 WBC Differential . Differential Comment Auto diff final Sodium 144 Potassium 3.0 L Chloride 111 H Carbon Dioxide 22.9 Anion Gap 10 BUN 14 Creatinine 1.02 Estimated GFR Greater than 89 Random Glucose 109 H Calcium 8.2 L Phosphorus 3.3 Magnesium 1.8 Total Bilirubin 1.0 AST 99 H ALT 121 H Alkaline Phosphatase 77 Total Protein 6.5 Albumin 2.1 L Complem C1q Component 1.8 - Imaging Impressions Cervical Spine X-Ray 08/17/18 00:00 CONCLUSION: Postoperative fusion across C3-4-5 as above. No acute bony abnormality. Videofluoroscopic Swallow 12/06/17 00:00 CONCLUSION: Modified barium swallow as above. Assessment and Plan - Plan 56-year-old male presenting with upper lip and lower lip angioedema Angioedema-possibly secondary to scombroid poisoning versus angioedema secondary to lisinopril - had similar symptoms after eating oysters. Failed swallow evaluation 2017. Patient refusing NG tube. Patient had history of dysphagia after cervical surgery in the past, neurology consulted, recommended head MRI however patient is refusing too. Hypertension- on IV nicardipine, suppose to be on Norvasc, hydralazine, hydrochlorothiazide, lisinopril stopped. Bentyl as needed. However just getting nicardipine since patient refusing NGT reinsertion. Staphylococcus and Streptococcus pneumonia-continue Levaquin, sputum culture grew Staphylococcus aureus and Streptococcus. Urine culture grew Staphylococcus epidermidis. ID following PRN, recommended levaquin and switch to oral when tolerating PO until Dec 10 to . Acute respiratory failure secondary to angioedema/ pneumonia-continue Combivent , Solu-Medrol stopped continue Benadryl and famotidine. Elevated AST Hypoalbuminemia -Continue tube feeds however refusing, LFTs stable, monitor in afew days. Hyperglycemia-likely steroid induced, monitor. Improved off steroids. Normocytic anemia - Monitor CBC daily. Follow trends. No indication for transfusion of the breast at this time. Minimize blood draws. Check iron stores Hypokalemia - replace PT evaluate and treat. GI -famotidine DVT -SCD/Lovenox 40 units subcutaneously daily
[2017-12-07] MEDS: Hypromellose 0.3% Opth Gel 10 GM Bottle EACH EYE SCH (08:52)
[2017-12-07] MEDS: Chlorhexidine 0.12% Oral Kit 15 ML UDC OROPHARYNG SCH (08:52)
[2017-12-07] MEDS: hydroCHLOROthiazide 25 MG Tablet PO SCH (08:52)
[2017-12-07] MEDS: amLODIPine 10 MG Tablet NG/OG SCH (08:53)
[2017-12-07] MEDS: Famotidine PF Inj 20 MG/2 ML Vial IV.PUSH SCH (08:55)
[2017-12-07] MEDS: Senna/Docusate Sodium 8.6/50 MG Tablet PO SCH (08:55)
--- NOTE | 2017-12-07 12:03 | P.PNID ---
Subjective Remarks: Mr. Flores is a 57-year-old -[place] male with past medical history significant for hypertension. Per review of records it appears that patient had significant swelling of upper and lower lip which was progressively getting worse associated with some tightness in his throat. Of note patient is on lisinopril at home. Prior to arrival to the emergency department patient received a dose of Benadryl and epinephrine. Patient reportedly was off his lisinopril for approximately 1 week prior to admission. Per review of records it appears that patient ate some shellfish the evening of admission. Patient did not have any urticarial rash at the time of presentation. Patient also has a history of allergy to penicillin reported as hives. No recent antibiotic use. Patient was administered IV Solu-Medrol,, Benadryl, IM epinephrine as well as albuterol inhalation. Despite the above regimen in the ED patient continued to complain of throat irritation and swelling and was found to have mild stridor on admission and therefore was nasally intubated in the emergency department. ICU course: Patient appears to have improved in terms of his lip as well as tongue swelling. At the present time patient remains in the ICU intubated on the ventilator but not on any pressors. He has good urine output. Patient was started on empiric regimen for pneumonia due to concern for sepsis. Infectious diseases consulted for the same. Medical History: Cervical vertebral fusion HTN (hypertension) Overnight events reviewed. Low grade fevers. Failed swallow eval. 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 Complains of cough occ with minimal expectoration. NPO due to concern for aspiration. No rash No diarrhea Antibiotics: Levaquin Lines: Line sites with no e.o infection Past Medical History: HTN Allergies/Adverse Reactions: Allergies lisinopril Allergy (Severe, Unverified 11/27/17 10:16) Swelling of Lip/Tongue/Throat morphine Allergy (Mild, Unverified 11/27/17 03:20) ITCHING -SWELLING penicillin G Allergy (Mild, Unverified 11/27/17 03:20) RASH AND HIVES Objective Vital Signs 12/06/17 16:00 12/06/17 20:00 12/07/17 00:00 Temperature 99.0 F 100.3 F H 99.7 F H Pulse Rate 106 H 93 H 94 H Respiratory Rate 19 24 27 H Blood Pressure 187/94 H 193/88 H 152/77 H Pulse Oximetry 94 L 12/07/17 04:00 12/07/17 08:00 Temperature 100.1 F H 99.4 F Pulse Rate 92 H 90 Respiratory Rate 23 23 Blood Pressure 169/81 H 166/83 H Pulse Oximetry 97 93 L Intake & Output 12/06/17 12/07/17 12/07/17 18:59 06:59 18:59 Intake Total 1900 / 1900 2850 / 2850 Output Total 700 / 700 Balance 1900 / 1900 2150 / 2150 Weight 81.2 kg Intake: IV 1900 / 1900 2850 / 2850 Potassium Chlor 20 mEq/NACL 0. 1000 / 1000 45% Inj 1,000 ML @ 84 mls/hr IV .CONT .[id number] [facility] Rx#:[id number] D5W/1/2NS + KCL 40 mEq Inj 1, 1000 / 1000 000 ML @ 84 mls/hr IV.CONT . [id number] [facility] Rx#:[id number] Cardene Inj 25 MG In NS Inj 240 750 / 750 1750 / 1750 ML @ 5 MG/HR 50 mls/hr IV.CONT TITRATE PRN Rx#:[id number] Ofirmev Inj 1,000 mg In 100 ml 100 / 100 @ 400 mls/hr IV.SIG Q8H PRN Rx# :[id number] Levaquin 750 mg Premix Inj 150 150 / 150 ML @ 100 mls/hr IV.SIG Q24H [facility] Rx#:[id number] Oral 0 / 0 Tube Feeding 0 / 0 Tube Irrigant 0 / 0 Water Bolus Amount 0 / 0 Other 0 / 0 Output: Urine 700 / 700 Stool 0 / 0 Urine/Stool Mix 0 / 0 Urine Amount (Catheter) 0 / 0 Indwelling Urethral Catheter 0 / 0 Other: # Voids 3 2 Date of Last Bowel Movement 12/06/17 12/06/17 12/06/17 # Bowel Movements 1 0 # Incontinent Bowel Movements 0 11/30/17 12:00 Blood - Peripheral Aerobic Blood Culture - Final No growth in 5 days 11/30/17 12:00 Blood - Peripheral Anaerobic Blood Culture - Final No growth in 5 days 11/30/17 12:08 Blood - Peripheral Aerobic Blood Culture - Final No growth in 5 days 11/30/17 12:08 Blood - Peripheral Anaerobic Blood Culture - Final No growth in 5 days 11/30/17 10:20 Sputum - Endotracheal Gram Stain - Final 11/30/17 10:20 Sputum - Endotracheal Sputum Culture - Final Staphylococcus aureus Streptococcus pneumoniae Lab - Hematology Results 12/06/17 12/07/17 03:45 04:13 WBC 7.5 7.8 RBC 3.83 L 3.55 L Hgb 10.7 L 9.8 L Hct 32.2 L 30.4 L MCV 84.1 85.6 MCH 27.9 27.7 MCHC 33.2 32.4 RDW 17.5 H 17.6 H Plt Count 227 237 MPV 9.2 9.7 Neut % (Auto) 69.8 69.0 Lymph % (Auto) 16.6 15.5 [place] % (Auto) 11.6 H 13.1 H Eos % (Auto) 1.5 1.1 Baso % (Auto) 0.5 1.3 Neut # (Auto) 5.2 5.4 Lymph # (Auto) 1.2 1.2 [place] # (Auto) 0.9 1.0 H Eos # (Auto) 0.1 0.1 Baso # (Auto) 0.0 0.1 WBC Differential . . Differential Comment Auto diff final Auto diff final Lab - Chemistry Results 12/05/17 12/05/17 12/05/17 12:11 18:24 23:46 Sodium Potassium Chloride Carbon Dioxide Anion Gap BUN Creatinine Estimated GFR POC Glucose 111 H 104 100 Random Glucose Calcium Phosphorus Magnesium Total Bilirubin AST ALT Alkaline Phosphatase Total Protein Albumin 12/06/17 12/06/17 12/07/17 03:45 05:22 04:13 Sodium 144 144 Potassium 3.4 L 3.0 L Chloride 110 H 111 H Carbon Dioxide 23.4 22.9 Anion Gap 11 10 BUN 16 14 Creatinine 0.94 1.02 Estimated GFR Greater than 89 Greater than 89 POC Glucose 104 Random Glucose 99 109 H Calcium 8.9 8.2 L Phosphorus 3.3 3.3 Magnesium 1.8 1.8 Total Bilirubin 0.8 1.0 AST 92 H 99 H ALT 127 H 121 H Alkaline Phosphatase 77 77 Total Protein 6.9 6.5 Albumin 2.1 L 2.1 L Imaging: ITS Impressions Chest X-Ray 12/03/17 05:00 CONCLUSION: Bibasilar densities, slightly improved left lung base. Cervical Spine X-Ray 12/06/17 00:00 CONCLUSION: Postoperative fusion across C3-4-5 as above. No acute bony abnormality. Videofluoroscopic Swallow 12/06/17 00:00 CONCLUSION: Modified barium swallow as above. Physical Exam: GENERAL: Sedated, on the vent, NAD SKIN: Cool and dry, no generalized rash HEAD: Atraumatic. Normocephalic. No temporal or scalp tenderness. EYES: Pupils equal round and reactive. Scleral icterus. No injection or drainage. No petechia ENT: Lips look ok. Tongue mildly swollen. NECK: Trachea midline. Supple, nontender, no meningeal signs. CARDIOVASCULAR: HS audible. RESPIRATORY: Air entry equal bilaterally. Clear to auscultation bilaterally. GASTROINTESTINAL: Abdomen soft,NT MUSCULOSKELETAL: Extremities without clubbing, cyanosis. NEUROLOGICAL: Sedated Psych could not be assessed IV line sites ok. Assessment and Plan - Plan Sepsis Pneumonia: likely aspiration, secondary to significant angioedema and airway swelling. Angioedema: lisinopril vs Shellfish induced. Allergy to Penicillin: Hives per records. Family history of angioedema: consider referral to allergy case manager as outpatient. Rule out Angioedema by initial testing. HTN acute renal failure: prerenal, meds such as Vanco IV. Recs: Continue Levaquin IV (may be switched to oral when tolerated) for at least 3-5 days depending on clinical course. CXR may lag behind in improvement. C4 low normal but at end of the episode. Informed that it is important to have an outpatient allergy case manager follow up. Follow cultures Follow clinically. ivania RN for patient. case dw patients . Reviewed allergy for penicillin as rash. Will follow prn.
[2017-12-07 15:39] LABS: % Iron Saturation 19.3 % (20-50)
--- NOTE | 2017-12-25 15:49 | P.DS ---
Date of admission: 11/27/17 02:10 Primary care physician: Elina Primary Care Physician Brief History from admission: 57-year-old male presents with upper and lower lip angioedema since approximately 8 PM with progressive worsening. Prior to arrival to the emergency department patient did receive a dose of Benadryl and epinephrine. Patient noticed some decrease in swelling to the left side of the upper lip but still feels like there is significant swelling to the upper and lower lip and has some tightness in his throat. Patient does have hypertension and has been prescribed lisinopril in the past but states he has not been on any blood pressure medication for at least 1 week. Patient did eat shellfish this evening. Patient does not present with a urticarial rash. No prior history of acute allergic reaction with similar type symptoms although does have a sensitivity with itching to morphine and rash and hives to penicillin. No recent antibiotic prescription or use. DS: Summary Hospital Course: 56-year-old male presenting with upper lip and lower lip angioedema, patient was being treated for angioedema, hypertension and Staphylococcus/Streptococcus pneumonia with Levaquin. Infectious disease was following. He was supposed to finish December 10 with antibiotics but he left AGAINST MEDICAL ADVICE. - Time Spent with Patient Total time spent providing and/or coordinating discharge services: Less than 30 minutes - Quality: VTE Deep Vein Thrombosis/Pulmonary Embolism Present on Admission: No Results Procedures completed during hospitalization: none - Impressions ITS Impressions Chest X-Ray 12/03/17 05:00 CONCLUSION: Bibasilar densities, slightly improved left lung base. Cervical Spine X-Ray 12/06/17 00:00 CONCLUSION: Postoperative fusion across C3-4-5 as above. No acute bony abnormality. Videofluoroscopic Swallow 12/06/17 00:00 CONCLUSION: Modified barium swallow as above. Discharge Plan - Discharge Disposition Patient Disposition: Left Against Medical Advice - Discharge Condition Condition: Stable - Discharge Order Discharge Orders: AMA Discharge (Routine); Ordered 12/09/17 Ordered By: Jaspal Pace - Physicians Team Primary Care Provider: Primary Care Physici,Elina Attending Provider: Jaspal Pace Other Providers: Stacy White MD ; Chris Najera MD, PhD
== END 2017-12-07 18:25 | disposition left against medical advice (07) ==
LOC: NEPC 01:16 → NEDA 02:10 → HIMC 06:55
PROVIDERS: ADMIT Hospitalist; ATTEND Hospitalist